=== PATIENT | male | born 1950 | race Caucasian/White ===

== ENCOUNTER 2018-07-31 11:53 | Emergency (ER) | payer MEDICARE ==
--- NOTE | 2018-07-31 13:56 | RADIOLOGY REPORT (SQ) ---
EXAM DESCRIPTION: CHEST SINGLE VIEW COMPLETED DATE/TIME: 07/31/2018 1:44 pm REASON FOR STUDY: Chest Pain COMPARISON: None. EXAM PARAMETERS: NUMBER OF VIEWS: One view. TECHNIQUE: Single frontal radiographic view of the chest acquired. RADIATION DOSE: NA LIMITATIONS: None. FINDINGS: LUNGS AND PLEURA: Few scattered interstitial markings. No consolidation, masses or pneumo thorax. No pleural effusion. MEDIASTINUM AND HILAR STRUCTURES: No masses. Contour normal. HEART AND VASCULAR STRUCTURES: Heart normal in size. Normal vasculature. BONES: No acute findings. HARDWARE: None in the chest. OTHER: No other significant finding. IMPRESSION: Few scattered interstitial markings. No consolidation, masses or pneumothorax. No pleur al effusion. TECHNICAL DOCUMENTATION: JOB ID: [id number] [place]-72 2010 [employer]- All Rights Reserved Reading location - IP/workstation name: [email or web address]
[2018-07-31] MEDS ORDERED: IPRATROPIUM/ALBUTEROL 0.5-2.5 MG/3 ML AMPUL NEB ONE (15:02)
[2018-07-31] MEDS ORDERED: PREDNISONE 20 MG TABLET PO ONE (15:02)
[2018-07-31] MEDS ORDERED: ASPIRIN 81 MG TABLET, CHEWABLE PO ONE (15:02)
--- NOTE | 2018-07-31 15:03 | ER Document Report ---
ED Medical Screen (RME) - General Chief Complaint: Chest Pain Stated Complaint: CHEST PAIN Time Seen by Provider: 07/31/18 15:01 Mode of Arrival: Wheelchair Information source: Patient Notes: Patient presents complaining of chest pain and shortness of breath for the past 2 days. Patient reports nausea and vomiting yesterday x4 episodes. Patient states that he has had episodes he blacks out causing him to fall today. hx: Hypertension, [place], diabetes, COPD I have greeted and performed a rapid initial assessment of this patient. A comprehensive ED assessment and evaluation of the patient, analysis of test results and completion of the medical decision making process will be conducted by additional ED providers. TRAVEL OUTSIDE OF THE [place] IN LAST 30 DAYS: No - Related Data Allergies/Adverse Reactions: Penicillins Allergy (Verified 07/31/18 12:20) Physical Exam - Vital signs Vitals: Temp Pulse Resp BP Pulse Ox 98.9 F 71 18 169/60 H 96 07/31/18 12:23 07/31/18 12:23 07/31/18 12:07/31/18 12:23 07/31/18 12:23 - Respiratory Respiratory status: No respiratory distress Breath sounds: Nonproductive cough, Wheezing - Cardiovascular Rhythm: Regular Heart sounds: S1 appreciated, S2 appreciated Course - Vital Signs Vital signs: Temp Pulse Resp BP Pulse Ox 98.9 F 71 18 169/60 H 96 07/31/18 12:23 07/31/18 12:23 07/31/18 12:23 07/31/18 12:23 07/31/18 12:23
[2018-07-31] MEDS: ALBUTEROL SULFATE 0.083% NEB 2.5 MG/3 ML AMPUL NEB SCH ×2 (15:21→16:02)
[2018-07-31 15:51] LABS: ABSOLUTE EOSINOPHILS # (AUTO) 0.2 10^3/uL (0.0-0.6); ABSOLUTE LYMPHOCYTES (AUTO) 1.7 10^3/uL (0.5-4.7); ABSOLUTE MONOCYTES (AUTO) 0.5 10^3/uL (0.1-1.4); ABSOLUTE NEUT (AUTO) 3.2 10^3/uL (1.7-8.2); BASOPHILS % (AUTO) 0.8 % (0-2); HEMATOCRIT 44.4 % (37.9-51.0); HEMOGLOBIN 15.4 g/dL (13.5-17.0); LYMPHOCYTES % (AUTO) 29.6 % (13-45); MEAN CORPUSCULAR HEMOGLOBIN 32.6 pg (27.0-33.4); MEAN CORPUSCULAR HGB CONC 34.6 g/dL (32.0-36.0); MEAN CORPUSCULAR VOLUME 94 fl (80-97); MONOCYTES % (AUTO) 9.6 % (3-13); PLATELET COUNT 111 10^3/uL (150-450); RED BLOOD COUNT 4.72 10^6/uL (4.35-5.55); RED CELL DISTRIBUTION WIDTH 12.8 % (11.5-14.0); TOTAL CELLS COUNTED % (AUTO) 100 %; WHITE BLOOD COUNT 5.6 10^3/uL (4.0-10.5)
[2018-07-31 15:57] LABS: INTERNATIONAL RATION (INR) 1.01; PROTHROMBIN TIME 13.8 SEC (11.4-15.4)
[2018-07-31 16:03] LABS: ALANINE AMINOTRANSFERASE 51 U/L (21-72); ALBUMIN 4.1 g/dL (3.5-5.0); ALKALINE PHOSPHATASE 59 U/L (38-126); ANION GAP 8 (5-19); ASPARTATE AMINO TRANSFERASE 48 U/L (17-59); BILIRUBIN,DIRECT 0.4 mg/dL (0.0-0.4); BILIRUBIN,TOTAL 0.9 mg/dL (0.2-1.3); BLOOD UREA NITROGEN 13 mg/dL (7-20); CALCIUM 9.6 mg/dL (8.4-10.2); CARBON DIOXIDE 32 mmol/L (22-30); CHLORIDE 102 mmol/L (98-107); CREATINE KINASE 216 U/L (55-170); GLUCOSE 101 mg/dL (75-110); POTASSIUM 3.7 mmol/L (3.6-5.0); TOTAL PROTEIN 7.6 g/dL (6.3-8.2)
[2018-07-31 16:15] LABS: CREATINE KINASE MB 3.3 ng/mL (<4.55); TROPONIN I 0.024 ng/mL
--- NOTE | 2018-07-31 19:39 | EKG REPORT ---
SEVERITY:- NORMAL ECG - SINUS RHYTHM : Confirmed by: Brenda Todd MD 31-Jul-2018 19:38:23
[2018-07-31] MEDS ORDERED: ONDANSETRON 4 MG TAB.RAPDIS PO ONE (19:51)
--- NOTE | 2018-07-31 19:54 | ER Document Report ---
ED General - General Chief Complaint: Chest Pain Stated Complaint: CHEST PAIN Time Seen by Provider: 07/31/18 15:01 Mode of Arrival: Wheelchair Notes: Patient is a 68-year-old male with past medical history of hypertension, hyperlipidemia, coronary artery disease who presents with multiple complaints. Patient states that for the past 24 hours he has had a throbbing, constant, diffuse chest pain. Symptoms started gradually, moderate in intensity. States this does not feel similar to when he has had ACS events in the past. States he is currently out of albuterol. Contrary to triage nursing note he denies any radiation of the pain to me. He also denies shortness of breath to me although he did acknowledge this complaint to other staff members. To me the patient's main complaint is that he is currently homeless and has nowhere to currently stay after leaving [facility] 6 today. He also states that he has been having difficulty eating or drinking secondary to nausea and vomiting but then requests a sandwich. Does not have a local primary care physician. TRAVEL OUTSIDE OF THE [place] IN LAST 30 DAYS: No - Related Data Allergies/Adverse Reactions: Penicillins Allergy (Verified 07/31/18 12:20) Past Medical History - General Information source: Patient - Social History Smoking Status: Current Every Day Smoker Frequency of alcohol use: None Drug Abuse: None Lives with: Homeless Family History: Reviewed & Not Pertinent Patient has suicidal ideation: No Patient has homicidal ideation: No - Past Medical History Cardiac Medical History: Reports: Hx Heart Attack, Hx Hypertension Pulmonary Medical History: Reports: Hx COPD Endocrine Medical History: Reports: Hx Diabetes Mellitus Type 2 Renal/ Medical History: Denies: Hx Peritoneal Dialysis Past Surgical History: Reports: Hx Cardiac Surgery - x2 stents in L leg Review of Systems - Review of Systems Notes: Constitutional: Negative for fever. HENT: Negative for sore throat. Eyes: Negative for visual changes. Cardiovascular: Positive for chest pain. Respiratory: Negative for shortness of breath. Gastrointestinal: Negative for abdominal pain, positive for nausea and vomiting Genitourinary: Negative for dysuria. Musculoskeletal: Negative for back pain. Skin: Negative for rash. Neurological: Negative for headaches, weakness or numbness. 10 point ROS negative except as marked above and in HPI. Physical Exam - Vital signs Vitals: Temp Pulse Resp BP Pulse Ox 98.9 F 71 18 169/60 H 96 07/31/18 12:23 07/31/18 12:23 07/31/18 12:23 07/31/18 12:23 07/31/18 12:23 Interpretation: Hypertensive Notes: PHYSICAL EXAMINATION: GENERAL: Well-appearing, well-nourished and in no acute distress. HEAD: Atraumatic, normocephalic. EYES: Pupils equal round and reactive to light, extraocular movements intact, sclera anicteric, conjunctiva are normal. ENT: nares patent, oropharynx clear without exudates. Moist mucous membranes. NECK: Normal range of motion, supple without lymphadenopathy LUNGS: Breath sounds clear to auscultation bilaterally and equal. No wheezes rales or rhonchi. HEART: Regular rate and rhythm without murmurs ABDOMEN: Soft, nontender, normoactive bowel sounds. No guarding, no rebound. No masses appreciated. EXTREMITIES: Normal range of motion, no pitting or edema. No cyanosis. NEUROLOGICAL: No focal neurological deficits. Moves all extremities spontaneously and on command. PSYCH: Normal mood, normal affect. SKIN: Warm, Dry, normal turgor, no rashes or lesions noted. Course - Re-evaluation Re-evalutation: 07/31/18 19:52 Patient presents with multiple complaints including chest pain, intermittent shortness of breath, nausea, vomiting and lightheadedness. The patient reports that the symptoms have been ongoing for the past 36 hours. Notably, when I enter the room the patient is asking for something to eat such as a sandwich, has all of his bags with him and notes that he currently has nowhere to live is looking to speak with social sciences research scientist. On exam patient has no concerning findings. Abdominal exam is benign and he does deny abdominal pain by history. Has a remote history of a cholecystectomy. EKG without ischemic changes. Initial troponin is negative and repeat is pending. Chest x-ray does not show overt infiltrates, no pulmonary edema or pneumothorax. Wells score 0, clinical history is not consistent with pulmonary embolus. Patient is tolerating oral intake without any difficulty. His clinical history is very atypical for ACS, dissection or any alternative life-threatening process. If repeat troponin is negative will contact social sciences research scientist to assist this patient and plan for discharge. Patient is in agreement with this plan 07/31/18 20:48 Repeat troponin remains normal. Patient remains chest pain-free. youth services specialist consult has been placed for the patient. At this time will discharge with return precautions and follow-up recommendations. Verbal discharge instructions given a the bedside and opportunity for questions given. Medication warnings reviewed. Patient is in agreement with this plan and has verbalized understanding of return precautions and the need for primary care follow-up in the next 24-72 hours. - Vital Signs Vital signs: Temp Pulse Resp BP Pulse Ox 98.7 F 71 20 132/75 H 96 07/31/18 21:02 07/31/18 12:23 07/31/18 21:02 07/31/18 21:02 07/31/18 21:02 - Laboratory Result Diagrams: 07/31/18 15:20 07/31/18 15:20 Laboratory results interpreted by me: 07/31/18 07/31/18 07/31/18 15:20 15:20 15:20 Plt Count 111 L Carbon Dioxide 32 H Creatine Kinase 216 H Lipase 327.1 H - Diagnostic Test Radiology reviewed: Image reviewed, Reports reviewed Radiology results interpreted by me: 07/31/18 19:53 Chest x-ray: No acute infiltrate or pneumothorax - EKG Interpretation by Me Additional EKG results interpreted by me: 07/31/18 19:53 Sinus rhythm, rate 65. No ST elevations or depressions. QTC is 433. Discharge - Discharge Clinical Impression: Chest discomfort COPD (chronic obstructive pulmonary disease) Qualifiers: COPD type: unspecified COPD Qualified Code(s): J44.9 - Chronic obstructive pulmonary disease, unspecified Condition: Good Disposition: HOME, SELF-CARE Additional Instructions: You were seen today for chest pain. The exact cause of your pain is unclear. However, based on your cardiac enzyme testing, chest x-ray, and EKG it does not appear that it is from an immediately life-threatening cause at this time. Although your testing here is normal is critical that you follow-up with your primary care physician for continued evaluation of this chest pain and possible stress testing. I recommended you see your physician within the next 24-48 hours to be evaluated for consideration of a stress test. Please return to emergency department immediately if you have worsening of your chest pain, s hortness of breath, vomiting, become unable to exert yourself due to pain or difficulty breathing, you pass out, or have any pain that radiates into your arms, jaw, or back. Please also return if you have any additional symptoms that are concerning to you. Prescriptions: Albuterol Sulfate [Albuterol Sulfate 5mg/1 mL] 5 mg NEB Q4 PRN #30 ml PRN Reason:
[2018-07-31] MEDS ORDERED: ONDANSETRON ODT 4 MG TAB (6 TAB/ER DISP) PO PRN (20:49)
[2018-07-31 21:09] VITALS: BP 132/75
== END 2018-07-31 21:14 | disposition home or self-care (01) ==
LOC: ER 11:53
DX: R07.9 Chest pain, unspecified (principal); J44.9 Chronic obstructive pulmonary disease, unspecified; T48.6X6A Underdosing of antiasthmatics, initial encounter; Z91.128 Patient's intentional underdosing of medication regimen for other reason; Z91.14 Patient's other noncompliance with medication regimen; R42 Dizziness and giddiness; F17.200 Nicotine dependence, unspecified, uncomplicated; I10 Essential (primary) hypertension; I25.10 Atherosclerotic heart disease of native coronary artery without angina pectoris; E11.9 Type 2 diabetes mellitus without complications; Z59.0 Homelessness; R11.2 Nausea with vomiting, unspecified; Z88.0 Allergy status to penicillin
CPT/HCPCS: 93005; 94640 ×2; 99285; 36415; 82553; 82550; 83690; 85025; 85610; 80053; 84484; 71045; 93010; A9270 ×5; J7512; J7620; S0119

== ENCOUNTER 2018-08-01 18:30 | Emergency (ER) | payer MEDICARE ==
[2018-08-01] MEDS ORDERED: IPRATROPIUM/ALBUTEROL 0.5-2.5 MG/3 ML AMPUL NEB ONE ×2 (19:19→23:46)
[2018-08-01] MEDS ORDERED: PREDNISONE 20 MG TABLET PO ONE (19:20)
--- NOTE | 2018-08-01 19:22 | ER Document Report ---
ED Medical Screen (RME) - General Chief Complaint: Shortness Of Breath Stated Complaint: DIFFICULTY BREATHING Time Seen by Provider: 08/01/18 19:18 Mode of Arrival: Ambulatory Information source: Patient Notes: Patient presents complaining of difficulty breathing since yesterday that he feels has worsened today. Patient is currently homeless and was seen here yesterday for this complaint. Patient states that he tried to get up with the homeless [facility] but he only got the voicemail. Patient states that he is not here because he is homeless because he feels his breathing is worse. Patient does have a history of COPD. I have greeted and performed a rapid initial assessment of this patient. A comprehensive ED assessment and evaluation of the patient, analysis of test results and completion of the medical decision making process will be conducted by additional ED providers. TRAVEL OUTSIDE OF THE [place] IN LAST 30 DAYS: No - Related Data Allergies/Adverse Reactions: Penicillins Allergy (Verified 08/01/18 18:37) Past Medical History - Social History Chew tobacco use (# tins/day): No Frequency of alcohol use: None Drug Abuse: None - Past Medical History Cardiac Medical History: Reports: Hx Heart Attack, Hx Hypertension Pulmonary Medical History: Reports: Hx COPD Endocrine Medical History: Reports: Hx Diabetes Mellitus Type 2 Renal/ Medical History: Denies: Hx Peritoneal Dialysis Past Surgical History: Reports: Hx Cardiac Surgery - x2 stents in L leg Physical Exam - Vital signs Vitals: Temp Pulse Resp BP Pulse Ox 98.7 F 67 18 160/58 H 96 08/01/18 18:41 08/01/18 18:41 08/01/18 18:41 08/01/18 18:41 08/01/18 18:41 - Respiratory Breath sounds: Nonproductive cough, Wheezing Course - Vital Signs Vital signs: Temp Pulse Resp BP Pulse Ox 98.7 F 67 18 160/58 H 96 08/01/18 18:41 08/01/18 18:41 08/01/18 18:41 08/01/18 18:41 08/01/18 18:41
[2018-08-01] MEDS ORDERED: ALBUTEROL SULFATE 0.083% NEB 2.5 MG/3 ML AMPUL NEB ONE ×2 (19:23→23:53)
--- NOTE | 2018-08-01 21:00 | RADIOLOGY REPORT (SQ) ---
EXAM DESCRIPTION: XR CHEST 2 VIEWS COMPLETED DATE/TME: 08/01/2018 19:19 CLINICAL HISTORY: 68 years, Male, sob COMPARISON: Prior study from NUMBER OF VIEWS: Two TECHNIQUE: Frontal and lateral radiograph of the chest were obtained LIMITATIONS: None. FINDINGS: Cardiac and mediastinal contours are stable. Lungs are clear. No pleural effusion or pneumothorax. IMPRESSION: No acute disease. copyright 2010 [employer]- All Rights Reserved
[2018-08-01] MEDS ORDERED: DEXAMETHASONE 4 MG TABLET PO ONE (23:36)
[2018-08-01] MEDS ORDERED: ALBUTEROL SULFATE HFA (90 MCG/PUFF) 200 PUFF/8.5 GM MDI IH ONE (23:50)
--- NOTE | 2018-08-01 23:50 | ER Document Report ---
ED General - General Chief Complaint: Shortness Of Breath Stated Complaint: DIFFICULTY BREATHING Time Seen by Provider: 08/01/18 19:18 Mode of Arrival: Ambulatory Notes: Patient is a 68-year-old male past medical history of COPD, coronary artery disease, presents with shortness of breath. Patient was seen yesterday, states that his shortness of breath worsened upon discharge as he was unable to fill his prescription for inhalers. Describes it as being a constant, mild to moderate shortness of breath. Exertion worsens the shortness of breath. Nothing improves or shortness of breath. States this feels very similar to COPD exacerbations that has had in the past. Denies any ongoing chest pain. Reports that he also has had pain and swelling to his left ankle that started within the last 24 hours. This is a throbbing, constant, aching discomfort worsened by walking. Nothing improves the pain. Denies a history of similar symptoms in the past. TRAVEL OUTSIDE OF THE [place] IN LAST 30 DAYS: No - Related Data Allergies/Adverse Reactions: Penicillins Allergy (Verified 08/01/18 18:37) Past Medical History - General Information source: Patient - Social History Smoking Status: Current Every Day Smoker Chew tobacco use (# tins/day): No Frequency of alcohol use: None Drug Abuse: None Lives with: Homeless Family History: Reviewed & Not Pertinent Patient has suicidal ideation: No Patient has homicidal ideation: No - Past Medical History Cardiac Medical History: Reports: Hx Heart Attack, Hx Hypertension Pulmonary Medical History: Reports: Hx COPD Endocrine Medical History: Reports: Hx Diabetes Mellitus Type 2 Renal/ Medical History: Denies: Hx Peritoneal Dialysis Past Surgical History: Reports: Hx Cardiac Surgery - x2 stents in L leg Review of Systems - Review of Systems Notes: Constitutional: Negative for fever. HENT: Negative for sore throat. Eyes: Negative for visual changes. Cardiovascular: Negative for chest pain. Respiratory: Positive for shortness of breath. Gastrointestinal: Negative for abdominal pain, vomiting or diarrhea. Genitourinary: Negative for dysuria. Musculoskeletal: Positive for left ankle pain Skin: Negative for rash. Neurological: Negative for headaches, weakness or numbness. 10 point ROS negative except as marked above and in HPI. Physical Exam - Vital signs Vitals: Temp Pulse Resp BP Pulse Ox 98.7 F 67 18 160/58 H 96 08/01/18 18:41 08/01/18 18:41 08/01/18 18:41 08/01/18 18:41 08/01/18 18:41 Interpretation: Hypertensive Notes: PHYSICAL EXAMINATION: GENERAL: Well-appearing, well-nourished and in no acute distress. HEAD: Atraumatic, normocephalic. EYES: Pupils equal round and reactive to light, extraocular movements intact, sclera anicteric, conjunctiva are normal. ENT: nares patent, oropharynx clear without exudates. Moist mucous membranes. NECK: Normal range of motion, supple without lymphadenopathy LUNGS: Breath sounds clear to auscultation bilaterally and equal. Faint expiratory wheezing in all lung [place] HEART: Regular rate and rhythm without murmurs, 2+ DP pulses bilaterally ABDOMEN: Soft, nontender, normoactive bowel sounds. No guarding, no rebound. No masses appreciated. EXTREMITIES: Normal range of motion, mild swelling to the left ankle. NEUROLOGICAL: No focal neurological deficits. Moves all extremities spontaneously and on command. PSYCH: Normal mood, normal affect. SKIN: Warm, Dry, normal turgor, no rashes or lesions noted. Course - Re-evaluation Re-evalutation: 08/01/18 23:49 Patient presents complaining of worsening of shortness of breath relative to yesterday. Admits that he did not fill his prescriptions for inhalers or steroids as he cannot afford these medications. Denies chest discomfort today. Is stating that he is having some left ankle pain and swelling although on exam there is minimal swelling and no deformity to the ankle, no limited range of motion, no edema nothing to suggest a DVT. X-ray demonstrates findings of o steoarthritis with likely reactive edema. Mild wheezing at time of presentation but vitals do not show significant hypoxemia or tachypnea. No retractions. Patient did clinically improve after receiving nebulizers here in the emergency department. Chest x-ray without evidence of an acute pneumonia. Laboratories do not show acute kidney injury or significant leukocytosis. Repeat troponin remains normal. Patient able to ambulate without any respiratory distress. Based on patient's overall reassuring assessment, I believe they are stable for outpatient management with steroids. I gave him a dose of dexamethasone here today due to his inability to fill outpatient prescriptions. I have also sent him home with an albuterol MDI. I do not suspect an acute alternative pathology at this time based on history and exam including acute pulmonary embolus, ACS, pneumothorax, or aortic dissection. At this time will discharge with return precautions and follow-up recommendations. Verbal discharge instructions given a the bedside and opportunity for questions given. Medication warnings reviewed. Patient is in agreement with this plan and has verbalized understanding of return precautions and the need for primary care follow-up in the next 24-72 hours. - Vital Signs Vital signs: Temp Pulse Resp BP Pulse Ox 98.1 F 54 L 18 159/59 H 96 08/02/18 02:04 08/02/18 02:04 08/02/18 02:04 08/02/18 02:04 08/02/18 02:04 - Laboratory Result Diagrams: 08/01/18 23:35 08/01/18 23:35 Laboratory results interpreted by me: 08/01/18 08/01/18 23:35 23:35 Plt Count 112 L Potassium 3.3 L - Diagnostic Test Radiology reviewed: Image reviewed, Reports reviewed Radiology results interpreted by me: 08/02/18 01:27 Chest x-ray: No acute infiltrate or pneumothorax Left ankle x-ray: Shaina arthritis with associated swelling - EKG Interpretation by Me Additional EKG results interpreted by me: 08/02/18 04:58 Sinus bradycardia, rate 44, intermittent PACs. No ST elevations or depressions. QTC 392. Discharge - Discharge Clinical Impression: Shortness of breath COPD (chronic obstructive pulmonary disease) Qualifiers: COPD type: unspecified COPD Qualified Code(s): J44.9 - Chronic obstructive pulmonary disease, unspecified Left ankle pain Qualifiers: Chronicity: acute Qualified Code(s): M25.572 - Pain in left ankle and joints of left foot Condition: Good Disposition: HOME, SELF-CARE Additional Instructions: You were seen for a COPD exacerbation. Your symptoms improved with treatment here in the emergency department. However, it is very important that you return to the emergency department immediately if you began to have worsening diff iculty breathing that does not respond to your normal home nebulizers. Your given a long-acting steroid here in the emergency department. Please use the albuterol inhaler with which you have been sent home as needed for shortness of breath. Please also follow closely with your primary care physician. You should eturn to emergency department if you develop fever greater than 101, persistent cough, persistent vomiting, pass out, or any other symptoms that are concerning to you. Your ankle x-ray shows arthritis and the swelling is likely due to the underlying arthritis. Take Tylenol ibuprofen per box instructions as needed for pain. You have been provided an Mateusz wrap and crutches to help reduce weightbearing on the ankle.
[2018-08-01 23:53] LABS: ABSOLUTE EOSINOPHILS # (AUTO) 0.1 10^3/uL (0.0-0.6); ABSOLUTE MONOCYTES (AUTO) 0.5 10^3/uL (0.1-1.4); ABSOLUTE NEUT (AUTO) 3.2 10^3/uL (1.7-8.2); BASOPHILS % (AUTO) 0.7 % (0-2); EOSINOPHILS % (AUTO) 1.3 % (0-6); HEMATOCRIT 43.9 % (37.9-51.0); HEMOGLOBIN 14.9 g/dL (13.5-17.0); LYMPHOCYTES % (AUTO) 34.4 % (13-45); MEAN CORPUSCULAR HEMOGLOBIN 32.2 pg (27.0-33.4); MEAN CORPUSCULAR HGB CONC 33.9 g/dL (32.0-36.0); MEAN CORPUSCULAR VOLUME 95 fl (80-97); MONOCYTES % (AUTO) 8.8 % (3-13); PLATELET COUNT 112 10^3/uL (150-450); RED BLOOD COUNT 4.63 10^6/uL (4.35-5.55); RED CELL DISTRIBUTION WIDTH 13.1 % (11.5-14.0); SEGMENTED NEUTROPHILS % (AUTO) 54.8 % (42-78); TOTAL CELLS COUNTED % (AUTO) 100 %; WHITE BLOOD COUNT 5.8 10^3/uL (4.0-10.5)
[2018-08-02 00:06] LABS: ANION GAP 7 (5-19); BLOOD UREA NITROGEN 19 mg/dL (7-20); CALCIUM 9.2 mg/dL (8.4-10.2); CARBON DIOXIDE 30 mmol/L (22-30); CHLORIDE 102 mmol/L (98-107); GLUCOSE 85 mg/dL (75-110); POTASSIUM 3.3 mmol/L (3.6-5.0); SODIUM 139.2 mmol/L (137-145)
--- NOTE | 2018-08-02 00:39 | RADIOLOGY REPORT (SQ) ---
EXAM DESCRIPTION: XR ANKLE 2 VIEWS COMPLETED DATE/TME: 08/01/2018 23:45 CLINICAL HISTORY: 68 years Male, ankle pain COMPARISON: None. Findings: Mild/moderate osteoarthritis. Mild diffuse swelling moderate fragmented calcaneal enthesophytes. Small chronic calcification at the distal Achilles tendon may indicate chronic Achilles tendinous injury. Atherosclerotic vascular disease. Bones, joints, and soft tissues of the LEFT XR ANKLE 2 VIEWS appear otherwise unremarkable. IMPRESSION: Swelling.
[2018-08-02 02:13] VITALS: BP 159/59
--- NOTE | 2018-08-02 07:55 | EKG REPORT ---
SEVERITY:- ABNORMAL ECG - SINUS RHYTHM MULTIPLE ATRIAL PREMATURE COMPLEXES : Confirmed by: Brenda Todd MD 02-Aug-2018 07:54:27
== END 2018-08-02 02:14 | disposition home or self-care (01) ==
LOC: ER 18:30
DX: R06.02 Shortness of breath (principal); M25.572 Pain in left ankle and joints of left foot; R06.00 Dyspnea, unspecified; J44.9 Chronic obstructive pulmonary disease, unspecified; F17.200 Nicotine dependence, unspecified, uncomplicated; E11.9 Type 2 diabetes mellitus without complications; I25.2 Old myocardial infarction; Z88.0 Allergy status to penicillin
CPT/HCPCS: 93005; 99285; 36415; 85025; 80048; 84484; 73600; 71046; 93010; A9270 ×3; J3490; J7620

== ENCOUNTER 2018-08-07 13:08 | Inpatient (IN) | payer MEDICARE ==
[2018-08-07] MEDS ORDERED: IPRATROPIUM/ALBUTEROL 0.5-2.5 MG/3 ML AMPUL NEB ONE (13:34)
[2018-08-07] MEDS ORDERED: METHYLPREDNISOLONE INJ 125 MG/2 ML SDV IV ONE (13:34)
--- NOTE | 2018-08-07 13:34 | ER Document Report ---
ED Respiratory Problem - General Stated Complaint: DIFFICULTY BREATHING Time Seen by Provider: 08/07/18 13:27 Notes: [age]-year-old male history congestive heart failure and smoking presents to the ER with shortness of breath and leg swelling and start since last . Patient is homeless. He is been doing a lot of walking but he states his legs have been swelling more. He has been coughing the cough is been nonproductive. Complains of a lot of exertional dyspnea. States he broke out into a sweat earlier today. Complain of a lot of chest tightness. Not chest pain in particular. Some nausea no vomiting. No fever no chills. TRAVEL OUTSIDE OF THE [place] IN LAST 30 DAYS: No - Related Data Allergies/Adverse Reactions: Penicillins Allergy (Verified 08/01/18 18:37) Past Medical History - Social History Smoking Status: Current Every Day Smoker Family History: Reviewed & Not Pertinent - Past Medical History Cardiac Medical History: Reports: Hx Heart Attack, Hx Hypertension Pulmonary Medical History: Reports: Hx COPD Endocrine Medical History: Reports: Hx Diabetes Mellitus Type 2 Renal/ Medical History: Denies: Hx Peritoneal Dialysis Past Surgical History: Reports: Hx Cardiac Surgery - x2 stents in L leg Review of Systems - Review of Systems Constitutional: denies: Chills, Fever Cardiovascular: Other - Chest tightness. denies: Chest pain Respiratory: Cough, Short of breath, Wheezing. denies: Hurts to breathe, Hemoptysis Gastrointestinal: Nausea. denies: Diarrhea, Vomiting Genitourinary: denies: Dysuria Neurological/Psychological: denies: Headaches -: Yes All other systems reviewed and negative Physical Exam - Vital signs Vitals: BP 159/45 H 08/07/18 13:22 - Notes Notes: GENERAL_APPEARANCE: well_nourished, alert, cooperative, no dyspnea VITALS: reviewed, see vital signs table. HEAD: no_swelling\tenderness on the head. EYES: PERRL, EOMI, conjunctiva_clear. NOSE: no_nasal_discharge. MOUTH: (-)decreased moisture. THROAT: no_tonsilar_inflammation, no_airway_obstruction. no_lymphadenopathy NECK: supple, no_neck_tenderness, (-)thyromegaly. BACK: no_back_tenderness. CHEST_WALL: no_chest_tenderness. LUNGS: Scattered_wheezing, no_rales, no_rhonchi, (-)accessory muscle use, fair air exchange bilateral. HEART: normal_rate, normal_rhythm, normal_S1, normal_S2, (-)S3, (-)S4, no_murmur, no_rub. ABDOMEN: soft, no_abd_tenderness, (-)guarding, (-)rebound, no_organomegaly, no_abd_masses. EXTREMITIES: strength 5/5 in all_extremities, good pulses in all_extremities, no_swelling\tenderness in the extremities, no_edema. SKIN: warm, dry, good_color, no_rash. MENTAL_STATUS: speech_clear, oriented_X_3, normal_affect, responds_appropriately to questions. Course - Re-evaluation Re-evalutation: 08/07/18 13:34 68-year-old now presents emerged department with difficulty breathing. He does have wheezing on exam he does have lower extremity swelling. His one foot does have some black and blue izaguirre but they look old. We will get an x-ray that to assess for any old fractures the patient is homeless and does walk a lot. A lot of this may just be dependent edema with a COPD exacerbation. 08/07/18 16:38 Patient has a COPD exacerbation and did better after aerosol treatments and steroids. Feet are swollen his BNP is low he does sound wheezy but not crackly. I do not think he is in failure think his lower extremity edema is due to cellulitis and dependent edema from walking the patient is walking and sometimes he walks and poor foot wear and he has a lot of bruising and small cuts to the feet. This is likely the cause of the cellulitis. He has pulses present. I gave the patient a dose of Unasyn here got cultures and a lactic he is not septic. However he has no follow-up mechanism him being homeless. Will hospitalize him for observation serial aerosol treatments for good pulmonary hygiene and a couple doses of IV antibiotics for the cellulitis. - Vital Signs Vital signs: Temp Pulse Resp BP Pulse Ox 17 142/53 H 100 08/07/18 14:02 08/07/18 14:02 08/07/18 14:02 - Laboratory Result Diagrams: 08/07/18 13:30 08/07/18 13:30 Laboratory results interpreted by me: 08/07/18 08/07/18 13:30 13:30 RBC 4.22 L Plt Count 107 L Potassium 3.4 L Glucose 197 H Creatine Kinase 310 H - Diagnostic Test Radiology reviewed: Reports reviewed Radiology results interpreted by me: 08/07/18 16:37 Chest X-Ray 08/07/18 13:30 IMPRESSION: NO ACUTE RADIOGRAPHIC FINDING IN THE CHEST. Foot X-Ray 08/07/18 13:30 IMPRESSION: NEGATIVE STUDY OF THE RIGHT FOOT. NO RADIOGRAPHIC EVIDENCE OF ACUTE INJURY. Discharge - Discharge Clinical Impression: Cellulitis of both feet COPD (chronic obstructive pulmonary disease) Qualifiers: COPD type: COPD with acute exacerbation Qualified Code(s): J44.1 - Chronic obstructive pulmonary disease with (acute) exacerbation Disposition: ADMITTED OBSERVATION Admitting Provider: Denny (Hospitalist) Unit Admitted: Telemetry
[2018-08-07 13:46] LABS: ABSOLUTE BASOPHILS # (AUTO) 0.1 10^3/uL (0.0-0.2); ABSOLUTE EOSINOPHILS # (AUTO) 0.2 10^3/uL (0.0-0.6); ABSOLUTE LYMPHOCYTES (AUTO) 1.2 10^3/uL (0.5-4.7); ABSOLUTE MONOCYTES (AUTO) 0.5 10^3/uL (0.1-1.4); ABSOLUTE NEUT (AUTO) 3.7 10^3/uL (1.7-8.2); BASOPHILS % (AUTO) 0.9 % (0-2); EOSINOPHILS % (AUTO) 4.2 % (0-6); HEMATOCRIT 39.3 % (37.9-51.0); HEMOGLOBIN 13.9 g/dL (13.5-17.0); LYMPHOCYTES % (AUTO) 20.7 % (13-45); MEAN CORPUSCULAR HEMOGLOBIN 32.8 pg (27.0-33.4); MEAN CORPUSCULAR HGB CONC 35.2 g/dL (32.0-36.0); MEAN CORPUSCULAR VOLUME 93 fl (80-97); MONOCYTES % (AUTO) 8.7 % (3-13); PLATELET COUNT 107 10^3/uL (150-450); RED BLOOD COUNT 4.22 10^6/uL (4.35-5.55); RED CELL DISTRIBUTION WIDTH 12.9 % (11.5-14.0); SEGMENTED NEUTROPHILS % (AUTO) 65.5 % (42-78); TOTAL CELLS COUNTED % (AUTO) 100 %; WHITE BLOOD COUNT 5.6 10^3/uL (4.0-10.5)
--- NOTE | 2018-08-07 13:54 | RADIOLOGY REPORT (SQ) ---
EXAM DESCRIPTION: CHEST SINGLE VIEW COMPLETED DATE/TIME: 08/07/2018 1:45 pm REASON FOR STUDY: SOB COMPARISON: 08/01/2018 EXAM PARAMETERS: NUMBER OF VIEWS: One view. TECHNIQUE: Single frontal radiographic view of the chest acquired. RADIATION DOSE: NA LIMITATIONS: None. FINDINGS: LUNGS AND PLEURA: No opacities, masses or pneumothorax. No pleural effusion. MEDIASTINUM AND HILAR STRUCTURES: No masses. Contour normal. HEART AND VASCULAR STRUCTURES: Heart normal in size. Normal vasculature. BONES: No acute findings. HARDWARE: None in the chest. OTHER: No other significant finding. IMPRESSION: NO ACUTE RADIOGRAPHIC FINDING IN THE CHEST. TECHNICAL DOCUMENTATION: JOB ID: [id number] [employer]- All Rights Reserved Reading location - IP/workstation name: [email or web address]
--- NOTE | 2018-08-07 13:56 | RADIOLOGY REPORT (SQ) ---
EXAM DESCRIPTION: FOOT RIGHT COMPLETE COMPLETED DATE/TIME: 08/07/2018 1:45 pm REASON FOR STUDY: FOOT PAIN COMPARISON: None. NUMBER OF VIEWS: Three views. TECHNIQUE: AP, lateral and oblique radiographic images acquired of the right foot. LIMITATIONS: None. FINDINGS: MINERALIZATION: Normal. BONES: No fracture or dislocation. There is deformity of the head of the 3rd metatarsal suggesting p rior injury. JOINTS: No effusions. SOFT TISSUES: No soft tissue swelling. No foreign body. OTHER: No other significant finding. IMPRESSION: NEGATIVE STUDY OF THE RIGHT FOOT. NO RADIOGRAPHIC EVIDENCE OF ACUTE INJURY. TECHNICAL DOCUMENTATION: JOB ID: [id number] [employer]- All Rights Reserved Reading location - IP/workstation name: [email or web address]
[2018-08-07 13:57] LABS: INTERNATIONAL RATION (INR) 1.07; PROTHROMBIN TIME 14.5 SEC (11.4-15.4)
--- NOTE | 2018-08-07 14:01 | EKG REPORT ---
SEVERITY:- BORDERLINE ECG - SINUS RHYTHM VENTRICULAR PREMATURE COMPLEX BORDERLINE PROLONGED QT INTERVAL : Confirmed by: John Kohler MD 07-Aug-2018 14:00:51
[2018-08-07 14:04] LABS: ALANINE AMINOTRANSFERASE 38 U/L (21-72); ALBUMIN 3.5 g/dL (3.5-5.0); ALKALINE PHOSPHATASE 59 U/L (38-126); ANION GAP 7 (5-19); ASPARTATE AMINO TRANSFERASE 28 U/L (17-59); BILIRUBIN,DIRECT 0.3 mg/dL (0.0-0.4); BLOOD UREA NITROGEN 13 mg/dL (7-20); CALCIUM 9.3 mg/dL (8.4-10.2); CARBON DIOXIDE 29 mmol/L (22-30); CHLORIDE 102 mmol/L (98-107); CREATINE KINASE 310 U/L (55-170); GLUCOSE 197 mg/dL (75-110); POTASSIUM 3.4 mmol/L (3.6-5.0); SODIUM 138.4 mmol/L (137-145); TOTAL PROTEIN 6.4 g/dL (6.3-8.2)
[2018-08-07 14:17] LABS: TROPONIN I 0.015 ng/mL
[2018-08-07] MEDS ORDERED: ONDANSETRON HCL INJ/PF 4 MG/2 ML SDV IV PRN (17:19)
--- NOTE | 2018-08-07 17:19 | PDOC H&P ---
History of Present Illness Admission Date/PCP: 08/07/18 16:44 Patient complains of: Came to the emergency room with complaints of pain redness in both feet. History of Present Illness: AREN SIMPSON is a 68 year old male with a history of hypertension, diabetes mellitus, congestive heart failure, myocardial ischemia left lower leg stent placement, left carotid endarterectomy, COPD, emphysema came to the emergency room with complaints of redness of the both feet associated with swelling and pain for the last few days. He is homeless and walking in the [place]. He is also told the ER physician he has a problem with breathing and increasing wheezing with minimal activity. Medical consult was called for admission. Patient denies any history of fever complaining of nonspecific shortness of breath associated wheezing and dry cough denies any headache dizzy spells denies any nausea vomiting diarrhea denies any abdominal pains denies any symptoms complaining of redness swelling of the both feet associated with severe pain. Past Medical History Cardiac Medical History: Reports: Myocardial Infarction, Hypertension Pulmonary Medical History: Reports: Chronic Obstructive Pulmonary Disease (COPD) Endocrine Medical History: Reports: Diabetes Mellitus Type 2 Psychiatric Medical History: Reports: Depression Past Surgical History Past Surgical History: Reports: Cholecystectomy, Other - Left carotid endarterectomy, stent placement in the left lower extremity. Social History Information Source: Patient Smoking Status: Current Every Day Smoker Hx Recreational Drug Use: No Hx Prescription Drug Abuse: No - Advance Directive Resuscitation Status: Full Code Family History Family History: Reviewed & Not Pertinent Parental Family History Reviewed: Yes - Family history of hypertension and diabetes mellitus Children Family History Reviewed: Yes Sibling(s) Family History Reviewed.: Yes Medication/Allergy Home Medications: Albuterol Sulfate [Albuterol Sulfate 5mg/1 mL] 5 mg NEB Q4 PRN #30 ml 07/31/18 Allergies/Adverse Reactions: Penicillins Allergy (Verified 08/07/18 16:57) Review of Systems Constitutional: ABSENT: fever(s) Eyes: ABSENT: visual disturbances Ears: ABSENT: hearing changes Cardiovascular: ABSENT: chest pain, dyspnea on exertion, edema, orthropnea, palpitations Respiratory: PRESENT: cough, dyspnea Gastrointestinal: ABSENT: abdominal pain, constipation, diarrhea, hematemesis, hematochezia, nausea, vomiting Genitourinary: ABSENT: dysuria, hematuria Integumentary: PRESENT: wounds, other - Planing of redness of the both feet associated to swelling and pain. Neurological: ABSENT: abnormal gait, abnormal speech, confusion, dizziness, focal weakness, syncope Endocrine: ABSENT: cold intolerance, heat intolerance, polydipsia, polyuria Hematologic/Lymphatic: ABSENT: easy bleeding, easy bruising Physical Exam Vital Signs: Temp Pulse Resp BP Pulse Ox 98.5 F 15 194/55 H 97 08/07/18 15:02 08/07/18 16:02 08/07/18 16:02 08/07/18 16:02 General appearance: PRESENT: no acute distress, obese Head exam: PRESENT: atraumatic Eye exam: PRESENT: PERRLA Mouth exam: PRESENT: moist, tongue midline Teeth exam: PRESENT: poor dentation Neck exam: ABSENT: carotid bruit, JVD, lymphadenopathy, thyromegaly Respiratory exam: PRESENT: decreased breath sounds, wheezes Cardiovascular exam: PRESENT: RRR. ABSENT: diastolic murmur, rubs, systolic murmur Pulses: PRESENT: normal dorsalis pedis pul GI/Abdominal exam: PRESENT: normal bowel sounds, soft. ABSENT: distended, guarding, mass, organolmegaly, rebound, tenderness Rectal exam: PRESENT: deferred Extremities exam: PRESENT: +1 edema, other - Both feet looks erythematous with scratch izaguirre, looks like cellulitis. Neurological exam: PRESENT: alert, awake, oriented to person, oriented to place, oriented to time, oriented to situation, CN II-XII grossly intact. ABSENT: motor sensory deficit Psychiatric exam: PRESENT: anxious Results Laboratory Results: 08/07/18 13:30 08/07/18 13:30 08/07/18 08/07/18 08/07/18 13:30 13:30 15:25 WBC 5.6 RBC 4.22 L Hgb 13.9 Hct 39.3 MCV 93 MCH 32.8 MCHC 35.2 RDW 12.9 Plt Count 107 L Seg Neutrophils % 65.5 Lymphocytes % 20.7 Monocytes % 8.7 Eosinophils % 4.2 Basophils % 0.9 Absolute Neutrophils 3.7 Absolute Lymphocytes 1.2 Absolute Monocytes 0.5 Absolute Eosinophils 0.2 Absolute Basophils 0.1 Sodium 138.4 Potassium 3.4 L Chloride 102 Carbon Dioxide 29 Anion Gap 7 BUN 13 Creatinine 0.70 Est GFR ( Amer) > 60 Est GFR (Non-Af Amer) > 60 Glucose 197 H Lactic Acid 1.2 Calcium 9.3 Total Bilirubin 1.0 AST 28 ALT 38 Alkaline Phosphatase 59 Total Protein 6.4 Albumin 3.5 08/07/18 08/07/18 13:30 13:30 Creatine Kinase 310 H Troponin I 0.015 NT-Pro-B Natriuret Pep 425 Impressions: Chest X-Ray 08/07/18 13:30 IMPRESSION: NO ACUTE RADIOGRAPHIC FINDING IN THE CHEST. Foot X-Ray 08/07/18 13:30 IMPRESSION: NEGATIVE STUDY OF THE RIGHT FOOT. NO RADIOGRAPHIC EVIDENCE OF ACUTE INJURY. Assessment and Plan - Diagnosis (1) COPD (chronic obstructive pulmonary disease) Qualifiers: COPD type: COPD with acute exacerbation Qualified Code(s): J44.1 - Chronic obstructive pulmonary disease with (acute) exacerbation Is this a current diagnosis for this admission?: Yes Plan: 08/07/2018 patient is going to be admitted for COPD exacerbation to place him on oxygen 2 L nasal cannula, restart his albuterol inhaler and albuterol nebulizations. GI prophylaxis DVT prophylaxis initiated. To place him on nicotine patch. COPD most likely secondary to chronic smoking. pt is not on home oxygen. (2) Cellulitis of both feet Is this a current diagnosis for this admission?: Yes Plan: 08/07/2018-plan to do the blood cultures and to start him on levo floxacillin 500 mg IV daily. Patient is allergic to penicillins. (3) CHF (congestive heart failure) Is this a current diagnosis for this admission?: No Plan: 08/07/2018-patient is given history of congestive heart failure. Have the echocardiogram report to restart his Coreg he is not in any diuretics at this point as per the patient. Based on the history most likely has chronic systolic heart failure. (4) HTN (hypertension) Is this a current diagnosis for this admission?: No Plan: 08/07/2018-patient blood pressure in the emergency room is 194/105. To start him on hydralazine 10 mg p.o. every 6 hours and restart Coreg 3.25 mg p.o. twice a day and to start him on Lasix 20 mg p.o. twice daily. To start him on low- sodium diet. (5) Diabetes Is this a current diagnosis for this admission?: No Plan: 08/07/2018-patient given history of type 2 diabetes mellitus. To check his hemoglobin A1c he takes metformin at home. To hold metformin during the hospital stay and to place him on insulin sliding scale before meals and at bedtime. (6) PVD (peripheral vascular disease) Is this a current diagnosis for this admission?: No Plan: 08/07/2018-patient given history of peripheral vascular disease he has left lower extremity stent was placed 8 years ago. He is on Plavix. Is also taking aspirin at home. Plan to resume those medications. (7) Tobacco use Is this a current diagnosis for this admission?: No Plan: 08/07/2018-patient is given history of chronic smoking for more than 40 years. Smokes close to 1 pack/day. Smoking counseling was provided for more than [address] him on nicotine patch 21 mg daily. - Time Time Spent with patient: 25-34 minutes Smoking Cessation Education: over 10 minutes Medications reviewed and adjusted accordingly: Yes Anticipated discharge: Home
[2018-08-07] MEDS ORDERED: GLUCAGON,HUMAN RECOMB 1 MG INJ IM PRN (17:30)
[2018-08-07] MEDS ORDERED: DEXTROSE 50%-WATER 25 GM/50 ML DISP.SYRIN IV PRN ×2 (17:30)
[2018-08-07] MEDS ORDERED: DEXTROSE 40% GEL 15 GM TUBE PO PRN ×2 (17:30)
[2018-08-07 19:21] LABS: URINE AMPHETAMINES SCREEN NEGATIVE; URINE BARBITURATES SCREEN NEGATIVE; URINE BENZODIAZEPINES SCREEN NEGATIVE; URINE COCAINE SCREEN NEGATIVE; URINE MARIJUANA (THC) SCREEN NEGATIVE; URINE METHADONE SCREEN NEGATIVE; URINE PHENCYCLIDINE SCREEN NEGATIVE
[2018-08-07 20:57] LABS: CREATINE KINASE MB 3.77 ng/mL (<4.55); TROPONIN I 0.014 ng/mL
[2018-08-07] MEDS: IPRATROPIUM/ALBUTEROL 0.5-2.5 MG/3 ML AMPUL NEB SCH (21:04)
[2018-08-07] MEDS: INSULIN REG, HUMAN 100 UNIT/ML 3 ML VIAL (PYX) SUBCUT SCH ×2 (21:18→21:30)
[2018-08-07] MEDS: FAMOTIDINE 20 MG TABLET PO SCH (21:29)
[2018-08-07] MEDS: GABAPENTIN 300 MG CAPSULE PO SCH (21:30)
[2018-08-07] MEDS ORDERED: CARVEDILOL 3.125 MG TABLET PO SCH (22:00)
--- NOTE | 2018-08-07 22:54 | EKG REPORT ---
SEVERITY:- NORMAL ECG - SINUS RHYTHM : Confirmed by: John Kohler MD 07-Aug-2018 22:54:03
[2018-08-08] MEDS: IPRATROPIUM/ALBUTEROL 0.5-2.5 MG/3 ML AMPUL NEB SCH ×7 (00:11→23:43)
[2018-08-08 02:24] LABS: CREATINE KINASE MB 4.91 ng/mL (<4.55); TROPONIN I 0.012 ng/mL
[2018-08-08] MEDS: GABAPENTIN 300 MG CAPSULE PO SCH ×3 (05:50→21:13)
[2018-08-08 07:56] LABS: ABSOLUTE LYMPHOCYTES (AUTO) 0.8 10^3/uL (0.5-4.7); ABSOLUTE MONOCYTES (AUTO) 0.4 10^3/uL (0.1-1.4); ABSOLUTE NEUT (AUTO) 3.4 10^3/uL (1.7-8.2); BASOPHILS % (AUTO) 0.2 % (0-2); EOSINOPHILS % (AUTO) 0.1 % (0-6); HEMATOCRIT 39.1 % (37.9-51.0); HEMOGLOBIN 13.4 g/dL (13.5-17.0); LYMPHOCYTES % (AUTO) 16.4 % (13-45); MEAN CORPUSCULAR HEMOGLOBIN 32.3 pg (27.0-33.4); MEAN CORPUSCULAR HGB CONC 34.4 g/dL (32.0-36.0); MEAN CORPUSCULAR VOLUME 94 fl (80-97); MONOCYTES % (AUTO) 9.1 % (3-13); RED BLOOD COUNT 4.16 10^6/uL (4.35-5.55); RED CELL DISTRIBUTION WIDTH 13.2 % (11.5-14.0); SEGMENTED NEUTROPHILS % (AUTO) 74.2 % (42-78); TOTAL CELLS COUNTED % (AUTO) 100 %; WHITE BLOOD COUNT 4.6 10^3/uL (4.0-10.5)
[2018-08-08] MEDS: INSULIN REG, HUMAN 100 UNIT/ML 3 ML VIAL (PYX) SUBCUT SCH ×4 (08:07→21:43)
[2018-08-08 08:25] LABS: ALANINE AMINOTRANSFERASE 35 U/L (21-72); ALBUMIN 3.3 g/dL (3.5-5.0); ALKALINE PHOSPHATASE 51 U/L (38-126); ANION GAP 7 (5-19); ASPARTATE AMINO TRANSFERASE 25 U/L (17-59); BILIRUBIN,DIRECT 0.3 mg/dL (0.0-0.4); BILIRUBIN,TOTAL 0.6 mg/dL (0.2-1.3); BLOOD UREA NITROGEN 13 mg/dL (7-20); CALCIUM 9.2 mg/dL (8.4-10.2); CARBON DIOXIDE 30 mmol/L (22-30); CHLORIDE 107 mmol/L (98-107); CHOLESTEROL 119.66 mg/dL (0-200); CREATINE KINASE 409 U/L (55-170); GLUCOSE 166 mg/dL (75-110); POTASSIUM 3.7 mmol/L (3.6-5.0); SODIUM 143.6 mmol/L (137-145); TOTAL PROTEIN 6.2 g/dL (6.3-8.2); TRIGLYCERIDES 54 mg/dL (<150)
[2018-08-08 08:27] LABS: PLATELET COUNT 96 10^3/uL (150-450)
[2018-08-08 08:36] LABS: DIRECT LDL 77 mg/dL (<100)
[2018-08-08 08:37] LABS: CREATINE KINASE MB 6.6 ng/mL (<4.55); TROPONIN I 0.018 ng/mL
[2018-08-08] MEDS: ENOXAPARIN SODIUM INJ 40 MG/0.4 ML DISP.SYRIN SUBCUT SCH (09:15)
[2018-08-08] MEDS: CLOPIDOGREL BISULFATE 75 MG TABLET PO SCH (09:16)
[2018-08-08] MEDS: FAMOTIDINE 20 MG TABLET PO SCH ×2 (09:16→21:13)
[2018-08-08] MEDS: NICOTINE 21 MG/24 HR PATCH.TD24 TD SCH (09:16)
--- NOTE | 2018-08-08 11:16 | PDOC PROGRESS REPORT ---
Subjective Progress Note for:: 08/08/18 Subjective:: 68 year old male with a history of hypertension, diabetes mellitus, congestive heart failure, myocardial ischemia left lower leg stent placement, left carotid endarterectomy, COPD, emphysema came to the emergency room with complaints of redness of the both feet associated with swelling and pain for the last few days. He is homeless and walking in the [place]. He is also told the ER physician he has a problem with breathing and increasing wheezing with minimal activity. Medical consult was called for admission. Patient denies any history of fever complaining of nonspecific shortness of breath associated wheezing and dry cough denies any headache dizzy spells denies any nausea vomiting diarrhea denies any abdominal pains denies any symptoms complaining of redness swelling of the both feet associated with severe pain. 08/08/2018 no acute events in the last 24 hours. Patient is afebrile. Comfortably sleeping in the bed. 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 Probably we can discharge home tomorrow. Reason For Visit: COPD EXACERBATION AND CELLULITIS BOTH FEET Physical Exam Vital Signs: Temp Pulse Resp BP Pulse Ox 97.9 F 70 14 158/45 H 98 08/08/18 08:03 08/08/18 08:42 08/08/18 08:42 08/08/18 08:03 08/08/18 08:42 Intake & Output 08/07/18 08/08/18 08/09/18 06:59 06:59 06:59 Weight 125 kg General appearance: PRESENT: no acute distress Head exam: PRESENT: atraumatic Eye exam: PRESENT: PERRLA Neck exam: ABSENT: carotid bruit, JVD, lymphadenopathy, thyromegaly Respiratory exam: PRESENT: decreased breath sounds Cardiovascular exam: PRESENT: RRR. ABSENT: diastolic murmur, rubs, systolic murmur GI/Abdominal exam: PRESENT: normal bowel sounds, soft. ABSENT: distended, guarding, mass, organolmegaly, rebound, tenderness Rectal exam: PRESENT: deferred Extremities exam: PRESENT: full ROM. ABSENT: calf tenderness, clubbing, pedal edema Neurological exam: PRESENT: alert, awake, oriented to person, oriented to place, oriented to time, oriented to situation, CN II-XII grossly intact. ABSENT: motor sensory deficit Psychiatric exam: PRESENT: appropriate affect, normal mood. ABSENT: homicidal ideation, suicidal ideation Results Laboratory Results: 08/08/18 07:30 08/08/18 07:30 08/07/18 08/07/18 08/07/18 13:30 13:30 15:25 WBC 5.6 RBC 4.22 L Hgb 13.9 Hct 39.3 MCV 93 MCH 32.8 MCHC 35.2 RDW 12.9 Plt Count 107 L Seg Neutrophils % 65.5 Lymphocytes % 20.7 Monocytes % 8.7 Eosinophils % 4.2 Basophils % 0.9 Absolute Neutrophils 3.7 Absolute Lymphocytes 1.2 Absolute Monocytes 0.5 Absolute Eosinophils 0.2 Absolute Basophils 0.1 Sodium 138.4 Potassium 3.4 L Chloride 102 Carbon Dioxide 29 Anion Gap 7 BUN 13 Creatinine 0.70 Est GFR ( Amer) > 60 Est GFR (Non-Af Amer) > 60 Glucose 197 H Lactic Acid 1.2 Calcium 9.3 Magnesium Total Bilirubin 1.0 AST 28 ALT 38 Alkaline Phosphatase 59 Total Protein 6.4 Albumin 3.5 Triglycerides Cholesterol LDL Cholesterol Direct VLDL Cholesterol HDL Cholesterol TSH 08/08/18 08/08/18 08/08/18 07:30 07:30 07:30 WBC 4.6 RBC 4.16 L Hgb 13.4 L Hct 39.1 MCV 94 MCH 32.3 MCHC 34.4 RDW 13.2 Plt Count 96 L Seg Neutrophils % 74.2 Lymphocytes % 16.4 Monocytes % 9.1 Eosinophils % 0.1 Basophils % 0.2 Absolute Neutrophils 3.4 Absolute Lymphocytes 0.8 Absolute Monocytes 0.4 Absolute Eosinophils 0.0 Absolute Basophils 0.0 Sodium 143.6 Potassium 3.7 Chloride 107 Carbon Dioxide 30 Anion Gap 7 BUN 13 Creatinine 0.64 Est GFR ( Amer) > 60 Est GFR (Non-Af Amer) > 60 Glucose 166 H Lactic Acid Calcium 9.2 Magnesium 2.0 Total Bilirubin 0.6 AST 25 ALT 35 Alkaline Phosphatase 51 Total Protein 6.2 L Albumin 3.3 L Triglycerides 54 Cholesterol 119.66 LDL Cholesterol Direct 77 VLDL Cholesterol 11.0 HDL Cholesterol 41 TSH 1.01 08/07/18 08/07/18 08/07/18 13:30 13:30 20:00 Creatine Kinase 310 H 250 H CK-MB (CK-2) Troponin I 0.015 NT-Pro-B Natriuret Pep 425 08/07/18 08/08/18 08/08/18 20:00 01:40 01:40 Creatine Kinase 295 H CK-MB (CK-2) 3.77 4.91 H Troponin I 0.014 0.012 NT-Pro-B Natriuret Pep 08/08/18 08/08/18 07:30 07:30 Creatine Kinase 409 H CK-MB (CK-2) 6.60 H Troponin I 0.018 NT-Pro-B Natriuret Pep 1040 H Impressions: Chest X-Ray 08/07/18 13:30 IMPRESSION: NO ACUTE RADIOGRAPHIC FINDING IN THE CHEST. Foot X-Ray 08/07/18 13:30 IMPRESSION: NEGATIVE STUDY OF THE RIGHT FOOT. NO RADIOGRAPHIC EVIDENCE OF ACUTE INJURY. Assessment and Plan - Diagnosis (1) COPD (chronic obstructive pulmonary disease) Qualifiers: COPD type: COPD with acute exacerbation Qualified Code(s): J44.1 - Chronic obstructive pulmonary disease with (acute) exacerbation Is this a current diagnosis for this admission?: Yes Plan: 08/07/2018 patient is going to be admitted for COPD exacerbation to place him on oxygen 2 L nasal cannula, restart his albuterol inhaler and albuterol nebulizations. GI prophylaxis DVT prophylaxis initiated. To place him on nicotine patch. COPD most likely secondary to chronic smoking. pt is not on home oxygen. 08/08/2018-patient admitted with COPD exacerbation at the time of exam examination in the ER bilateral slight wheezing present decreased bilateral air entry today chest was clear. Pulse ox is 98% on 2 L. COPD most likely secondary to chronic smoking. Smoking counseling was provided. (2) Cellulitis of both feet Is this a current diagnosis for this admission?: Yes Plan: 08/07/2018-plan to do the blood cultures and to start him on levo floxacillin 500 mg IV daily. Patient is allergic to penicillins. 08/08/2018-blood cultures are so far negative. Presently on levofloxacin 500 mg IV daily. Still erythema and redness present in the both feet. (3) CHF (congestive heart failure) Is this a current diagnosis for this admission?: No Plan: 08/07/2018-patient is given history of congestive heart failure. Have the echocardiogram report to restart his Coreg he is not in any diuretics at this point as per the patient. Based on the history most likely has chronic systolic heart failure. 08/08/2018-patient is given the history of congestive heart failure based on history he might have chronic systolic heart failure. Not in fluid overload at this time. (4) HTN (hypertension) Is this a current diagnosis for this admission?: No Plan: 08/07/2018-patient blood pressure in the emergency room is 194/105. To start him on hydralazine 10 mg p.o. every 6 hours and restart Coreg 3.25 mg p.o. twice a day and to start him on Lasix 20 mg p.o. twice daily. To start him on low- sodium diet. 08/08/2018 blood pressure today is 132/48. Stable. He is on hydralazine 10 mg IV every 6 as needed and Coreg 3.25 mg p.o. twice a day, Lasix 20 mg p.o. twice a day his heart rate is 48 this morning plan is to hold Coreg for now. (5) Diabetes Is this a current diagnosis for this admission?: No Plan: 08/07/2018-patient given history of type 2 diabetes mellitus. To check his hemoglobin A1c he takes metformin at home. To hold metformin during the hospital stay and to place him on insulin sliding scale before meals and at bedtime. 08/08/2018 patient's hemoglobin A1c is 5.5 has history of type 2 diabetes mellitus on metformin at home. Presently Metformin is on hold he is on insulin sliding scale. Latest blood sugar is 154. (6) PVD (peripheral vascular disease) Is this a current diagnosis for this admission?: No (7) Tobacco use Is this a current diagnosis for this admission?: No - Time Time Spent with patient: 15-24 minutes Smoking Cessation Education: over 10 minutes Medications reviewed and adjusted accordingly: Yes Anticipated discharge: Other - Senior Living
[2018-08-08] MEDS: ACETAMINOPHEN 325 MG TABLET PO PRN (13:28)
[2018-08-08] MEDS: NALBUPHINE HCL INJ 10 MG/1 ML AMPULE IV PRN (21:13)
[2018-08-09] MEDS: IPRATROPIUM/ALBUTEROL 0.5-2.5 MG/3 ML AMPUL NEB SCH ×6 (03:51→23:50)
[2018-08-09 05:01] LABS: ABSOLUTE EOSINOPHILS # (AUTO) 0.1 10^3/uL (0.0-0.6); ABSOLUTE LYMPHOCYTES (AUTO) 1.5 10^3/uL (0.5-4.7); ABSOLUTE MONOCYTES (AUTO) 0.4 10^3/uL (0.1-1.4); ABSOLUTE NEUT (AUTO) 2.8 10^3/uL (1.7-8.2); BASOPHILS % (AUTO) 0.9 % (0-2); EOSINOPHILS % (AUTO) 1.3 % (0-6); HEMATOCRIT 38.1 % (37.9-51.0); LYMPHOCYTES % (AUTO) 30.2 % (13-45); MEAN CORPUSCULAR HEMOGLOBIN 32.4 pg (27.0-33.4); MEAN CORPUSCULAR HGB CONC 34.2 g/dL (32.0-36.0); MEAN CORPUSCULAR VOLUME 95 fl (80-97); MONOCYTES % (AUTO) 8.9 % (3-13); RED BLOOD COUNT 4.01 10^6/uL (4.35-5.55); RED CELL DISTRIBUTION WIDTH 13.3 % (11.5-14.0); SEGMENTED NEUTROPHILS % (AUTO) 58.7 % (42-78); TOTAL CELLS COUNTED % (AUTO) 100 %; WHITE BLOOD COUNT 4.8 10^3/uL (4.0-10.5)
[2018-08-09 05:19] LABS: PLATELET COUNT 95 10^3/uL (150-450)
[2018-08-09 05:23] LABS: ALANINE AMINOTRANSFERASE 32 U/L (21-72); ALBUMIN 3.2 g/dL (3.5-5.0); ALKALINE PHOSPHATASE 48 U/L (38-126); ANION GAP 8 (5-19); ASPARTATE AMINO TRANSFERASE 26 U/L (17-59); BILIRUBIN,DIRECT 0.2 mg/dL (0.0-0.4); BILIRUBIN,TOTAL 0.4 mg/dL (0.2-1.3); BLOOD UREA NITROGEN 18 mg/dL (7-20); CALCIUM 8.7 mg/dL (8.4-10.2); CARBON DIOXIDE 32 mmol/L (22-30); CHLORIDE 103 mmol/L (98-107); GLUCOSE 151 mg/dL (75-110); POTASSIUM 3.4 mmol/L (3.6-5.0); SODIUM 142.9 mmol/L (137-145)
[2018-08-09] MEDS: NALBUPHINE HCL INJ 10 MG/1 ML AMPULE IV PRN ×3 (05:43→20:33)
[2018-08-09] MEDS: GABAPENTIN 300 MG CAPSULE PO SCH ×3 (05:43→21:29)
[2018-08-09] MEDS: INSULIN REG, HUMAN 100 UNIT/ML 3 ML VIAL (PYX) SUBCUT SCH (10:02)
[2018-08-09] MEDS: ENOXAPARIN SODIUM INJ 40 MG/0.4 ML DISP.SYRIN SUBCUT SCH (10:03)
[2018-08-09] MEDS: NICOTINE 21 MG/24 HR PATCH.TD24 TD SCH (10:14)
[2018-08-09] MEDS: CLOPIDOGREL BISULFATE 75 MG TABLET PO SCH (10:15)
[2018-08-09] MEDS: FAMOTIDINE 20 MG TABLET PO SCH ×2 (10:15→21:29)
--- NOTE | 2018-08-09 10:37 | PDOC PROGRESS REPORT ---
Subjective Progress Note for:: 05/12/18 Subjective:: 68 year old male with a history of hypertension, diabetes mellitus, congestive heart failure, myocardial ischemia left lower leg stent placement, left carotid endarterectomy, COPD, emphysema came to the emergency room with complaints of redness of the both feet associated with swelling and pain for the last few days. He is homeless and walking in the [place]. He is also told the ER physician he has a problem with breathing and increasing wheezing with minimal activity. Medical consult was called for admission. Patient denies any history of fever complaining of nonspecific shortness of breath associated wheezing and dry cough denies any headache dizzy spells denies any nausea vomiting diarrhea denies any abdominal pains denies any symptoms complaining of redness swelling of the both feet associated with severe pain. 08/08/2018 no acute events in the last 24 hours. Patient is afebrile. Comfortably sleeping in the bed. 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 Probably we can discharge home tomorrow. Pains in the last 24 hours. Patient is afebrile. Complaining of bilateral leg swelling and complaining of bilateral lower leg pains as per the patient gabapentin is not helping him. Waiting for pen[facility]entiary placement. Reason For Visit: COPD EXACERBATION AND CELLULITIS BOTH FEET Physical Exam Vital Signs: Temp Pulse Resp BP Pulse Ox 97.2 F 72 19 144/51 H 99 08/09/18 07:00 08/09/18 07:00 08/09/18 07:00 08/09/18 07:00 08/09/18 07:00 Intake & Output 08/08/18 08/09/18 08/10/18 06:59 06:59 06:59 Intake Total 2100 Output Total 200 Balance 1900 Weight 125 kg 124.6 kg General appearance: PRESENT: no acute distress, obese Head exam: PRESENT: atraumatic Eye exam: PRESENT: PERRLA Neck exam: ABSENT: carotid bruit, JVD, lymphadenopathy, thyromegaly Respiratory exam: PRESENT: decreased breath sounds Cardiovascular exam: PRESENT: RRR. ABSENT: diastolic murmur, rubs, systolic murmur GI/Abdominal exam: PRESENT: normal bowel sounds, soft. ABSENT: distended, guarding, mass, organolmegaly, rebound, tenderness Rectal exam: PRESENT: deferred Extremities exam: PRESENT: full ROM. ABSENT: calf tenderness, clubbing, pedal edema Neurological exam: PRESENT: alert, awake, oriented to person, oriented to place, oriented to time, oriented to situation, CN II-XII grossly intact. ABSENT: motor sensory deficit Psychiatric exam: PRESENT: appropriate affect, normal mood. ABSENT: homicidal ideation, suicidal ideation Results Laboratory Results: 08/09/18 04:03 08/09/18 04:03 08/09/18 08/09/18 04:03 04:03 WBC 4.8 RBC 4.01 L Hgb 13.0 L Hct 38.1 MCV 95 MCH 32.4 MCHC 34.2 RDW 13.3 Plt Count 95 L Seg Neutrophils % 58.7 Lymphocytes % 30.2 Monocytes % 8.9 Eosinophils % 1.3 Basophils % 0.9 Absolute Neutrophils 2.8 Absolute Lymphocytes 1.5 Absolute Monocytes 0.4 Absolute Eosinophils 0.1 Absolute Basophils 0.0 Sodium 142.9 Potassium 3.4 L Chloride 103 Carbon Dioxide 32 H Anion Gap 8 BUN 18 Creatinine 0.80 Est GFR ( Amer) > 60 Est GFR (Non-Af Amer) > 60 Glucose 151 H Calcium 8.7 Magnesium 2.1 Total Bilirubin 0.4 AST 26 ALT 32 Alkaline Phosphatase 48 Total Protein 6.0 L Albumin 3.2 L 08/07/18 08/07/18 08/07/18 13:30 13:30 20:00 Creatine Kinase 310 H 250 H CK-MB (CK-2) Troponin I 0.015 NT-Pro-B Natriuret Pep 425 08/07/18 08/08/18 08/08/18 20:00 01:40 01:40 Creatine Kinase 295 H CK-MB (CK-2) 3.77 4.91 H Troponin I 0.014 0.012 NT-Pro-B Natriuret Pep 08/08/18 08/08/18 07:30 07:30 Creatine Kinase 409 H CK-MB (CK-2) 6.60 H Troponin I 0.018 NT-Pro-B Natriuret Pep 1040 H Impressions: Chest X-Ray 08/07/18 13:30 IMPRESSION: NO ACUTE RADIOGRAPHIC FINDING IN THE CHEST. Foot X-Ray 08/07/18 13:30 IMPRESSION: NEGATIVE STUDY OF THE RIGHT FOOT. NO RADIOGRAPHIC EVIDENCE OF ACUTE INJURY. Assessment and Plan - Diagnosis (1) COPD (chronic obstructive pulmonary disease) Qualifiers: COPD type: COPD with acute exacerbation Qualified Code(s): J44.1 - Chronic obstructive pulmonary disease with (acute) exacerbation Is this a current diagnosis for this admission?: Yes Plan: 08/07/2018 patient is going to be admitted for COPD exacerbation to place him on oxygen 2 L nasal cannula, restart his albuterol inhaler and albuterol nebulizations. GI prophylaxis DVT prophylaxis initiated. To place him on nicotine patch. COPD most likely secondary to chronic smoking. pt is not on home oxygen. 08/08/2018-patient admitted with COPD exacerbation at the time of exam examination in the ER bilateral slight wheezing present decreased bilateral air entry today chest was clear. Pulse ox is 98% on 2 L. COPD most likely secondary to chronic smoking. Smoking counseling was provided. 08/[id number]-old male admitted for COPD exacerbation pulse ox today is 99% on room air. COPD exacerbation is resolving. On examination chest bilateral toes decreased no wheezing no crepitations present. Smoking counseling was provided. (2) Cellulitis of both feet Is this a current diagnosis for this admission?: Yes Plan: 08/07/2018-plan to do the blood cultures and to start him on levo floxacillin 500 mg IV daily. Patient is allergic to penicillins. 08/08/2018-blood cultures are so far negative. Presently on levofloxacin 500 mg IV daily. Still erythema and redness present in the both feet. 08/09/2018-patient came in with erythema redness of the lower extremities most likely secondary to chronic dermatitis. He was started on IV levo floxacillin, blood cultures are negative so far. Afebrile. WBC count is 4800. Plan is to continue the present management. (3) CHF (congestive heart failure) Is this a current diagnosis for this admission?: No Plan: 08/07/2018-patient is given history of congestive heart failure. Have the echocardiogram report to restart his Coreg he is not in any diuretics at this point as per the patient. Based on the history most likely has chronic systolic heart failure. 08/08/2018-patient is given the history of congestive heart failure based on history he might have chronic systolic heart failure. Not in fluid overload at this time. 08/09/2018-to place the patient on fluid restriction at 1500 cc/day and start on Lasix 40 mg p.o. daily for bilateral lower leg swelling. (4) HTN (hypertension) Is this a current diagnosis for this admission?: No Plan: 08/07/2018-patient blood pressure in the emergency room is 194/105. To start him on hydralazine 10 mg p.o. every 6 hours and restart Coreg 3.25 mg p.o. twice a day and to start him on Lasix 20 mg p.o. twice daily. To start him on low- sodium diet. 08/08/2018 blood pressure today is 132/48. Stable. He is on hydralazine 10 mg IV every 6 as needed and Coreg 3.25 mg p.o. twice a day, Lasix 20 mg p.o. twice a day his heart rate is 48 this morning plan is to hold Coreg for now. IV 2018-patient blood pressure today is 143/56 stable. Plan is to continue the present management. Coreg is on hold because of the bradycardia heart rate today 76. (5) Diabetes Is this a current diagnosis for this admission?: No Plan: 08/07/2018-patient given history of type 2 diabetes mellitus. To check his hemoglobin A1c he takes metformin at home. To hold metformin during the hospital stay and to place him on insulin sliding scale before meals and at bed time. 08/08/2018 patient's hemoglobin A1c is 5.5 has history of type 2 diabetes mellitus on metformin at home. Presently Metformin is on hold he is on insulin sliding scale. Latest blood sugar is 154. 08/09/2018-hemoglobin A1c is 5.5. He is on metformin at home which was on hold. Blood sugar today is 151. Stable. (6) PVD (peripheral vascular disease) Is this a current diagnosis for this admission?: No (7) Tobacco use Is this a current diagnosis for this admission?: No - Time Time Spent with patient: 15-24 minutes Smoking Cessation Education: over 10 minutes Anticipated discharge: Home
[2018-08-09] MEDS: FUROSEMIDE 40 MG TABLET PO SCH (14:00)
[2018-08-10] MEDS: NALBUPHINE HCL INJ 10 MG/1 ML AMPULE IV PRN ×2 (00:14→04:01)
[2018-08-10] MEDS: IPRATROPIUM/ALBUTEROL 0.5-2.5 MG/3 ML AMPUL NEB SCH ×5 (03:41→19:47)
[2018-08-10] MEDS: GABAPENTIN 300 MG CAPSULE PO SCH ×3 (06:18→23:05)
[2018-08-10 09:30] LABS: ABSOLUTE EOSINOPHILS # (AUTO) 0.2 10^3/uL (0.0-0.6); ABSOLUTE LYMPHOCYTES (AUTO) 1.1 10^3/uL (0.5-4.7); ABSOLUTE MONOCYTES (AUTO) 0.7 10^3/uL (0.1-1.4); ABSOLUTE NEUT (AUTO) 3.3 10^3/uL (1.7-8.2); BASOPHILS % (AUTO) 0.9 % (0-2); EOSINOPHILS % (AUTO) 3.3 % (0-6); HEMATOCRIT 38.7 % (37.9-51.0); HEMOGLOBIN 13.2 g/dL (13.5-17.0); LYMPHOCYTES % (AUTO) 20.4 % (13-45); MEAN CORPUSCULAR HEMOGLOBIN 32.2 pg (27.0-33.4); MEAN CORPUSCULAR VOLUME 95 fl (80-97); MONOCYTES % (AUTO) 13.3 % (3-13); RED BLOOD COUNT 4.09 10^6/uL (4.35-5.55); SEGMENTED NEUTROPHILS % (AUTO) 62.1 % (42-78); TOTAL CELLS COUNTED % (AUTO) 100 %; WHITE BLOOD COUNT 5.3 10^3/uL (4.0-10.5)
[2018-08-10 09:34] LABS: ALANINE AMINOTRANSFERASE 43 U/L (21-72); ALBUMIN 3.2 g/dL (3.5-5.0); ALKALINE PHOSPHATASE 47 U/L (38-126); ANION GAP 7 (5-19); ASPARTATE AMINO TRANSFERASE 37 U/L (17-59); BILIRUBIN,DIRECT 0.3 mg/dL (0.0-0.4); BILIRUBIN,TOTAL 0.8 mg/dL (0.2-1.3); BLOOD UREA NITROGEN 16 mg/dL (7-20); CALCIUM 8.1 mg/dL (8.4-10.2); CARBON DIOXIDE 38 mmol/L (22-30); CHLORIDE 93 mmol/L (98-107); GLUCOSE 166 mg/dL (75-110); POTASSIUM 4.1 mmol/L (3.6-5.0); TOTAL PROTEIN 5.8 g/dL (6.3-8.2)
[2018-08-10 09:57] LABS: PLATELET COUNT 91 10^3/uL (150-450)
[2018-08-10] MEDS: NICOTINE 21 MG/24 HR PATCH.TD24 TD SCH (10:43)
[2018-08-10] MEDS: OXYCODONE-ACETAMINOPHEN 5-325 MG TABLET PO PRN ×2 (10:44→18:08)
[2018-08-10] MEDS: FAMOTIDINE 20 MG TABLET PO SCH ×2 (10:45→23:04)
[2018-08-10] MEDS: FUROSEMIDE 40 MG TABLET PO SCH (10:45)
[2018-08-10] MEDS: CLOPIDOGREL BISULFATE 75 MG TABLET PO SCH (10:45)
[2018-08-10] MEDS: ENOXAPARIN SODIUM INJ 40 MG/0.4 ML DISP.SYRIN SUBCUT SCH (10:46)
--- NOTE | 2018-08-10 11:54 | PDOC PROGRESS REPORT ---
Subjective Progress Note for:: 08/10/18 Subjective:: 68 year old male with a history of hypertension, diabetes mellitus, congestive heart failure, myocardial ischemia left lower leg stent placement, left carotid endarterectomy, COPD, emphysema came to the emergency room with complaints of redness of the both feet associated with swelling and pain for the last few days. He is homeless and walking in the [place]. He is also told the ER physician he has a problem with breathing and increasing wheezing with minimal activity. Medical consult was called for admission. Patient denies any history of fever complaining of nonspecific shortness of breath associated wheezing and dry cough denies any headache dizzy spells denies any nausea vomiting diarrhea denies any abdominal pains denies any symptoms complaining of redness swelling of the both feet associated with severe pain. 08/08/2018 no acute events in the last 24 hours. Patient is afebrile. Comfortably sleeping in the bed. 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 Probably we can discharge home tomorrow. 08/09/2018-no acute events the last 24 hours. Patient is afebrile. Complaining of bilateral leg swelling and complaining of bilateral lower leg pains as per the patient gabapentin is not helping him. Waiting for fpc placement. 08/10/2018-continue to complaining of left lower leg swelling and pains. Presently on Lasix 40 mg daily getting Percocet every 6 as needed and is also on gabapentin. Peripheral vascular disease. Plan to do the CT of the lower extremities. Reason For Visit: COPD EXACERBATION AND CELLULITIS BOTH FEET Physical Exam Vital Signs: Temp Pulse Resp BP Pulse Ox 98.3 F 82 18 155/47 H 93 08/10/18 07:39 08/10/18 07:40 08/10/18 07:40 08/10/18 07:39 08/10/18 07:40 Intake & Output 08/09/18 08/10/18 08/11/18 06:59 06:59 06:59 Intake Total 2099 1917 Output Total 200 3800 Balance 1900 -1882 Weight 124.6 kg 123.9 kg General appearance: PRESENT: obese Head exam: PRESENT: atraumatic Eye exam: PRESENT: PERRLA Ear exam: PRESENT: normal external ear exam Mouth exam: PRESENT: moist, tongue midline Neck exam: ABSENT: carotid bruit, JVD, lymphadenopathy, thyromegaly Respiratory exam: PRESENT: decreased breath sounds Cardiovascular exam: PRESENT: RRR. ABSENT: diastolic murmur, rubs, systolic murmur GI/Abdominal exam: PRESENT: normal bowel sounds, soft. ABSENT: distended, guarding, mass, organolmegaly, rebound, tenderness Rectal exam: PRESENT: deferred Extremities exam: PRESENT: +1 edema Neurological exam: PRESENT: alert, awake, oriented to person, oriented to place, oriented to time, oriented to situation, CN II-XII grossly intact. ABSENT: motor sensory deficit Psychiatric exam: PRESENT: appropriate affect, normal mood. ABSENT: homicidal ideation, suicidal ideation Results Laboratory Results: 08/10/18 09:04 08/10/18 09:04 08/10/18 08/10/18 09:04 09:04 WBC 5.3 RBC 4.09 L Hgb 13.2 L Hct 38.7 MCV 95 MCH 32.2 MCHC 34.0 RDW 13.0 Plt Count 91 L Seg Neutrophils % 62.1 Lymphocytes % 20.4 Monocytes % 13.3 H Eosinophils % 3.3 Basophils % 0.9 Absolute Neutrophils 3.3 Absolute Lymphocytes 1.1 Absolute Monocytes 0.7 Absolute Eosinophils 0.2 Absolute Basophils 0.0 Sodium 138.0 Potassium 4.1 Chloride 93 L Carbon Dioxide 38 H Anion Gap 7 BUN 16 Creatinine 0.68 Est GFR ( Amer) > 60 Est GFR (Non-Af Amer) > 60 Glucose 166 H Calcium 8.1 L Magnesium 1.8 Total Bilirubin 0.8 AST 37 ALT 43 Alkaline Phosphatase 47 Total Protein 5.8 L Albumin 3.2 L 08/07/18 08/07/18 08/07/18 13:30 13:30 20:00 Creatine Kinase 310 H 250 H CK-MB (CK-2) Troponin I 0.015 NT-Pro-B Natriuret Pep 425 08/07/18 08/08/18 08/08/18 20:00 01:40 01:40 Creatine Kinase 295 H CK-MB (CK-2) 3.77 4.91 H Troponin I 0.014 0.012 NT-Pro-B Natriuret Pep 08/08/18 08/08/18 07:30 07:30 Creatine Kinase 409 H CK-MB (CK-2) 6.60 H Troponin I 0.018 NT-Pro-B Natriuret Pep 1040 H Impressions: Chest X-Ray 08/07/18 13:30 IMPRESSION: NO ACUTE RADIOGRAPHIC FINDING IN THE CHEST. Foot X-Ray 08/07/18 13:30 IMPRESSION: NEGATIVE STUDY OF THE RIGHT FOOT. NO RADIOGRAPHIC EVIDENCE OF ACUTE INJURY. Assessment and Plan - Diagnosis (1) COPD (chronic obstructive pulmonary disease) Qualifiers: COPD type: COPD with acute exacerbation Qualified Code(s): J44.1 - Chronic obstructive pulmonary disease with (acute) exacerbation Is this a current diagnosis for this admission?: Yes Plan: 08/07/2018 patient is going to be admitted for COPD exacerbation to place him on oxygen 2 L nasal cannula, restart his albuterol inhaler and albuterol nebulizations. GI prophylaxis DVT prophylaxis initiated. To place him on nicotine patch. COPD most likely secondary to chronic smoking. pt is not on home oxygen. 08/08/2018-patient admitted with COPD exacerbation at the time of exam examination in the ER bilateral slight wheezing present decreased bilateral air entry today chest was clear. Pulse ox is 98% on 2 L. COPD most likely secondary to chronic smoking. Smoking counseling was provided. 08/[id number]-old male admitted for COPD exacerbation pulse ox today is 99% on room air. COPD exacerbation is resolving. On examination chest bilateral toes decreased no wheezing no crepitations present. Smoking counseling was provided. 08/10/2018-patient admitted with COPD exacerbation and which was resolved pulse ox today is 84% on room air. (2) Cellulitis of both feet Is this a current diagnosis for this admission?: Yes Plan: 08/07/2018-plan to do the blood cultures and to start him on levo floxacillin 500 mg IV daily. Patient is allergic to penicillins. 08/08/2018-blood cultures are so far negative. Presently on levofloxacin 500 mg IV daily. Still erythema and redness present in the both feet. 08/09/2018-patient came in with erythema redness of the lower extremities most likely secondary to chronic dermatitis. He was started on IV levo floxacillin, blood cultures are negative so far. Afebrile. WBC count is 4800. Plan is to continue the present management. 08/10/2018-patient came with erythema redness of the lower extremities afebrile. May be secondary to chronic skin changes. Complaining of pains especially on walking. Is also complaining of resting pain. To do the CT of the lower extremities. (3) CHF (congestive heart failure) Is this a current diagnosis for this admission?: No Plan: 08/07/2018-patient is given history of congestive heart failure. Have the echocardiogram report to restart his Coreg he is not in any diuretics at this point as per the patient. Based on the history most likely has chronic systolic heart failure. 08/08/2018-patient is given the history of congestive heart failure based on history he might have chronic systolic heart failure. Not in fluid overload at this time. 08/09/2018-to place the patient on fluid restriction at 1500 cc/day and start on Lasix 40 mg p.o. daily for bilateral lower leg swelling. 08/10/2018-patient is on fluid restriction and also on Lasix 40 mg p.o. daily still have 1+ pedal edema. Urinary output is good. Based on the history patient might have a chronic systolic hypertension. Urinary output in the last 24 hours is 3.8 L. (4) HTN (hypertension) Is this a current diagnosis for this admission?: No Plan: 08/07/2018-patient blood pressure in the emergency room is 194/105. To start him on hydralazine 10 mg p.o. every 6 hours and restart Coreg 3.25 mg p.o. twice a day and to start him on Lasix 20 mg p.o. twice daily. To start him on low- sodium diet. 08/08/2018 blood pressure today is 132/48. Stable. He is on hydralazine 10 mg IV every 6 as needed and Coreg 3.25 mg p.o. twice a day, Lasix 20 mg p.o. twice a day his heart rate is 48 this morning plan is to hold Coreg for now. 08/09/2018-patient blood pressure today is 143/56 stable. Plan is to continue the present management. Coreg is on hold because of the bradycardia heart rate today 76. 08/10/2018 blood pressure is 155/87. Stable. Plan is to continue the present management heart rate is improved to 82 to restart on Coreg. (5) Diabetes Is this a current diagnosis for this admission?: No (6) PVD (peripheral vascular disease) Is this a current diagnosis for this admission?: No (7) Tobacco use Is this a current diagnosis for this admission?: No - Time Time Spent with patient: 15-24 minutes Medications reviewed and adjusted accordingly: Yes Anticipated discharge: Home
--- NOTE | 2018-08-10 14:22 | RADIOLOGY REPORT (SQ) ---
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 TECHNIQUE: CT scan of the pelvis and lower extremities performed with and without intravenous contra st using helical scanning technique with dynamic intravenous contrast injection. Images reviewed with lung, soft tissue, and bone windows. Reconstructed coronal and sagittal MPR images reviewed. All alanna ges stored on PACS. Advanced 3D imaging as volume-rendering, MIPs, SSD performed? yes All CT scanners at this facility use dose modulation, iterative reconstruction, and/or weight based d osing when appropriate to reduce radiation dose to as low as reasonably achievable (ALARA). [facility]: Dose Right [facility]: CareDose [facility]: Dose Right [facility]: Teradose 4D [facility]: Space Race CONTRAST TYPE AND DOSE: contrast/concentration: Isovue 350.00 mg/ml; Total Contrast Delivered: 74.0 ml; Total Saline Delivered: 80.0 ml RENAL FUNCTION: BUN 16 creatinine 0.68. LIMITATIONS: There is insufficient contrast in the vessels. FINDINGS: PELVIS: Scattered calcifications in the iliac vessels. Visualize loops of bowel in the lower abdomen and pel vis are normal caliber. Soft tissues unremarkable. Bony structures intact. LOWER EXTREMITIES: Scattered calcifications in the vessels of the lower extremities. Stent in the left common femoral a rtery. Musculature, soft tissues, and bony structures unremarkable. IMPRESSION: NONDIAGNOSTIC STUDY. THERE IS INSUFFICIENT CONTRAST IN THE VESSELS. RATHER THAN GIVE T HE PATIENT ADDITIONAL CONTRAST AT THIS TIME, MAY CONSIDER NONINVASIVE EVALUATION WITH ARTERIAL DOPPLE R AND ANKLE-BRACHIAL INDICES. IF THERE ARE SIGNIFICANT ABNORMAL FINDINGS ON NONINVASIVE IMAGING AND/ OR IF INTERVENTION IS PLANNED, THEN MAY REPEAT THE CTA AND RUNOFF STUDY. TECHNICAL DOCUMENTATION: JOB ID: [id number] Quality ID # [id number]: Final reports with documentation of one or more dose reduction techniques (e.g., Au tomated exposure control, adjustment of the mA and/or kV according to patient size, use of iterative reconstruction technique) 2010 [employer]- All Rights Reserved Reading location - IP/workstation name: [email or web address] [id number]
[2018-08-10] MEDS ORDERED: CARVEDILOL 3.125 MG TABLET PO SCH (22:00)
[2018-08-11] MEDS: IPRATROPIUM/ALBUTEROL 0.5-2.5 MG/3 ML AMPUL NEB SCH ×7 (00:02→23:45)
[2018-08-11] MEDS: OXYCODONE-ACETAMINOPHEN 5-325 MG TABLET PO PRN ×3 (01:15→19:21)
[2018-08-11] MEDS: GABAPENTIN 300 MG CAPSULE PO SCH ×3 (05:34→21:58)
--- NOTE | 2018-08-11 10:13 | PDOC PROGRESS REPORT ---
Subjective Progress Note for:: 08/11/18 Subjective:: 68 year old male with a history of hypertension, diabetes mellitus, congestive heart failure, myocardial ischemia left lower leg stent placement, left carotid endarterectomy, COPD, emphysema came to the emergency room with complaints of redness of the both feet associated with swelling and pain for the last few days. He is homeless and walking in the [place]. He is also told the ER physician he has a problem with breathing and increasing wheezing with minimal activity. Medical consult was called for admission. Patient denies any history of fever complaining of nonspecific shortness of breath associated wheezing and dry cough denies any headache dizzy spells denies any nausea vomiting diarrhea denies any abdominal pains denies any symptoms complaining of redness swelling of the both feet associated with severe pain. 08/08/2018 no acute events in the last 24 hours. Patient is afebrile. Comfortably sleeping in the bed. 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 Probably we can discharge home tomorrow. 08/09/2018-no acute events the last 24 hours. Patient is afebrile. Complaining of bilateral leg swelling and complaining of bilateral lower leg pains as per the patient gabapentin is not helping him. Waiting for [facility]iary placement. 08/10/2018-continue to complaining of left lower leg swelling and pains. Presently on Lasix 40 mg daily getting Percocet every 6 as needed and is also on gabapentin. Peripheral vascular disease. Plan to do the CT of the lower extremities. 08/11/[id number]-obuw-old male admitted with right lower leg redness and erythema, COPD exacerbation COPD exacerbation is resolved. Patient has a severe peripheral vascular disease try to do the CT of the lower extremities unable to dose yesterday today is getting arterial Doppler. Physical therapy was consulted because patient is complaining of pain on walking and is also complaining of difficulty in ambulation. No acute events in the last 24 hours. Patient is afebrile. Reason For Visit: COPD EXACERBATION AND CELLULITIS BOTH FEET Physical Exam Vital Signs: Temp Pulse Resp BP Pulse Ox 97.7 F 71 15 151/53 H 95 08/11/18 03:44 08/11/18 08:25 08/11/18 08:25 08/11/18 03:44 08/11/18 08:25 Intake & Output 08/10/18 08/11/18 08/12/18 06:59 06:59 06:59 Intake Total 1918 1430 Output Total 6980 2550 Balance -1882 -1120 Weight 123.9 kg 124.3 kg General appearance: PRESENT: no acute distress, obese Head exam: PRESENT: atraumatic Eye exam: PRESENT: PERRLA Mouth exam: PRESENT: moist, tongue midline Teeth exam: PRESENT: poor dentation Neck exam: ABSENT: carotid bruit, JVD, lymphadenopathy, thyromegaly Respiratory exam: PRESENT: decreased breath sounds Cardiovascular exam: PRESENT: RRR. ABSENT: diastolic murmur, rubs, systolic m urmur GI/Abdominal exam: PRESENT: normal bowel sounds, soft. ABSENT: distended, guarding, mass, organolmegaly, rebound, tenderness Rectal exam: PRESENT: deferred Extremities exam: PRESENT: +1 edema, other - Pedal edema is improving and patient has chronic skin changes most likely secondary to chronic dermatitis due to poor circulation. Neurological exam: PRESENT: alert, awake, oriented to person, oriented to place, oriented to time, oriented to situation, CN II-XII grossly intact. ABSENT: cam r sensory deficit Psychiatric exam: PRESENT: appropriate affect, normal mood. ABSENT: homicidal ideation, suicidal ideation Results Laboratory Results: 08/10/18 09:04 08/10/18 09:04 08/07/18 08/07/18 08/07/18 13:30 13:30 20:00 Creatine Kinase 310 H 250 H CK-MB (CK-2) Troponin I 0.015 NT-Pro-B Natriuret Pep 425 08/07/18 08/08/18 08/08/18 20:00 01:40 01:40 Creatine Kinase 295 H CK-MB (CK-2) 3.77 4.91 H Troponin I 0.014 0.012 NT-Pro-B Natriuret Pep 08/08/18 08/08/18 07:30 07:30 Creatine Kinase 409 H CK-MB (CK-2) 6.60 H Troponin I 0.018 NT-Pro-B Natriuret Pep 1040 H Impressions: Chest X-Ray 08/07/18 13:30 IMPRESSION: NO ACUTE RADIOGRAPHIC FINDING IN THE CHEST. Foot X-Ray 08/07/18 13:30 IMPRESSION: NEGATIVE STUDY OF THE RIGHT FOOT. NO RADIOGRAPHIC EVIDENCE OF ACUTE INJURY. Aorta w/Runoff CTA 08/10/18 00:00 IMPRESSION: NONDIAGNOSTIC STUDY. THERE IS INSUFFICIENT CONTRAST IN THE VESSELS. RATHER THAN GIVE THE PATIENT ADDITIONAL CONTRAST AT THIS TIME, MAY C ONSIDER NONINVASIVE EVALUATION WITH ARTERIAL DOPPLER AND ANKLE-BRACHIAL INDICES. IF THERE ARE SIGNIFICANT ABNORMAL FINDINGS ON NONINVASIVE IMAGING AND/OR IF INTERVENTION IS PLANNED, THEN MAY REPEAT THE CTA AND RUNOFF STUDY. Assessment and Plan - Diagnosis (1) COPD (chronic obstructive pulmonary disease) Qualifiers: COPD type: COPD with acute exacerbation Qualified Code(s): J44.1 - Chronic obstructive pulmonary disease with (acute) exacerbation Is this a current diagnosis for this admission?: Yes Plan: 08/07/2018 patient is going to be admitted for COPD exacerbation to place him on oxygen 2 L nasal cannula, restart his albuterol inhaler and albuterol nebulizations. GI prophylaxis DVT prophylaxis initiated. To place him on nicotine patch. COPD most likely secondary to chronic smoking. pt is not on home oxygen. 08/08/2018-patient admitted with COPD exacerbation at the time of exam examination in the ER bilateral slight wheezing present decreased bilateral air entry today chest was clear. Pulse ox is 98% on 2 L. COPD most likely secondary to chronic smoking. Smoking counseling was provided. 08/09/[id number]-pcsu-old male admitted for COPD exacerbation pulse ox today is 99% on room air. COPD exacerbation is resolving. On examination chest bilateral toes decreased no wheezing no crepitations present. Smoking counseling was provided. 08/10/2018-patient admitted with COPD exacerbation and which was resolved pulse ox today is 84% on room air. 08/11/2018-patient pulse ox today is 94% room air. COPD exacerbation most likely secondary to smoking resolved. (2) Cellulitis of both feet Is this a current diagnosis for this admission?: Yes Plan: 08/07/2018-plan to do the blood cultures and to start him on levo floxacillin 500 mg IV daily. Patient is allergic to penicillins. 08/08/2018-blood cultures are so far negative. Presently on levofloxacin 500 mg IV daily. Still erythema and redness present in the both feet. 08/09/2018-patient came in with erythema redness of the lower extremities most likely secondary to chronic dermatitis. He was started on IV levo floxacillin, blood cultures are negative so far. Afebrile. WBC count is 4800. Plan is to continue the present management. 08/10/2018-patient came with erythema redness of the lower extremities afebrile. May be secondary to chronic skin changes. Complaining of pains especially on walking. Is also complaining of resting pain. To do the CT of the lower extremities. -as mentioned above patient came in with erythema, redness of the lower extremities. Most likely chronic skin changes due to poor circulation. PT consult was requested. With getting arterial Doppler today to Check the vascular status. (3) CHF (congestive heart failure) Is this a current diagnosis for this admission?: No Plan: 08/07/2018-patient is given history of congestive heart failure. Have the echocardiogram report to restart his Coreg he is not in any diuretics at this point as per the patient. Based on the history most likely has chronic systolic heart failure. 08/08/2018-patient is given the history of congestive heart failure based on history he might have chronic systolic heart failure. Not in fluid overload at this time. 08/09/2018-to place the patient on fluid restriction at 1500 cc/day and start on Lasix 40 mg p.o. daily for bilateral lower leg swelling. 08/10/2018-patient is on fluid restriction and also on Lasix 40 mg p.o. daily still have 1+ pedal edema. Urinary output is good. Based on the history patient might have a chronic systolic hypertension. Urinary output in the last 24 hours is 3.8 L. 08/11/2018-patient has history of congestive heart failure most likely chronic systolic. Presently on Lasix 40 mg p.o. daily and his pedal edema is improving. (4) HTN (hypertension) Is this a current diagnosis for this admission?: No Plan: 08/07/2018-patient blood pressure in the emergency room is 194/105. To start him on hydralazine 10 mg p.o. every 6 hours and restart Coreg 3.25 mg p.o. twice a day and to start him on Lasix 20 mg p.o. twice daily. To start him on low- sodium diet. 08/08/2018 blood pressure today is 132/48. Stable. He is on hydralazine 10 mg IV every 6 as needed and Coreg 3.25 mg p.o. twice a day, Lasix 20 mg p.o. twice a day his heart rate is 48 this morning plan is to hold Coreg for now. 08/09/2018-patient blood pressure today is 143/56 stable. Plan is to continue the present management. Coreg is on hold because of the bradycardia heart rate today 76. 08/10/2018 blood pressure is 155/87. Stable. Plan is to continue the present management heart rate is improved to 82 to restart on Coreg. 08/11/2018-patient blood pressure today is 151/53 on hydralazine 10 mg IV every 6 as needed, Lasix 20 mg p.o. daily. His heart rate this morning is 65. Plan to do the EKG twelve-lead EKG because there is concern about pauses in the EKG. Plan to hold Coreg for now. (5) Diabetes Is this a current diagnosis for this admission?: No Plan: 08/07/2018-patient given history of type 2 diabetes mellitus. To check his hemog lobin A1c he takes metformin at home. To hold metformin during the hospital stay and to place him on insulin sliding scale before meals and at bedtime. 08/08/2018 patient's hemoglobin A1c is 5.5 has history of type 2 diabetes mellitus on metformin at home. Presently Metformin is on hold he is on insulin sliding scale. Latest blood sugar is 154. 08/09/2018-hemoglobin A1c is 5.5. He is on metformin at home which was on hold. Blood sugar today is 151. Stable. 08/11/2018-patient's latest blood sugar is 152. Stable. (6) PVD (peripheral vascular disease) Is this a current diagnosis for this admission?: No Plan: 08/07/2018-patient given history of peripheral vascular disease he has left lower extremity stent was placed 8 years ago. He is on Plavix. Is also taking aspirin at home. Plan to resume those medications. 08/11/2018-patient has a history of peripheral vascular disease according to him he has a stent placement before. CT of the lower extremity was requested but unable to dose yesterday. Plan to do the arterial Doppler this morning. Patient is complaining of excruciating pain on walking. Physical therapy consult was requested. (7) Tobacco use Is this a current diagnosis for this admission?: No - Time Time Spent with patient: 15-24 minutes Smoking Cessation Education: over 10 minutes Medications reviewed and adjusted accordingly: Yes Anticipated discharge: Home
[2018-08-11] MEDS: ENOXAPARIN SODIUM INJ 40 MG/0.4 ML DISP.SYRIN SUBCUT SCH (10:23)
[2018-08-11] MEDS: NICOTINE 21 MG/24 HR PATCH.TD24 TD SCH (10:42)
[2018-08-11] MEDS: CLOPIDOGREL BISULFATE 75 MG TABLET PO SCH (10:42)
[2018-08-11] MEDS: FAMOTIDINE 20 MG TABLET PO SCH ×2 (10:42→21:58)
[2018-08-11] MEDS: FUROSEMIDE 40 MG TABLET PO SCH (10:43)
--- NOTE | 2018-08-11 14:12 | RADIOLOGY REPORT (SQ) ---
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 TECHNIQUE: Dynamic and static elena scale and color images acquired of the lower extremity arteries. Additional selected spectral images recorded. ABIs recorded. LIMITATIONS: None. FINDINGS: RIGHT LEG: ABIS: Not obtained. INFLOW ARTERIES: Not imaged. FEMORAL ARTERIES:Multiphasic waveforms. Elevated flow velocity with spectral broadening in the proxim al femoral artery 5.9 m/sec. Similar stenosis in the profunda femoral artery. POPLITEAL ARTERY:Poststenotic waveforms. No focal stenosis. PATENT TIBIOPERONEAL TRUNK AND 3 VESSEL RUNOFF: Posterior tibial is occluded. TBI: Not performed. OTHER: No other significant finding. LEFT LEG: ABIS: Not obtained. INFLOW ARTERIES: Not imaged. FEMORAL ARTERIES:Multiphasic waveforms. Occluded femoral artery stent. Reconstituted flow distal fem oral artery. POPLITEAL ARTERY:Mostly monophasic with spectral broadening. Elevated velocity 2.9 m/sec. PATENT TIBIOPERONEAL TRUNK AND 3 VESSEL RUNOFF: Retrograde flow anterior tibial and dorsalis pedis. Antegrade monophasic flow posterior tibial and peroneal arteries. TBI: Not performed. OTHER: No other significant finding. IMPRESSION: Right: High-grade stenosis proximal femoral artery. Occluded posterior tibial artery. Left: Occluded femoral artery stent. Reconstituted flow with estimated 50% stenosis in the poplitea l artery. Retrograde flow below the knee. COMMENT: [facility] NORMAL: Greater than 1.0 MINIMAL DISEASE: 0.9 to 1.0 CLAUDICATION: 0.5 to 0.9 SEVERE ARTERIAL DISEASE: Less than 0.5 [facility] NORMAL: Greater than 1.0 (1.2 If Heavy Calcifications) NORMAL TO MILD ISCHEMIA: 0.8 to 1.0 MODERATE ISCHEMIA: 0.4 to 0.8 SEVERE ISCHEMIA: Less than 0.4 TECHNICAL DOCUMENTATION: JOB ID: [id number]- All Rights Reserved Reading location - IP/workstation name: [email or web address]
[2018-08-12] MEDS: IPRATROPIUM/ALBUTEROL 0.5-2.5 MG/3 ML AMPUL NEB SCH ×6 (03:54→23:25)
[2018-08-12] MEDS: OXYCODONE-ACETAMINOPHEN 5-325 MG TABLET PO PRN ×3 (06:22→18:51)
[2018-08-12] MEDS: GABAPENTIN 300 MG CAPSULE PO SCH ×3 (06:22→22:43)
[2018-08-12] MEDS: ENOXAPARIN SODIUM INJ 40 MG/0.4 ML DISP.SYRIN SUBCUT SCH (09:26)
[2018-08-12] MEDS: NICOTINE 21 MG/24 HR PATCH.TD24 TD SCH (09:29)
[2018-08-12] MEDS: CLOPIDOGREL BISULFATE 75 MG TABLET PO SCH (09:30)
[2018-08-12] MEDS: FUROSEMIDE 40 MG TABLET PO SCH (09:30)
[2018-08-12] MEDS: FAMOTIDINE 20 MG TABLET PO SCH ×2 (09:30→22:43)
[2018-08-12] MEDS: ACETAMINOPHEN 325 MG TABLET PO PRN (09:30)
--- NOTE | 2018-08-12 19:13 | PDOC PROGRESS REPORT ---
Subjective Progress Note for:: 08/12/18 Subjective:: This is a 68 year old male with a history of hypertension, diabetes mellitus, congestive heart failure, myocardial ischemia, PVD with prior left lower leg stent placement, left carotid endarterectomy, COPD, emphysema came to the emergency room with complaints of redness of the both feet associated with swelling and pain for the last few days. He had an arterial duplex and CT runoff done which showed occlusion on the left femoral stent. Preceding provider discussed with vascular surgery at [facility] yesterday who has recommended close outpatient assessment at their clinic in [place]. Patient is having difficulty ambulating due to his severe pain likely from both his neuropathy and severe PVD. PT has assessed him as well and he needs to go to a SNF/rehab. He says he continues to have bilateral leg pain. He does have very faint dorsalis pedis pulses. Reason For Visit: COPD EXACERBATION AND CELLULITIS BOTH FEET Physical Exam Vital Signs: Temp Pulse Resp BP Pulse Ox 98.4 F 78 18 136/52 H 92 08/12/18 03:21 08/12/18 16:30 08/12/18 16:30 08/12/18 03:21 08/12/18 16:30 Intake & Output 08/11/18 08/12/18 08/13/18 06:59 06:59 06:59 Intake Total 1430 1100 1000 Output Total 2550 2600 1200 Balance -1120 -1500 -200 Weight 274 lb 0.553 oz 274 lb 0.553 oz General appearance: PRESENT: no acute distress, well-developed, well-nourished Head exam: PRESENT: atraumatic, normocephalic Eye exam: PRESENT: conjunctiva pink, EOMI, PERRLA. ABSENT: scleral icterus Ear exam: PRESENT: normal external ear exam Mouth exam: PRESENT: moist, tongue midline Neck exam: ABSENT: carotid bruit, JVD, lymphadenopathy, thyromegaly Respiratory exam: PRESENT: clear to auscultation rom. ABSENT: rales, rhonchi, wheezes Cardiovascular exam: PRESENT: RRR. ABSENT: diastolic murmur, rubs, systolic murmur Pulses: PRESENT: normal dorsalis pedis pul GI/Abdominal exam: PRESENT: normal bowel sounds, soft. ABSENT: distended, guarding, mass, organolmegaly, rebound, tenderness Rectal exam: PRESENT: deferred Extremities exam: PRESENT: other - No discoloration or cyanosis on both feet. He does have very faint doralis pedis pulses. Neurological exam: PRESENT: alert, awake, oriented to person, oriented to place, oriented to time, oriented to situation, CN II-XII grossly intact. ABSENT: motor sensory deficit Results Laboratory Results: 08/10/18 09:04 08/10/18 09:04 08/07/18 16:37 Blood Blood Culture - Final NO GROWTH IN 5 DAYS 08/07/18 15:25 Blood Blood Culture - Final NO GROWTH IN 5 DAYS 08/07/18 08/07/18 08/07/18 13:30 13:30 20:00 Creatine Kinase 310 H 250 H CK-MB (CK-2) Troponin I 0.015 NT-Pro-B Natriuret Pep 425 08/07/18 08/08/18 08/08/18 20:00 01:40 01:40 Creatine Kinase 295 H CK-MB (CK-2) 3.77 4.91 H Troponin I 0.014 0.012 NT-Pro-B Natriuret Pep 08/08/18 08/08/18 07:30 07:30 Creatine Kinase 409 H CK-MB (CK-2) 6.60 H Troponin I 0.018 NT-Pro-B Natriuret Pep 1040 H Impressions: Chest X-Ray 08/07/18 13:30 IMPRESSION: NO ACUTE RADIOGRAPHIC FINDING IN THE CHEST. Foot X-Ray 08/07/18 13:30 IMPRESSION: NEGATIVE STUDY OF THE RIGHT FOOT. NO RADIOGRAPHIC EVIDENCE OF ACUTE INJURY. Aorta w/Runoff CTA 08/10/18 00:00 IMPRESSION: NONDIAGNOSTIC STUDY. THERE IS INSUFFICIENT CONTRAST IN THE VESSELS. RATHER THAN GIVE THE PATIENT ADDITIONAL CONTRAST AT THIS TIME, MAY CONSIDER NONINVASIVE EVALUATION WITH ARTERIAL DOPPLER AND ANKLE-BRACHIAL INDICES. IF THERE ARE SIGNIFICANT ABNORMAL FINDINGS ON NONINVASIVE IMAGING AND/OR IF INTERVENTION IS PLANNED, THEN MAY REPEAT THE CTA AND RUNOFF STUDY. Lower Extremity Ultrasound 08/11/18 00:00 IMPRESSION: Right: High-grade stenosis proximal femoral artery. Occluded posterior tibial artery. Left: Occluded femoral artery stent. Reconstituted flow with estimated 50% stenosis in the popliteal artery. Retrograde flow below the knee. Assessment and Plan - Diagnosis (1) PVD (peripheral vascular disease) Is this a current diagnosis for this admission?: Yes Plan: He had an arterial duplex which showed occlusion on the left femoral stent with reconstituted flow on the popliteal artery and high grade right femoral stenosis. Preceding provider discussed with vascular surgery at [facility] yesterday who has recommended close outpatient assessment at their clinic in [place]. Started on Plavix. Add statin. Continue to monitor for signs of acute limb ischemia. (2) COPD (chronic obstructive pulmonary disease) Qualifiers: COPD type: COPD with acute exacerbation Qualified Code(s): J44.1 - Chronic obstructive pulmonary disease with (acute) exacerbation Is this a current diagnosis for this admission?: Yes (3) Diabetes Is this a current diagnosis for this admission?: Yes (4) HTN (hypertension) Is this a current diagnosis for this admission?: Yes - Time Time Spent with patient: 25-34 minutes
[2018-08-12] MEDS: ATORVASTATIN CALCIUM 40 MG TABLET PO SCH (22:43)
[2018-08-13] MEDS: OXYCODONE-ACETAMINOPHEN 5-325 MG TABLET PO PRN ×2 (02:10→09:17)
[2018-08-13] MEDS: IPRATROPIUM/ALBUTEROL 0.5-2.5 MG/3 ML AMPUL NEB SCH ×6 (04:24→23:25)
[2018-08-13] MEDS: GABAPENTIN 300 MG CAPSULE PO SCH ×3 (06:16→21:16)
[2018-08-13] MEDS: ENOXAPARIN SODIUM INJ 40 MG/0.4 ML DISP.SYRIN SUBCUT SCH (09:15)
[2018-08-13] MEDS: FUROSEMIDE 40 MG TABLET PO SCH (09:17)
[2018-08-13] MEDS: FAMOTIDINE 20 MG TABLET PO SCH ×2 (09:18→21:16)
[2018-08-13] MEDS: NICOTINE 21 MG/24 HR PATCH.TD24 TD SCH (09:18)
[2018-08-13] MEDS: CLOPIDOGREL BISULFATE 75 MG TABLET PO SCH (09:18)
--- NOTE | 2018-08-13 10:22 | EKG REPORT ---
SEVERITY:- NORMAL ECG - SINUS RHYTHM : Confirmed by: Darshana Gee 13-Aug-2018 10:21:20
[2018-08-13 12:20] LABS: ABSOLUTE EOSINOPHILS # (AUTO) 0.3 10^3/uL (0.0-0.6); ABSOLUTE LYMPHOCYTES (AUTO) 0.9 10^3/uL (0.5-4.7); ABSOLUTE MONOCYTES (AUTO) 0.4 10^3/uL (0.1-1.4); ABSOLUTE NEUT (AUTO) 2.4 10^3/uL (1.7-8.2); BASOPHILS % (AUTO) 1.1 % (0-2); EOSINOPHILS % (AUTO) 6.3 % (0-6); HEMATOCRIT 40.6 % (37.9-51.0); HEMOGLOBIN 13.9 g/dL (13.5-17.0); MEAN CORPUSCULAR HEMOGLOBIN 32.5 pg (27.0-33.4); MEAN CORPUSCULAR HGB CONC 34.2 g/dL (32.0-36.0); MEAN CORPUSCULAR VOLUME 95 fl (80-97); MONOCYTES % (AUTO) 10.1 % (3-13); RED BLOOD COUNT 4.28 10^6/uL (4.35-5.55); RED CELL DISTRIBUTION WIDTH 13.1 % (11.5-14.0); SEGMENTED NEUTROPHILS % (AUTO) 60.5 % (42-78); TOTAL CELLS COUNTED % (AUTO) 100 %
[2018-08-13 12:43] LABS: PLATELET COUNT 95 10^3/uL (150-450)
[2018-08-13 12:54] LABS: ANION GAP 8 (5-19); BLOOD UREA NITROGEN 21 mg/dL (7-20); CALCIUM 9.6 mg/dL (8.4-10.2); CARBON DIOXIDE 35 mmol/L (22-30); CHLORIDE 94 mmol/L (98-107); GLUCOSE 145 mg/dL (75-110); POTASSIUM 5.3 mmol/L (3.6-5.0); SODIUM 136.9 mmol/L (137-145)
--- NOTE | 2018-08-13 14:32 | RADIOLOGY REPORT (SQ) ---
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 Images reviewed with l astrid, soft tissue, and bone windows. Reconstructed coronal and sagittal MPR images reviewed. All image s stored on PACS. Advanced 3D imaging as volume-rendering, MIPs, SSD performed? yes All CT scanners at this facility use dose modulation, iterative reconstruction, and/or weight based d osing when appropriate to reduce radiation dose to as low as reasonably achievable (ALARA). [facility]: Dose Right [facility]: CareDose [facility]: Dose Right [facility]: Teradose 4D [facility]: [employer] CONTRAST TYPE AND DOSE: contrast/concentration: Isovue 350.00 mg/ml; Total Contrast Delivered: 100.0 ml; Total Saline Delivered: 100.0 ml RENAL FUNCTION: BUN 21, creatinine 0.7 LIMITATIONS: None. FINDINGS: NON-CONTRASTED IMAGING: The non contrasted study is from the prior exam dated 08/10/2018. There is scattered diffuse calcified atherosclerotic plaque in the aorta common pelvic vessels and in the right and left SFA is, popliteal arteries and infrapopliteal vessels. POST-CONTRAST IMAGING: AORTA AND VESSELS: Aorta demonstrates diffuse atherosclerotic plaque. No high-grade stenosis. The common iliacs external iliacs and hypogastrics are patent bilaterally. There is rather diffuse c alcified plaque in these vessels. No greater than 50% stenosis is identified. The right common femoral, deep femoral and SFA are patent. The right common femoral artery demonstra antony significant calcified plaque and at least 50% stenosis at its origin. There is calcified plaque at the origin of the right SFA again with a least 50% narrowing. There is severe disease in the dist al right SFA short segment occlusion cannot be excluded. The popliteal artery is patent with signifi cant narrowing distally. There is severe infrapopliteal disease. The left common femoral and deep femoral artery are patent. The left SFA is occluded. There is a st ent in the distal left SFA which is occluded as well. Collateral vessels reconstitute the popliteal artery just above the knee joint. There is calcified plaque throughout. There is severe left-sided infrapopliteal disease. None of the vessels appear to be in continuity. Further evaluation with con ventional angiography is recommended. RETROPERITONEUM: No retroperitoneal adenopathy, hemorrhage or masses. BOWEL AND PERITONEAL CAVITY: Visualized GI tract unremarkable. APPENDIX: Not visualized. ABDOMINAL WALL: No masses. No hernias. BONY STRUCTURES: No significant or acute findings. 3-D IMAGING: Confirms the above findings. OTHER: No other significant finding. IMPRESSION: 1. Mild diffuse inflow disease. No obvious high-grade stenosis. 2. Occluded left SFA. Collateral vessels reconstitute the left popliteal artery just above the knee joint. There is severe left infrapopliteal disease. 3. Moderate to severe distal left SFA and popliteal disease. There is severe left infrapopliteal di sease. Correlation with conventional arteriography is recommended. TECHNICAL DOCUMENTATION: JOB ID: [id number] Quality ID # [id number]: Final reports with documentation of one or more dose reduction techniques (e.g., Au tomated exposure control, adjustment of the mA and/or kV according to patient size, use of iterative reconstruction technique) 2010 [employer]- All Rights Reserved Reading location - IP/workstation name: [email or web address]
[2018-08-13] MEDS: HYDROCODONE/ACETAMINOPHEN 7.5-325 MG TABLET PO PRN ×2 (15:57→23:47)
--- NOTE | 2018-08-13 17:22 | PDOC PROGRESS REPORT ---
Subjective Progress Note for:: 08/13/18 Subjective:: This is a 68 year old male with a history of hypertension, homelessness, diabetes mellitus, congestive heart failure, myocardial ischemia, PVD with prior left lower leg stent placement, left carotid endarterectomy, COPD, emphysema came to the emergency room with complaints of redness of the both feet associated with swelling and pain for the last few days. He had an arterial duplex which showed occlusion on the left femoral stent. Preceding provider discussed with vascular surgery at [facility] yesterday who has recommended close outpatient assessment at their clinic in [place]. Patient is having difficulty ambulating due to his severe pain likely from both his neuropathy and severe PVD. PT has assessed him as well and he needs to go to a SNF/rehab. He says he continues to have bilateral leg pain. He does have very faint dorsalis pedis pulses. 08/13: No acute event overnight. He does report he continues to have pain on both legs. He has bluish discoloration on the toes on the right foot which has been there for several days. Will pursue a repeat CTA run off as first one was suboptimal and nondiagnostic. Discharge planning working on placement. Reason For Visit: COPD EXACERBATION AND CELLULITIS BOTH FEET Physical Exam Vital Signs: Temp Pulse Resp BP Pulse Ox 98.3 F 72 18 132/51 H 98 08/13/18 11:19 08/13/18 15:27 08/13/18 15:27 08/13/18 11:19 08/13/18 15:27 Intake & Output 08/12/18 08/13/18 08/14/18 06:59 06:59 06:59 Intake Total 1100 1720 Output Total 2600 2700 Balance -1500 -980 Weight 274 lb 0.553 oz 274 lb 0.553 oz General appearance: PRESENT: no acute distress, well-developed, well-nourished Head exam: PRESENT: atraumatic, normocephalic Eye exam: PRESENT: conjunctiva pink, EOMI, PERRLA. ABSENT: scleral icterus Ear exam: PRESENT: normal external ear exam Mouth exam: PRESENT: moist, tongue midline Neck exam: ABSENT: carotid bruit, JVD, lymphadenopathy, thyromegaly Respiratory exam: PRESENT: clear to auscultation rom. ABSENT: rales, rhonchi, wheezes Cardiovascular exam: PRESENT: RRR. ABSENT: diastolic murmur, rubs, systolic murmur Pulses: PRESENT: other - bluish discoloration on the toes on the right foot faint dorsalis pedis pulses bilaterally GI/Abdominal exam: PRESENT: normal bowel sounds, soft. ABSENT: distended, guarding, mass, organolmegaly, rebound, tenderness Rectal exam: PRESENT: deferred Extremities exam: PRESENT: other - bluish discoloration on the toes on the right foot faint dorsalis pedis pulses bilaterally Neurological exam: PRESENT: alert, awake, oriented to person, oriented to place, oriented to time, oriented to situation, CN II-XII grossly intact. ABSENT: motor sensory deficit Results Laboratory Results: 08/13/18 12:07 08/13/18 12:07 08/13/18 08/13/18 08/13/18 12:07 12:07 12:07 WBC 4.0 RBC 4.28 L Hgb 13.9 Hct 40.6 MCV 95 MCH 32.5 MCHC 34.2 RDW 13.1 Plt Count 95 L Seg Neutrophils % 60.5 Lymphocytes % 22.0 Monocytes % 10.1 Eosinophils % 6.3 H Basophils % 1.1 Absolute Neutrophils 2.4 Absolute Lymphocytes 0.9 Absolute Monocytes 0.4 Absolute Eosinophils 0.3 Absolute Basophils 0.0 Sodium 136.9 L Potassium 5.3 H Chloride 94 L Carbon Dioxide 35 H Anion Gap 8 BUN 21 H Creatinine 0.70 Est GFR ( Amer) > 60 Est GFR (Non-Af Amer) > 60 Glucose 145 H Lactic Acid 2.0 Calcium 9.6 08/07/18 16:37 Blood Blood Culture - Final NO GROWTH IN 5 DAYS 08/07/18 15:25 Blood Blood Culture - Final NO GROWTH IN 5 DAYS 08/07/18 08/07/18 08/07/18 13:30 13:30 20:00 Creatine Kinase 310 H 250 H CK-MB (CK-2) Troponin I 0.015 NT-Pro-B Natriuret Pep 425 08/07/18 08/08/18 08/08/18 20:00 01:40 01:40 Creatine Kinase 295 H CK-MB (CK-2) 3.77 4.91 H Troponin I 0.014 0.012 NT-Pro-B Natriuret Pep 08/08/18 08/08/18 07:30 07:30 Creatine Kinase 409 H CK-MB (CK-2) 6.60 H Troponin I 0.018 NT-Pro-B Natriuret Pep 1040 H Impressions: Chest X-Ray 08/07/18 13:30 IMPRESSION: NO ACUTE RADIOGRAPHIC FINDING IN THE CHEST. Foot X-Ray 08/07/18 13:30 IMPRESSION: NEGATIVE STUDY OF THE RIGHT FOOT. NO RADIOGRAPHIC EVIDENCE OF ACUTE INJURY. Lower Extremity Ultrasound 08/11/18 00:00 IMPRESSION: Right: High-grade stenosis proximal femoral artery. Occluded posterior tibial artery. Left: Occluded femoral artery stent. Reconstituted flow with estimated 50% stenosis in the popliteal artery. Retrograde flow below the knee. Aorta w/Runoff CTA 08/13/18 11:50 IMPRESSION: 1. Mild diffuse inflow disease. No obvious high-grade stenosis. 2. Occluded left SFA. Collateral vessels reconstitute the left popliteal artery just above the knee joint. There is severe left infrapopliteal disease. 3. Moderate to severe distal left SFA and popliteal disease. There is severe left infrapopliteal disease. Correlation with conventional arteriography is recommended. Assessment and Plan - Diagnosis (1) PVD (peripheral vascular disease) Is this a current diagnosis for this admission?: Yes Plan: He had an arterial duplex which showed occlusion on the left femoral stent with reconstituted flow on the popliteal artery and high grade right femoral stenosi s. Preceding provider discussed with vascular surgery at [facility] yesterday who has recommended close outpatient assessment at their clinic in [place]. Started on Plavix. Add statin. Continue to monitor for signs of acute limb ischemia. 08/13: Will pursue a repeat CTA run off as first one was suboptimal and nondiagnostic. (2) COPD (chronic obstructive pulmonary disease) Qualifiers: COPD type: COPD with acute exacerbation Qualified Code(s): J44.1 - Chronic obstructive pulmonary disease with (acute) exacerbation Is this a current diagnosis for this admission?: Yes Plan: Resolved. (3) Diabetes Is this a current diagnosis for this admission?: Yes Plan: Controlled. Sugars at goal. (4) HTN (hypertension) Is this a current diagnosis for this admission?: Yes Plan: Blood pressures at goal.
[2018-08-13] MEDS: ATORVASTATIN CALCIUM 40 MG TABLET PO SCH (21:16)
[2018-08-14] MEDS: IPRATROPIUM/ALBUTEROL 0.5-2.5 MG/3 ML AMPUL NEB SCH ×5 (04:43→21:02)
[2018-08-14] MEDS: HYDROCODONE/ACETAMINOPHEN 7.5-325 MG TABLET PO PRN ×3 (04:49→21:32)
[2018-08-14] MEDS: GABAPENTIN 300 MG CAPSULE PO SCH ×3 (05:26→21:32)
[2018-08-14] MEDS: ENOXAPARIN SODIUM INJ 40 MG/0.4 ML DISP.SYRIN SUBCUT SCH (09:09)
[2018-08-14] MEDS: FAMOTIDINE 20 MG TABLET PO SCH ×2 (09:11→21:32)
[2018-08-14] MEDS: NICOTINE 21 MG/24 HR PATCH.TD24 TD SCH (09:11)
[2018-08-14] MEDS: FUROSEMIDE 40 MG TABLET PO SCH (09:11)
[2018-08-14] MEDS: CLOPIDOGREL BISULFATE 75 MG TABLET PO SCH (09:11)
--- NOTE | 2018-08-14 16:08 | PDOC PROGRESS REPORT ---
Subjective Progress Note for:: 08/14/18 Subjective:: This is a 68 year old male with a history of hypertension, homelessness, diabetes mellitus, congestive heart failure, myocardial ischemia, PVD with prior left lower leg stent placement, left carotid endarterectomy, COPD, emphysema came to the emergency room with complaints of redness of the both feet associated with swelling and pain for the last few days. He had an arterial duplex which showed occlusion on the left femoral stent. Preceding provider discussed with vascular surgery at [facility] yesterday who has recommended close outpatient assessment at their clinic in [place]. Patient is having difficulty ambulating due to his severe pain likely from both his neuropathy and severe PVD. PT has assessed him as well and he needs to go to a SNF/rehab. He says he continues to have bilateral leg pain. He does have very faint dorsalis pedis pulses. 08/13: He does report he continues to have pain on both legs. He has bluish discoloration on the toes on the right foot which has been there for several days. Will pursue a repeat CTA run off as first one was suboptimal and nondiagnostic. Discharge planning working on placement. 08/14: No acute event overnight. He still complains of pain on both legs. No progression in discolored toes. Noted CTA run off results. Awaiting for placement. He will closely follow up with vascular surgery in [place] once he is placed. Reason For Visit: COPD EXACERBATION AND CELLULITIS BOTH FEET Physical Exam Vital Signs: Temp Pulse Resp BP Pulse Ox 98 F 73 20 130/47 H 98 08/14/18 11:00 08/14/18 14:00 08/14/18 12:09 08/14/18 11:00 08/14/18 12:09 Intake & Output 08/13/18 08/14/18 08/15/18 06:59 06:59 06:59 Intake Total 1720 957 Output Total 2700 600 Balance -980 357 Weight 274 lb 0.553 oz 274 lb 0.553 oz General appearance: PRESENT: no acute distress, well-developed, well-nourished Head exam: PRESENT: atraumatic, normocephalic Eye exam: PRESENT: conjunctiva pink, EOMI, PERRLA. ABSENT: scleral icterus Ear exam: PRESENT: normal external ear exam Mouth exam: PRESENT: moist, tongue midline Neck exam: ABSENT: carotid bruit, JVD, lymphadenopathy, thyromegaly Respiratory exam: PRESENT: clear to auscultation rom. ABSENT: rales, rhonchi, wheezes Cardiovascular exam: PRESENT: RRR. ABSENT: diastolic murmur, rubs, systolic murmur GI/Abdominal exam: PRESENT: normal bowel sounds, soft. ABSENT: distended, guarding, mass, organolmegaly, rebound, tenderness Rectal exam: PRESENT: deferred Extremities exam: PRESENT: other - bluish discoloration on the toes on the right foot faint dorsalis pedis pulses bilaterally Neurological exam: PRESENT: alert, awake, oriented to person, oriented to place, oriented to time, oriented to situation, CN II-XII grossly intact. ABSENT: motor sensory deficit Results Laboratory Results: 08/13/18 12:07 08/13/18 12:07 08/07/18 08/07/18 08/07/18 13:30 13:30 20:00 Creatine Kinase 310 H 250 H CK-MB (CK-2) Troponin I 0.015 NT-Pro-B Natriuret Pep 425 08/07/18 08/08/18 08/08/18 20:00 01:40 01:40 Creatine Kinase 295 H CK-MB (CK-2) 3.77 4.91 H Troponin I 0.014 0.012 NT-Pro-B Natriuret Pep 08/08/18 08/08/18 07:30 07:30 Creatine Kinase 409 H CK-MB (CK-2) 6.60 H Troponin I 0.018 NT-Pro-B Natriuret Pep 1040 H Impressions: Chest X-Ray 08/07/18 13:30 IMPRESSION: NO ACUTE RADIOGRAPHIC FINDING IN THE CHEST. Foot X-Ray 08/07/18 13:30 IMPRESSION: NEGATIVE STUDY OF THE RIGHT FOOT. NO RADIOGRAPHIC EVIDENCE OF ACUTE INJURY. Lower Extremity Ultrasound 08/11/18 00:00 IMPRESSION: Right: High-grade stenosis proximal femoral artery. Occluded p osterior tibial artery. Left: Occluded femoral artery stent. Reconstituted flow with estimated 50% stenosis in the popliteal artery. Retrograde flow below the knee. Aorta w/Runoff CTA 08/13/18 11:50 IMPRESSION: 1. Mild diffuse inflow disease. No obvious high-grade stenosis. 2. Occluded left SFA. Collateral vessels reconstitute the left popliteal artery just above the knee joint. There is severe left infrapopliteal disease. 3. Moderate to severe distal left SFA and popliteal disease. There is severe left infrapopliteal disease. Correlation with conventional arteriography is recommended. Assessment and Plan - Diagnosis (1) PVD (peripheral vascular disease) Is this a current diagnosis for this admission?: Yes Plan: He had an arterial duplex which showed occlusion on the left femoral stent with reconstituted flow on the popliteal artery and high grade right femoral stenosis. Preceding provider discussed with vascular surgery at [facility] who has recommended close outpatient assessment at their clinic in [place]. Started on Plavix. Add statin. Continue to monitor for signs of acute limb ischemia. 08/14: No progression in discolored toes. Noted CTA run off results. Awaiting for placement. He will closely follow up with vascular surgery in [place] once he is placed. (2) COPD (chronic obstructive pulmonary disease) Qualifiers: COPD type: COPD with acute exacerbation Qualified Code(s): J44.1 - Chronic obstructive pulmonary disease with (acute) exacerbation Is this a current diagnosis for this admission?: Yes Plan: Resolved. (3) Diabetes Is this a current diagnosis for this admission?: Yes Plan: Controlled. Sugars at goal. (4) HTN (hypertension) Is this a current diagnosis for this admission?: Yes Plan: Blood pressures at goal. - Time Time Spent with patient: 15-24 minutes
[2018-08-14] MEDS ORDERED: PREGABALIN 75 MG CAPSULE PO ONE (16:30)
[2018-08-14] MEDS: ATORVASTATIN CALCIUM 40 MG TABLET PO SCH (21:32)
[2018-08-15] MEDS: IPRATROPIUM/ALBUTEROL 0.5-2.5 MG/3 ML AMPUL NEB SCH ×6 (02:38→19:40)
[2018-08-15] MEDS: HYDROCODONE/ACETAMINOPHEN 7.5-325 MG TABLET PO PRN ×2 (04:15→21:17)
[2018-08-15] MEDS: GABAPENTIN 300 MG CAPSULE PO SCH ×3 (05:33→21:16)
[2018-08-15] MEDS: ENOXAPARIN SODIUM INJ 40 MG/0.4 ML DISP.SYRIN SUBCUT SCH ×2 (09:51→10:04)
[2018-08-15] MEDS: FUROSEMIDE 40 MG TABLET PO SCH (10:03)
[2018-08-15] MEDS: FAMOTIDINE 20 MG TABLET PO SCH ×2 (10:04→21:17)
[2018-08-15] MEDS: CLOPIDOGREL BISULFATE 75 MG TABLET PO SCH (10:04)
[2018-08-15] MEDS: NICOTINE 21 MG/24 HR PATCH.TD24 TD SCH (10:04)
[2018-08-15] MEDS: MORPHINE SULFATE 10 MG/ML INJ IV PRN ×2 (10:05→18:43)
--- NOTE | 2018-08-15 17:09 | PDOC PROGRESS REPORT ---
Subjective Progress Note for:: 08/15/18 Subjective:: This is a 68 year old male with a history of hypertension, homelessness, diabetes mellitus, congestive heart failure, myocardial ischemia, PVD with prior left lower leg stent placement, left carotid endarterectomy, COPD, emphysema came to the emergency room with complaints of redness of the both feet associated with swelling and pain for the last few days. He had an arterial duplex which showed occlusion on the left femoral stent. Preceding provider discussed with vascular surgery at [facility] yesterday who has recommended close outpatient assessment at their clinic in [place]. Patient is having difficulty ambulating due to his severe pain likely from both his neuropathy and severe PVD. PT has assessed him as well and he needs to go to a SNF/rehab. He says he continues to have bilateral leg pain. He does have very faint dorsalis pedis pulses. 08/13: He does report he continues to have pain on both legs. He has bluish discoloration on the toes on the right foot which has been there for several days. Will pursue a repeat CTA run off as first one was suboptimal and nondiagnostic. Discharge planning working on placement. 08/14: He still complains of pain on both legs. No progression in discolored toes. Noted CTA run off results. Awaiting for placement. He will closely follow up with vascular surgery in [place] once he is placed. 08/15: No acute event overnight. Denies acute complains. Patient is just awaiting rehab/SNF placement. Reason For Visit: COPD EXACERBATION AND CELLULITIS BOTH FEET Physical Exam Vital Signs: Temp Pulse Resp BP Pulse Ox 97.8 F 69 18 125/37 L 98 08/15/18 16:00 08/15/18 16:00 08/15/18 16:00 08/15/18 16:00 08/15/18 16:00 Intake & Output 08/14/18 08/15/18 08/16/18 06:59 06:59 06:59 Intake Total 957 1954 360 Output Total 600 0 1525 Balance 357 96 -1168 Weight 274 lb 0.553 oz 272 lb 11.389 oz General appearance: PRESENT: no acute distress, well-developed, well-nourished Head exam: PRESENT: atraumatic, normocephalic Eye exam: PRESENT: conjunctiva pink, EOMI, PERRLA. ABSENT: scleral icterus Ear exam: PRESENT: normal external ear exam Mouth exam: PRESENT: moist, tongue midline Neck exam: ABSENT: carotid bruit, JVD, lymphadenopathy, thyromegaly Respiratory exam: PRESENT: clear to auscultation rom. ABSENT: rales, rhonchi, wheezes Cardiovascular exam: PRESENT: RRR. ABSENT: diastolic murmur, rubs, systolic murmur Pulses: PRESENT: normal dorsalis pedis pul GI/Abdominal exam: PRESENT: normal bowel sounds, soft. ABSENT: distended, guarding, mass, organolmegaly, rebound, tenderness Rectal exam: PRESENT: deferred Extremities exam: PRESENT: other - unchanged bluish discoloration on the toes on the right foot faint dorsalis pedis pulses bilaterally Neurological exam: PRESENT: alert, awake, oriented to person, oriented to place, oriented to time, oriented to situation, CN II-XII grossly intact. ABSENT: motor sensory deficit Results Laboratory Results: 08/13/18 12:07 08/13/18 12:07 08/07/18 08/07/18 08/07/18 13:30 13:30 20:00 Creatine Kinase 310 H 250 H CK-MB (CK-2) Troponin I 0.015 NT-Pro-B Natriuret Pep 425 08/07/18 08/08/18 08/08/18 20:00 01:40 01:40 Creatine Kinase 295 H CK-MB (CK-2) 3.77 4.91 H Troponin I 0.014 0.012 NT-Pro-B Natriuret Pep 08/08/18 08/08/18 07:30 07:30 Creatine Kinase 409 H CK-MB (CK-2) 6.60 H Troponin I 0.018 NT-Pro-B Natriuret Pep 1040 H Impressions: Chest X-Ray 08/07/18 13:30 IMPRESSION: NO ACUTE RADIOGRAPHIC FINDING IN THE CHEST. Foot X-Ray 08/07/18 13:30 IMPRESSION: NEGATIVE STUDY OF THE RIGHT FOOT. NO RADIOGRAPHIC EVIDENCE OF ACUTE INJURY. Lower Extremity Ultrasound 08/11/18 00:00 IMPRESSION: Right: High-grade stenosis proximal femoral artery. Occluded posterior tibial artery. Left: Occluded femoral artery stent. Reconstituted flow with estimated 50% stenosis in the popliteal artery. Retrograde flow below the knee. Aorta w/Runoff CTA 08/13/18 11:50 IMPRESSION: 1. Mild diffuse inflow disease. No obvious high-grade stenosis. 2. Occluded left SFA. Collateral vessels reconstitute the left popliteal artery just above the knee joint. There is severe left infrapopliteal disease. 3. Moderate to severe distal left SFA and popliteal disease. There is severe left infrapopliteal disease. Correlation with conventional arteriography is recommended. Assessment and Plan - Diagnosis (1) PVD (peripheral vascular disease) Is this a current diagnosis for this admission?: Yes Plan: He had an arterial duplex which showed occlusion on the left femoral stent with reconstituted flow on the popliteal artery and high grade right femoral samantha nosis. Preceding provider discussed with vascular surgery at [facility] who has recommended close outpatient assessment at their clinic in [place]. Started on Plavix. Add statin. Continue to monitor for signs of acute limb ischemia. 08/14: No progression in discolored toes. Noted CTA run off results. Awaiting for placement. He will closely follow up with vascular surgery in [place] once he is placed. (2) COPD (chronic obstructive pulmonary disease) Qualifiers: COPD type: COPD with acute exacerbation Qualified Code(s): J44.1 - Chronic obstructive pulmonary disease with (acute) exacerbation Is this a current diagnosis for this admission?: Yes Plan: Resolved. (3) Diabetes Is this a current diagnosis for this admission?: Yes Plan: Controlled. Sugars at goal. (4) HTN (hypertension) Is this a current diagnosis for this admission?: Yes Plan: Blood pressures at goal. - Time Time Spent with patient: 15-24 minutes
[2018-08-15 18:17] LABS: ABSOLUTE EOSINOPHILS # (AUTO) 0.3 10^3/uL (0.0-0.6); ABSOLUTE LYMPHOCYTES (AUTO) 1.5 10^3/uL (0.5-4.7); ABSOLUTE MONOCYTES (AUTO) 0.6 10^3/uL (0.1-1.4); ABSOLUTE NEUT (AUTO) 2.8 10^3/uL (1.7-8.2); BASOPHILS % (AUTO) 0.9 % (0-2); EOSINOPHILS % (AUTO) 6.1 % (0-6); HEMATOCRIT 45.4 % (37.9-51.0); HEMOGLOBIN 15.6 g/dL (13.5-17.0); LYMPHOCYTES % (AUTO) 28.7 % (13-45); MEAN CORPUSCULAR HEMOGLOBIN 32.5 pg (27.0-33.4); MEAN CORPUSCULAR HGB CONC 34.3 g/dL (32.0-36.0); MEAN CORPUSCULAR VOLUME 95 fl (80-97); MONOCYTES % (AUTO) 11.1 % (3-13); PLATELET COUNT 102 10^3/uL (150-450); RED BLOOD COUNT 4.79 10^6/uL (4.35-5.55); SEGMENTED NEUTROPHILS % (AUTO) 53.2 % (42-78); TOTAL CELLS COUNTED % (AUTO) 100 %; WHITE BLOOD COUNT 5.2 10^3/uL (4.0-10.5)
[2018-08-15 18:22] LABS: ANION GAP 14 (5-19); BLOOD UREA NITROGEN 22 mg/dL (7-20); CALCIUM 9.8 mg/dL (8.4-10.2); CARBON DIOXIDE 32 mmol/L (22-30); CHLORIDE 93 mmol/L (98-107); GLUCOSE 156 mg/dL (75-110); POTASSIUM 4.4 mmol/L (3.6-5.0)
--- NOTE | 2018-08-15 19:51 | RADIOLOGY REPORT (SQ) ---
EXAM DESCRIPTION: CHEST SINGLE VIEW COMPLETED DATE/TIME: 08/15/2018 7:31 pm REASON FOR STUDY: sob COMPARISON: 08/07/2018. EXAM PARAMETERS: NUMBER OF VIEWS: One view. TECHNIQUE: Single frontal radiographic view of the chest acquired. RADIATION DOSE: NA LIMITATIONS: None. FINDINGS: LUNGS AND PLEURA: No opacities, masses or pneumothorax. No pleural effusion. MEDIASTINUM AND HILAR STRUCTURES: No masses. Contour normal. HEART AND VASCULAR STRUCTURES: Heart normal in size. Normal vasculature. BONES: No acute findings. HARDWARE: None in the chest. OTHER: No other significant finding. IMPRESSION: NO ACUTE RADIOGRAPHIC FINDING IN THE CHEST. TECHNICAL DOCUMENTATION: JOB ID: [id number] [employer]- All Rights Reserved Reading location - IP/workstation name: [email or web address]
[2018-08-15] MEDS: ATORVASTATIN CALCIUM 40 MG TABLET PO SCH (21:17)
[2018-08-16] MEDS: MORPHINE SULFATE 10 MG/ML INJ IV PRN ×3 (02:20→23:11)
[2018-08-16] MEDS: IPRATROPIUM/ALBUTEROL 0.5-2.5 MG/3 ML AMPUL NEB SCH ×6 (02:26→19:17)
[2018-08-16] MEDS: GABAPENTIN 300 MG CAPSULE PO SCH ×3 (06:04→22:53)
[2018-08-16] MEDS: HYDROCODONE/ACETAMINOPHEN 7.5-325 MG TABLET PO PRN ×2 (06:04→17:51)
[2018-08-16] MEDS: FUROSEMIDE 40 MG TABLET PO SCH (11:21)
[2018-08-16] MEDS: FAMOTIDINE 20 MG TABLET PO SCH ×2 (11:21→22:53)
[2018-08-16] MEDS: CLOPIDOGREL BISULFATE 75 MG TABLET PO SCH (11:21)
[2018-08-16] MEDS: NICOTINE 21 MG/24 HR PATCH.TD24 TD SCH (11:22)
[2018-08-16] MEDS: ENOXAPARIN SODIUM INJ 40 MG/0.4 ML DISP.SYRIN SUBCUT SCH (11:26)
--- NOTE | 2018-08-16 12:11 | PDOC PROGRESS REPORT ---
Subjective Progress Note for:: 08/16/18 Subjective:: This is a 68 year old male with a history of hypertension, homelessness, diabetes mellitus, congestive heart failure, myocardial ischemia, PVD with prior left lower leg stent placement, left carotid endarterectomy, COPD, emphysema came to the emergency room with complaints of redness of the both feet associated with swelling and pain for the last few days. He had an arterial duplex which showed occlusion on the left femoral stent. Preceding provider discussed with vascular surgery at [facility] yesterday who has recommended close outpatient assessment at their clinic in [place]. Patient is having difficulty ambulating due to his severe pain likely from both his neuropathy and severe PVD. PT has assessed him as well and he needs to go to a SNF/rehab. He says he continues to have bilateral leg pain. He does have very faint dorsalis pedis pulses. 08/13: He does report he continues to have pain on both legs. He has bluish discoloration on the toes on the right foot which has been there for several days. Will pursue a repeat CTA run off as first one was suboptimal and nondiagnostic. Discharge planning working on placement. 08/14: He still complains of pain on both legs. No progression in discolored toes. Noted CTA run off results. Awaiting for placement. He will closely follow up with vascular surgery in [place] once he is placed. 08/16: No acute event overnight. Denies acute complains. Patient is just awaiting rehab/SNF placement. There is significant improvement in the bluish discoloration of the toes on the right foot and they appear pinkish today. Reason For Visit: COPD EXACERBATION AND CELLULITIS BOTH FEET Physical Exam Vital Signs: Temp Pulse Resp BP Pulse Ox 97.5 F 71 18 134/46 H 97 08/16/18 08:00 08/16/18 11:20 08/16/18 11:20 08/16/18 08:00 08/16/18 11:20 Intake & Output 08/15/18 08/16/18 08/17/18 06:59 06:59 06:59 Intake Total 1953 970 Output Total 2049 3415 Balance -96 -2805 Weight 272 lb 11.389 oz 271 lb 2.697 oz General appearance: PRESENT: no acute distress, well-developed, well-nourished Head exam: PRESENT: atraumatic, normocephalic Eye exam: PRESENT: conjunctiva pink, EOMI, PERRLA. ABSENT: scleral icterus Ear exam: PRESENT: normal external ear exam Mouth exam: PRESENT: moist, tongue midline Neck exam: ABSENT: carotid bruit, JVD, lymphadenopathy, thyromegaly Respiratory exam: PRESENT: clear to auscultation rom. ABSENT: rales, rhonchi, wheezes Cardiovascular exam: PRESENT: RRR. ABSENT: diastolic murmur, rubs, systolic murmur Pulses: PRESENT: normal dorsalis pedis pul GI/Abdominal exam: PRESENT: normal bowel sounds, soft. ABSENT: distended, guarding, mass, organolmegaly, rebound, tenderness Rectal exam: PRESENT: deferred Extremities exam: PRESENT: full ROM, other - There is significant improvement in the bluish discoloration of the toes on the right foot and they appear pinkish today.. ABSENT: calf tenderness, clubbing Neurological exam: PRESENT: alert, awake, oriented to person, oriented to place, oriented to time, oriented to situation, CN II-XII grossly intact. ABSENT: motor sensory deficit Results Laboratory Results: 08/15/18 17:39 08/15/18 17:39 08/15/18 08/15/18 17:39 17:39 WBC 5.2 RBC 4.79 Hgb 15.6 Hct 45.4 MCV 95 MCH 32.5 MCHC 34.3 RDW 13.0 Plt Count 102 L Seg Neutrophils % 53.2 Lymphocytes % 28.7 Monocytes % 11.1 Eosinophils % 6.1 H Basophils % 0.9 Absolute Neutrophils 2.8 Absolute Lymphocytes 1.5 Absolute Monocytes 0.6 Absolute Eosinophils 0.3 Absolute Basophils 0.0 Sodium 139.0 Potassium 4.4 Chloride 93 L Carbon Dioxide 32 H Anion Gap 14 BUN 22 H Creatinine 0.76 Est GFR ( Amer) > 60 Est GFR (Non-Af Amer) > 60 Glucose 156 H Calcium 9.8 08/07/18 08/07/18 08/07/18 13:30 13:30 20:00 Creatine Kinase 310 H 250 H CK-MB (CK-2) Troponin I 0.015 NT-Pro-B Natriuret Pep 425 08/07/18 08/08/18 08/08/18 20:00 01:40 01:40 Creatine Kinase 295 H CK-MB (CK-2) 3.77 4.91 H Troponin I 0.014 0.012 NT-Pro-B Natriuret Pep 08/08/18 08/08/18 07:30 07:30 Creatine Kinase 409 H CK-MB (CK-2) 6.60 H Troponin I 0.018 NT-Pro-B Natriuret Pep 1040 H Impressions: Foot X-Ray 08/07/18 13:30 IMPRESSION: NEGATIVE STUDY OF THE RIGHT FOOT. NO RADIOGRAPHIC EVIDENCE OF ACUTE INJURY. Lower Extremity Ultrasound 08/11/18 00:00 IMPRESSION: Right: High-grade stenosis proximal femoral artery. Occluded posterior tibial artery. Left: Occluded femoral artery stent. Reconstituted flow with estimated 50% stenosis in the popliteal artery. Retrograde flow below the knee. Aorta w/Runoff CTA 08/13/18 11:50 IMPRESSION: 1. Mild diffuse inflow disease. No obvious high-grade stenosis. 2. Occluded left SFA. Collateral vessels reconstitute the left popliteal artery just above the knee joint. There is severe left infrapopliteal disease. 3. Moderate to severe distal left SFA and popliteal disease. There is severe left infrapopliteal disease. Correlation with conventional arteriography is recommended. Chest X-Ray 08/15/18 00:00 IMPRESSION: NO ACUTE RADIOGRAPHIC FINDING IN THE CHEST. Assessment and Plan - Diagnosis (1) PVD (peripheral vascular disease) Is this a current diagnosis for this admission?: Yes Plan: He had an arterial duplex which showed occlusion on the left femoral stent with reconstituted flow on the popliteal artery and high grade right femoral stenosis. Preceding provider discussed with vascular surgery at [facility] who has recommended close outpatient assessment at their clinic in [place]. Started on Plavix. Add statin. Continue to monitor for signs of acute limb ischemia. 08/14: No progression in discolored toes. Noted CTA run off results. Awaiting for placement. He will closely follow up with vascular surgery in [place] once he is placed. 08/16: Patient is just awaiting rehab/SNF placement. There is significant improvement in the bluish discoloration of the toes on the right foot and they appear pinkish today. (2) COPD (chronic obstructive pulmonary disease) Qualifiers: COPD type: COPD with acute exacerbation Qualified Code(s): J44.1 - Chronic obstructive pulmonary disease with (acute) exacerbation Is this a current diagnosis for this admission?: Yes Plan: Resolved. (3) Diabetes Is this a current diagnosis for this admission?: Yes Plan: Controlled. Sugars at goal. (4) HTN (hypertension) Is this a current diagnosis for this admission?: Yes Plan: Blood pressures at goal. - Time Time Spent with patient: 15-24 minutes
[2018-08-16] MEDS: INSULIN LISPRO 100 UNIT/ML 3 ML VIAL SUBCUT SCH ×2 (17:49→22:54)
[2018-08-16] MEDS: ATORVASTATIN CALCIUM 40 MG TABLET PO SCH (22:53)
[2018-08-17] MEDS: IPRATROPIUM/ALBUTEROL 0.5-2.5 MG/3 ML AMPUL NEB SCH ×7 (00:14→23:46)
[2018-08-17] MEDS: GABAPENTIN 300 MG CAPSULE PO SCH ×3 (07:11→21:14)
[2018-08-17] MEDS: INSULIN LISPRO 100 UNIT/ML 3 ML VIAL SUBCUT SCH ×4 (08:37→22:19)
[2018-08-17] MEDS: FAMOTIDINE 20 MG TABLET PO SCH ×2 (09:44→21:14)
[2018-08-17] MEDS: FUROSEMIDE 40 MG TABLET PO SCH (09:44)
[2018-08-17] MEDS: NICOTINE 21 MG/24 HR PATCH.TD24 TD SCH (09:44)
[2018-08-17] MEDS: ENOXAPARIN SODIUM INJ 40 MG/0.4 ML DISP.SYRIN SUBCUT SCH (09:45)
[2018-08-17] MEDS: MORPHINE SULFATE 10 MG/ML INJ IV PRN (09:45)
[2018-08-17] MEDS: CLOPIDOGREL BISULFATE 75 MG TABLET PO SCH (09:46)
--- NOTE | 2018-08-17 14:50 | PDOC PROGRESS REPORT ---
Subjective Progress Note for:: 08/17/18 Subjective:: This is a 68 year old male with a history of hypertension, homelessness, diabetes mellitus, congestive heart failure, myocardial ischemia, PVD with prior left lower leg stent placement, left carotid endarterectomy, COPD, emphysema came to the emergency room with complaints of redness of the both feet associated with swelling and pain for the last few days. He had an arterial duplex which showed occlusion on the left femoral stent. Preceding provider discussed with vascular surgery at [facility] yesterday who has recommended close outpatient assessment at their clinic in [place]. Patient is having difficulty ambulating due to his severe pain likely from both his neuropathy and severe PVD. PT has assessed him as well and he needs to go to a SNF/rehab. He says he continues to have bilateral leg pain. He does have very faint dorsalis pedis pulses. 08/13: He does report he continues to have pain on both legs. He has bluish discoloration on the toes on the right foot which has been there for several days. Will pursue a repeat CTA run off as first one was suboptimal and nondiagnostic. Discharge planning working on placement. 08/14: He still complains of pain on both legs. No progression in discolored toes. Noted CTA run off results. Awaiting for placement. He will closely follow up with vascular surgery in [place] once he is placed. 08/16: Denies acute complains. Patient is just awaiting rehab/SNF placement. There is significant improvement in the bluish discoloration of the toes on the right foot and they appear pinkish today. 08/17: No acute event overnight. No recurrence of cyanotic discoloration of the toes on the right foot. Awaiting placement. Insurance has requested OT evaluation. Will put in for OT consult. Reason For Visit: COPD EXACERBATION AND CELLULITIS BOTH FEET Physical Exam Vital Signs: Temp Pulse Resp BP Pulse Ox 98.2 F 74 18 142/74 H 93 08/17/18 08:00 08/17/18 12:14 08/17/18 12:14 08/17/18 08:00 08/17/18 12:14 Intake & Output 08/16/18 08/17/18 08/18/18 06:59 06:59 06:59 Intake Total 970 677 900 Output Total 3775 1000 1000 Balance -2805 -323 -100 Weight 271 lb 2.697 oz 272 lb 11.389 oz General appearance: PRESENT: no acute distress, well-developed, well-nourished Head exam: PRESENT: atraumatic, normocephalic Eye exam: PRESENT: conjunctiva pink, EOMI, PERRLA. ABSENT: scleral icterus Ear exam: PRESENT: normal external ear exam Mouth exam: PRESENT: moist, tongue midline Neck exam: ABSENT: carotid bruit, JVD, lymphadenopathy, thyromegaly Respiratory exam: PRESENT: clear to auscultation rom. ABSENT: rales, rhonchi, wheezes Cardiovascular exam: PRESENT: RRR. ABSENT: diastolic murmur, rubs, systolic murmur Pulses: PRESENT: normal dorsalis pedis pul GI/Abdominal exam: PRESENT: normal bowel sounds, soft. ABSENT: distended, guarding, mass, organolmegaly, rebound, tenderness Rectal exam: PRESENT: deferred Neurological exam: PRESENT: alert, awake, oriented to person, oriented to place, oriented to time, oriented to situation, CN II-XII grossly intact. ABSENT: motor sensory deficit Results Laboratory Results: 08/15/18 17:39 08/15/18 17:39 08/07/18 08/07/18 08/07/18 13:30 13:30 20:00 Creatine Kinase 310 H 250 H CK-MB (CK-2) Troponin I 0.015 NT-Pro-B Natriuret Pep 425 08/07/18 08/08/18 08/08/18 20:00 01:40 01:40 Creatine Kinase 295 H CK-MB (CK-2) 3.77 4.91 H Troponin I 0.014 0.012 NT-Pro-B Natriuret Pep 08/08/18 08/08/18 07:30 07:30 Creatine Kinase 409 H CK-MB (CK-2) 6.60 H Troponin I 0.018 NT-Pro-B Natriuret Pep 1040 H Impressions: Foot X-Ray 08/07/18 13:30 IMPRESSION: NEGATIVE STUDY OF THE RIGHT FOOT. NO RADIOGRAPHIC EVIDENCE OF ACUTE INJURY. Lower Extremity Ultrasound 08/11/18 00:00 IMPRESSION: Right: High-grade stenosis proximal femoral artery. Occluded posterior tibial artery. Left: Occluded femoral artery stent. Reconstituted flow with estimated 50% stenosis in the popliteal artery. Retrograde flow below the knee. Aorta w/Runoff CTA 08/13/18 11:50 IMPRESSION: 1. Mild diffuse inflow disease. No obvious high-grade stenosis. 2. Occluded left SFA. Collateral vessels reconstitute the left popliteal artery just above the knee joint. There is severe left infrapopliteal disease. 3. Moderate to severe distal left SFA and popliteal disease. There is severe left infrapopliteal disease. Correlation with conventional arteriography is recommended. Chest X-Ray 08/15/18 00:00 IMPRESSION: NO ACUTE RADIOGRAPHIC FINDING IN THE CHEST. Assessment and Plan - Diagnosis (1) PVD (peripheral vascular disease) Is this a current diagnosis for this admission?: Yes Plan: He had an arterial duplex which showed occlusion on the left femoral stent with reconstituted flow on the popliteal artery and high grade right femoral stenosis. Preceding provider discussed with vascular surgery at [facility] who has recommended close outpatient assessment at their clinic in [place]. Started on Plavix. Add statin. Continue to monitor for signs of acute limb ischemia. 08/14: No progression in discolored toes. Noted CTA run off results. Awaiting for placement. He will closely follow up with vascular surgery in [place] once he is placed. 08/16: Patient is just awaiting rehab/SNF placement. There is significant improvement in the bluish discoloration of the toes on the right foot and they appear pinkish today. 08/17: No recurrence of cyanotic discoloration of the toes on the right foot. Awaiting placement. Insurance has requested OT evaluation. Will put in for OT consult. (2) COPD (chronic obstructive pulmonary disease) Qualifiers: COPD type: COPD with acute exacerbation Qualified Code(s): J44.1 - Chronic obstructive pulmonary disease with (acute) exacerbation Is this a current diagnosis for this admission?: Yes Plan: Resolved. (3) Diabetes Is this a current diagnosis for this admission?: Yes Plan: Controlled. Sugars at goal. (4) HTN (hypertension) Is this a current diagnosis for this admission?: Yes Plan: Blood pressures at goal. - Time Time Spent with patient: 15-24 minutes
[2018-08-17] MEDS: ATORVASTATIN CALCIUM 40 MG TABLET PO SCH (21:14)
[2018-08-17] MEDS: HYDROCODONE/ACETAMINOPHEN 7.5-325 MG TABLET PO PRN (21:14)
[2018-08-18] MEDS: HYDROCODONE/ACETAMINOPHEN 7.5-325 MG TABLET PO PRN (02:13)
[2018-08-18] MEDS: IPRATROPIUM/ALBUTEROL 0.5-2.5 MG/3 ML AMPUL NEB SCH ×6 (04:21→23:51)
[2018-08-18] MEDS: GABAPENTIN 300 MG CAPSULE PO SCH ×3 (05:50→21:19)
[2018-08-18] MEDS: INSULIN LISPRO 100 UNIT/ML 3 ML VIAL SUBCUT SCH ×4 (08:23→22:04)
[2018-08-18] MEDS: NICOTINE 21 MG/24 HR PATCH.TD24 TD SCH (11:22)
[2018-08-18] MEDS: CLOPIDOGREL BISULFATE 75 MG TABLET PO SCH (11:23)
[2018-08-18] MEDS: ENOXAPARIN SODIUM INJ 40 MG/0.4 ML DISP.SYRIN SUBCUT SCH (11:23)
[2018-08-18] MEDS: FUROSEMIDE 40 MG TABLET PO SCH (11:23)
[2018-08-18] MEDS: FAMOTIDINE 20 MG TABLET PO SCH ×2 (11:23→21:19)
--- NOTE | 2018-08-18 15:41 | PDOC PROGRESS REPORT ---
Subjective Progress Note for:: 08/18/18 Subjective:: This is a 68 year old male with a history of hypertension, homelessness, diabetes mellitus, congestive heart failure, myocardial ischemia, PVD with prior left lower leg stent placement, left carotid endarterectomy, COPD, emphysema came to the emergency room with complaints of redness of the both feet associated with swelling and pain for the last few days. He had an arterial duplex which showed occlusion on the left femoral stent. Preceding provider discussed with vascular surgery at [facility] yesterday who has recommended close outpatient assessment at their clinic in [place]. Patient is having difficulty ambulating due to his severe pain likely from both his neuropathy and severe PVD. PT has assessed him as well and he needs to go to a SNF/rehab. He says he continues to have bilateral leg pain. He does have very faint dorsalis pedis pulses. 08/13: He does report he continues to have pain on both legs. He has bluish discoloration on the toes on the right foot which has been there for several days. Will pursue a repeat CTA run off as first one was suboptimal and nondiagnostic. Discharge planning working on placement. 08/14: He still complains of pain on both legs. No progression in discolored toes. Noted CTA run off results. Awaiting for placement. He will closely follow up with vascular surgery in [place] once he is placed. 08/16: Denies acute complaints. Patient is just awaiting rehab/SNF placement. There is significant improvement in the bluish discoloration of the toes on the right foot and they appear pinkish today. 08/17: No recurrence of cyanotic discoloration of the toes on the right foot. Awaiting placement. Insurance has requested OT evaluation. Will put in for OT consult. 08/18: No acute event overnight. This morning, he complains of mild SOB and has recurrence of bilateral wheezes on exam. He initially was also treated for COPD exacerbation which has since resolved. Will add solumedrol for recurrence of COPD exacerbation. He continues to have difficulty ambulating and needs assistance going to the bathroom. He is awaiting placement. Asked staff to try to reschedule his appointment with Vascular surgery in [facility] (outpatient) on August 25. Reason For Visit: COPD EXACERBATION AND CELLULITIS BOTH FEET Physical Exam Vital Signs: Temp Pulse Resp BP Pulse Ox 97.6 F 67 16 154/49 H 97 08/18/18 04:00 08/18/18 12:13 08/18/18 12:13 08/18/18 04:00 08/18/18 12:13 Intake & Output 08/17/18 08/18/18 08/19/18 06:59 06:59 06:59 Intake Total 677 1600 918 Output Total 1000 2275 850 Balance -323 -675 68 Weight 272 lb 11.389 oz 271 lb 2.697 oz General appearance: PRESENT: no acute distress, well-developed, well-nourished Head exam: PRESENT: atraumatic, normocephalic Eye exam: PRESENT: conjunctiva pink, EOMI, PERRLA. ABSENT: scleral icterus Ear exam: PRESENT: normal external ear exam Mouth exam: PRESENT: moist, tongue midline Neck exam: ABSENT: carotid bruit, JVD, lymphadenopathy, thyromegaly Respiratory exam: PRESENT: wheezes. ABSENT: rales, rhonchi Cardiovascular exam: PRESENT: RRR. ABSENT: diastolic murmur, rubs, systolic murmur Pulses: PRESENT: normal dorsalis pedis pul GI/Abdominal exam: PRESENT: normal bowel sounds, soft. ABSENT: distended, guarding, mass, organolmegaly, rebound, tenderness Rectal exam: PRESENT: deferred Extremities exam: PRESENT: pedal edema, other - toes appear pinkish, no recurrence of cyanotic discolocation so far Neurological exam: PRESENT: alert, awake, oriented to person, oriented to place, oriented to time, oriented to situation, CN II-XII grossly intact. ABSENT: motor sensory deficit Results Laboratory Results: 08/15/18 17:39 08/15/18 17:39 08/07/18 08/07/18 08/07/18 13:30 13:30 20:00 Creatine Kinase 310 H 250 H CK-MB (CK-2) Troponin I 0.015 NT-Pro-B Natriuret Pep 425 08/07/18 08/08/18 08/08/18 20:00 01:40 01:40 Creatine Kinase 295 H CK-MB (CK-2) 3.77 4.91 H Troponin I 0.014 0.012 NT-Pro-B Natriuret Pep 05/17/19 05/17/19 07:30 07:30 Creatine Kinase 409 H CK-MB (CK-2) 6.60 H Troponin I 0.018 NT-Pro-B Natriuret Pep 1040 H Impressions: Foot X-Ray 08/07/18 13:30 IMPRESSION: NEGATIVE STUDY OF THE RIGHT FOOT. NO RADIOGRAPHIC EVIDENCE OF ACUTE INJURY. Lower Extremity Ultrasound 08/11/18 00:00 IMPRESSION: Right: High-grade stenosis proximal femoral artery. Occluded posterior tibial artery. Left: Occluded femoral artery stent. Reconstituted flow with estimated 50% stenosis in the popliteal artery. Retrograde flow below the knee. Aorta w/Runoff CTA 08/13/18 11:50 IMPRESSION: 1. Mild diffuse inflow disease. No obvious high-grade stenosis. 2. Occluded left SFA. Collateral vessels reconstitute the left popliteal artery just above the knee joint. There is severe left infrapopliteal disease. 3. Moderate to severe distal left SFA and popliteal disease. There is severe left infrapopliteal disease. Correlation with conventional arteriography is recommended. Chest X-Ray 08/15/18 00:00 IMPRESSION: NO ACUTE RADIOGRAPHIC FINDING IN THE CHEST. Assessment and Plan - Diagnosis (1) PVD (peripheral vascular disease) Is this a current diagnosis for this admission?: Yes Plan: He had an arterial duplex which showed occlusion on the left femoral stent with reconstituted flow on the popliteal artery and high grade right femoral stenosis. Preceding provider discussed with vascular surgery at [facility] who has recommended close outpatient assessment at their clinic in [place]. Started on Plavix. Add statin. Continue to monitor for signs of acute limb ischemia. 08/14: No progression in discolored toes. Noted CTA run off results. Awaiting for placement. He will closely follow up with vascular surgery in [place] once he is placed. 08/16: Patient is just awaiting rehab/SNF placement. There is significant improvement in the bluish discoloration of the toes on the right foot and they appear pinkish today. 08/18: No recurrence of cyanotic discoloration of the toes on the right foot. Awaiting placement. Insurance has requested OT evaluation. Will put in for OT consult. (2) COPD exacerbation Is this a current diagnosis for this admission?: Yes Plan: Initially resolved. 08/18: Appears he has recurrence of COPD exacerbation. Will add solumedrol. Continue scheduled breathing treatments. (3) Diabetes Is this a current diagnosis for this admission?: Yes Plan: Controlled. Sugars at goal. Hba1c is normal at 5.5. He was on metformin at home. He may not need metformin anymore but will definitely still need to continue monitoring glycemic control. (4) HTN (hypertension) Is this a current diagnosis for this admission?: Yes Plan: Blood pressures at goal. (5) COPD exacerbation Is this a current diagnosis for this admission?: Yes Plan: Initially resolved. 08/18: Appears he has recurrence of COPD exacerbation. Will add solumedrol. Continue scheduled breathing treatments. - Time Time Spent with patient: 15-24 minutes
[2018-08-18] MEDS: METHYLPREDNISOLONE INJ 40 MG/1 ML SDV IV SCH (18:57)
[2018-08-18] MEDS: ATORVASTATIN CALCIUM 40 MG TABLET PO SCH (21:19)
[2018-08-19] MEDS: HYDROCODONE/ACETAMINOPHEN 7.5-325 MG TABLET PO PRN ×2 (02:32→08:26)
[2018-08-19] MEDS: IPRATROPIUM/ALBUTEROL 0.5-2.5 MG/3 ML AMPUL NEB SCH ×5 (04:20→21:30)
[2018-08-19] MEDS: GABAPENTIN 300 MG CAPSULE PO SCH ×3 (06:11→22:23)
[2018-08-19] MEDS: METHYLPREDNISOLONE INJ 40 MG/1 ML SDV IV SCH ×2 (06:11→18:23)
[2018-08-19] MEDS: MORPHINE SULFATE 10 MG/ML INJ IV PRN ×3 (06:11→22:24)
[2018-08-19 06:53] LABS: ANION GAP 14 (5-19); BLOOD UREA NITROGEN 22 mg/dL (7-20); CALCIUM 9.6 mg/dL (8.4-10.2); CARBON DIOXIDE 27 mmol/L (22-30); CHLORIDE 96 mmol/L (98-107); GLUCOSE 268 mg/dL (75-110); POTASSIUM 4.7 mmol/L (3.6-5.0); SODIUM 137.1 mmol/L (137-145)
[2018-08-19] MEDS: INSULIN LISPRO 100 UNIT/ML 3 ML VIAL SUBCUT SCH ×4 (08:18→22:24)
[2018-08-19] MEDS: NICOTINE 21 MG/24 HR PATCH.TD24 TD SCH (12:00)
[2018-08-19] MEDS: CLOPIDOGREL BISULFATE 75 MG TABLET PO SCH (12:00)
[2018-08-19] MEDS: FUROSEMIDE 40 MG TABLET PO SCH (12:00)
[2018-08-19] MEDS: ENOXAPARIN SODIUM INJ 40 MG/0.4 ML DISP.SYRIN SUBCUT SCH (12:00)
[2018-08-19] MEDS: FAMOTIDINE 20 MG TABLET PO SCH ×2 (12:00→22:23)
--- NOTE | 2018-08-19 14:45 | PDOC PROGRESS REPORT ---
Subjective Progress Note for:: 08/19/18 Subjective:: Patient is new to me.AREN SIMPSON is a 68 year old male with a history of homeless, hypertension, diabetes mellitus, congestive heart failure, myocardial ischemia left lower leg stent placement, left carotid endarterectomy, COPD, emphysema came to the emergency room with complaints of redness of the both feet associated with swelling and pain for the last few days. Patient has underlying peripheral arterial disease and his arterial duplex showed occlusion on the left femoral stent. Patient has been treated for cellulitis and COPD exacerbation. Patient currently clinically stable and is awaiting placement to intermediate facility. Reason For Visit: COPD EXACERBATION AND CELLULITIS BOTH FEET Physical Exam Vital Signs: Temp Pulse Resp BP Pulse Ox 98.8 F 81 18 177/52 H 97 08/19/18 13:06 08/19/18 13:06 08/19/18 13:06 08/19/18 13:06 08/19/18 13:06 Intake & Output 08/18/18 08/19/18 08/20/18 06:59 06:59 06:59 Intake Total 1600 1835 Output Total 2275 3425 Balance -675 -1590 Weight 117.4 kg 117.2 kg General appearance: PRESENT: no acute distress Head exam: PRESENT: atraumatic Neck exam: ABSENT: carotid bruit, JVD, lymphadenopathy, thyromegaly Respiratory exam: PRESENT: wheezes. ABSENT: rales, rhonchi Cardiovascular exam: PRESENT: RRR. ABSENT: diastolic murmur, rubs, systolic murmur GI/Abdominal exam: PRESENT: normal bowel sounds, soft. ABSENT: distended, guarding, mass, organolmegaly, rebound, tenderness Neurological exam: PRESENT: alert, awake, oriented to person, oriented to place, oriented to time, oriented to situation Results Laboratory Results: 08/15/18 17:39 08/19/18 05:30 08/19/18 05:30 Sodium 137.1 Potassium 4.7 Chloride 96 L Carbon Dioxide 27 Anion Gap 14 BUN 22 H Creatinine 0.83 Est GFR ( Amer) > 60 Est GFR (Non-Af Amer) > 60 Glucose 268 H Calcium 9.6 08/07/18 08/07/18 08/07/18 13:30 13:30 20:00 Creatine Kinase 310 H 250 H CK-MB (CK-2) Troponin I 0.015 NT-Pro-B Natriuret Pep 425 08/07/18 08/08/18 08/08/18 20:00 01:40 01:40 Creatine Kinase 295 H CK-MB (CK-2) 3.77 4.91 H Troponin I 0.014 0.012 NT-Pro-B Natriuret Pep 08/08/18 08/08/18 07:30 07:30 Creatine Kinase 409 H CK-MB (CK-2) 6.60 H Troponin I 0.018 NT-Pro-B Natriuret Pep 1040 H Impressions: Foot X-Ray 08/07/18 13:30 IMPRESSION: NEGATIVE STUDY OF THE RIGHT FOOT. NO RADIOGRAPHIC EVIDENCE OF ACUTE INJURY. Lower Extremity Ultrasound 08/11/18 00:00 IMPRESSION: Right: High-grade stenosis proximal femoral artery. Occluded posterior tibial artery. Left: Occluded femoral artery stent. Reconstituted flow with estimated 50% stenosis in the popliteal artery. Retrograde flow below the knee. Aorta w/Runoff CTA 08/13/18 11:50 IMPRESSION: 1. Mild diffuse inflow disease. No obvious high-grade stenosis. 2. Occluded left SFA. Collateral vessels reconstitute the left popliteal artery just above the knee joint. There is severe left infrapopliteal disease. 3. Moderate to severe distal left SFA and popliteal disease. There is severe left infrapopliteal disease. Correlation with conventional arteriography is recommended. Chest X-Ray 08/15/18 00:00 IMPRESSION: NO ACUTE RADIOGRAPHIC FINDING IN THE CHEST. Assessment and Plan - Diagnosis (1) COPD exacerbation Is this a current diagnosis for this admission?: Yes Plan: Continue bronchodilators. And supplemental oxygen. (2) Cellulitis of both feet Is this a current diagnosis for this admission?: Yes Plan: Treated (3) Peripheral arterial disease S/P stent Is this a current diagnosis for this admission?: Yes Plan: Patient needs follow-up with his vascular surgeon at [place]. (4) Debility and deconditioning Is this a current diagnosis for this admission?: Yes Plan: Patient qualifies for inpatient rehab for less than 30 days. (5) Chronic systolic CHF (congestive heart failure) Is this a current diagnosis for this admission?: Yes Plan: Compensated continue current regimen. (6) Type 2 diabetes mellitus Is this a current diagnosis for this admission?: Yes Plan: Continue current regimen.
[2018-08-19] MEDS: ATORVASTATIN CALCIUM 40 MG TABLET PO SCH (22:23)
[2018-08-20] MEDS: IPRATROPIUM/ALBUTEROL 0.5-2.5 MG/3 ML AMPUL NEB SCH ×6 (00:13→19:56)
[2018-08-20] MEDS: GABAPENTIN 300 MG CAPSULE PO SCH ×3 (06:19→21:35)
[2018-08-20] MEDS: METHYLPREDNISOLONE INJ 40 MG/1 ML SDV IV SCH ×2 (06:19→17:38)
[2018-08-20] MEDS: INSULIN LISPRO 100 UNIT/ML 3 ML VIAL SUBCUT SCH ×3 (08:05→17:38)
[2018-08-20] MEDS: MORPHINE SULFATE 10 MG/ML INJ IV PRN (08:10)
[2018-08-20] MEDS: CLOPIDOGREL BISULFATE 75 MG TABLET PO SCH (10:05)
[2018-08-20] MEDS: FUROSEMIDE 40 MG TABLET PO SCH (10:05)
[2018-08-20] MEDS: FAMOTIDINE 20 MG TABLET PO SCH ×2 (10:06→21:34)
[2018-08-20] MEDS: NICOTINE 21 MG/24 HR PATCH.TD24 TD SCH (10:06)
[2018-08-20] MEDS: ENOXAPARIN SODIUM INJ 40 MG/0.4 ML DISP.SYRIN SUBCUT SCH (10:07)
[2018-08-20] MEDS: ONDANSETRON HCL INJ/PF 4 MG/2 ML SDV IV PRN (15:36)
[2018-08-20] MEDS ORDERED: ALBUTEROL SULFATE 0.083% NEB 2.5 MG/3 ML AMPUL NEB PRN (20:07)
--- NOTE | 2018-08-20 20:19 | PDOC PROGRESS REPORT ---
Subjective Progress Note for:: 08/20/18 Subjective:: Reporting new diarrhea with abdominal pain. Also leg pain especially when ambulating. Reason For Visit: COPD EXACERBATION AND CELLULITIS BOTH FEET Physical Exam Vital Signs: Temp Pulse Resp BP Pulse Ox 97.8 F 66 16 147/51 H 100 08/20/18 00:03 08/20/18 15:29 08/20/18 15:29 08/20/18 00:03 08/20/18 15:29 Intake & Output 08/19/18 08/20/18 08/21/18 06:59 06:59 06:59 Intake Total 1835 1010 Output Total 3425 1750 Balance -1590 -740 Weight 117.2 kg 117.4 kg General appearance: PRESENT: cooperative, mild distress, well-developed Head exam: PRESENT: atraumatic, normocephalic Ear exam: PRESENT: normal external ear exam Mouth exam: PRESENT: dry mucosa, tongue midline Respiratory exam: PRESENT: symmetrical, unlabored, wheezes - Occ faint wheeze. ABSENT: accessory muscle use, rales, rhonchi, tachypnea Cardiovascular exam: PRESENT: RRR, +S1, +S2 GI/Abdominal exam: PRESENT: distended, normal bowel sounds, soft, tenderness - diffuse. Worse across lower abdomen Rectal exam: PRESENT: deferred Gentrourinary exam: ABSENT: indwelling catheter Extremities exam: ABSENT: calf tenderness, pedal edema Musculoskeletal exam: PRESENT: normal inspection Neurological exam: PRESENT: alert, awake, oriented to person, oriented to place, oriented to time, oriented to situation Psychiatric exam: PRESENT: flat affect. ABSENT: agitated, anxious Focused psych exam: ABSENT: delusional, restlessness Skin exam: PRESENT: dry, normal color, warm Results Laboratory Results: 08/15/18 17:39 08/19/18 05:30 08/07/18 08/07/18 08/07/18 13:30 13:30 20:00 Creatine Kinase 310 H 250 H CK-MB (CK-2) Troponin I 0.015 NT-Pro-B Natriuret Pep 425 08/07/18 08/08/18 08/08/18 20:00 01:40 01:40 Creatine Kinase 295 H CK-MB (CK-2) 3.77 4.91 H Troponin I 0.014 0.012 NT-Pro-B Natriuret Pep 08/08/18 08/08/18 07:30 07:30 Creatine Kinase 409 H CK-MB (CK-2) 6.60 H Troponin I 0.018 NT-Pro-B Natriuret Pep 1040 H Impressions: Foot X-Ray 08/07/18 13:30 IMPRESSION: NEGATIVE STUDY OF THE RIGHT FOOT. NO RADIOGRAPHIC EVIDENCE OF ACUTE INJURY. Lower Extremity Ultrasound 08/11/18 00:00 IMPRESSION: Right: High-grade stenosis proximal femoral artery. Occluded posterior tibial artery. Left: Occluded femoral artery stent. Reconstituted flow with estimated 50% stenosis in the popliteal artery. Retrograde flow below the knee. Aorta w/Runoff CTA 08/13/18 11:50 IMPRESSION: 1. Mild diffuse inflow disease. No obvious high-grade stenosis. 2. Occluded left SFA. Collateral vessels reconstitute the left popliteal artery just above the knee joint. There is severe left infrapopliteal disease. 3. Moderate to severe distal left SFA and popliteal disease. There is severe left infrapopliteal disease. Correlation with conventional arteriography is recommended. Chest X-Ray 08/15/18 00:00 IMPRESSION: NO ACUTE RADIOGRAPHIC FINDING IN THE CHEST. Assessment and Plan - Diagnosis (1) COPD exacerbation Is this a current diagnosis for this admission?: Yes Plan: Initially resolved. 08/18: Appears he has recurrence of COPD exacerbation. Will add solumedrol. Continue scheduled breathing treatments. 08/20/2018-patient appears to be breathing comfortably. He remains on Solu- Medrol and I will decrease his scheduled DuoNeb's to every 8 hours with a PRN albuterol every 4 hours if needed. At this point I do not think that budesonide nebulizer is required. Of note the patient is not on any inhaler therapy at home. (2) Cellulitis of both feet Is this a current diagnosis for this admission?: Yes Plan: 08/07/2018-plan to do the blood cultures and to start him on levo floxacillin 500 mg IV daily. Patient is allergic to penicillins. 08/08/2018-blood cultures are so far negative. Presently on levofloxacin 500 mg IV daily. Still erythema and redness present in the both feet. 08/09/2018-patient came in with erythema redness of the lower extremities most likely secondary to chronic dermatitis. He was started on IV levo floxacillin, blood cultures are negative so far. Afebrile. WBC count is 4800. Plan is to continue the present management. 08/10/2018-patient came with erythema redness of the lower extremities afebrile. May be secondary to chronic skin changes. Complaining of pains especially on walking. Is also complaining of resting pain. To do the CT of the lower extremities. -as mentioned above patient came in with erythema, redness of the lower extremities. Most likely chronic skin changes due to poor circulation. PT consult was requested. With getting arterial Doppler today to Check the vascular status. 08/20/2018-cellulitis has resolved. (3) Peripheral arterial disease S/P stent Is this a current diagnosis for this admission?: Yes Plan: Patient needs follow-up with his vascular surgeon at [place]. 08/20/2018-the patient has a history of significant peripheral arterial disease. A stent has been placed but he has extensive disease in both legs. We will continue his Plavix therapy. It is difficult to know if his symptoms are claudication (which is a reasonable possibility) or not. I will ask physical therapy to work with the patient. (4) Debility and deconditioning Is this a current diagnosis for this admission?: Yes Plan: Patient qualifies for inpatient rehab for less than 30 days. 08/20/2018-the patient is making progress. Please see physical therapy notes. He walked 90 feet with only contact-guard assist. Consider discharged home with home health versus shelter facility. (5) Chronic systolic CHF (congestive heart failure) Is this a current diagnosis for this admission?: Yes Plan: Compensated continue current regimen. 08/20/2018-currently asymptomatic for heart failure. Continue current regimen. (6) Type 2 diabetes mellitus Qualifiers: Diabetes mellitus intermodal dispatcher insulin use: without intermodal dispatcher use Diabetes mellitus complication status: with circulatory complication Diabetes mellitus complication detail: with peripheral angiopathy without gangrene Qualified Code(s): E11.51 - Type 2 diabetes mellitus with diabetic peripheral angiopathy without gangrene Is this a current diagnosis for this admission?: Yes Plan: Continue current regimen. 08/20/2018-fingersticks are well above 200 consistently. I will add back the patient's metformin. He may also need long-acting insulin therapy. (7) Diarrhea Qualifiers: Diarrhea type: unspecified type Qualified Code(s): R19.7 - Diarrhea, unspecified Is this a current diagnosis for this admission?: Yes Plan: 08/20/2018-the patient developed diarrhea today with 4-5 bowel movements and some abdominal discomfort. A stool was sent for C. difficile and this was negative. We will monitor. Imodium added for symptom relief. - Time Time Spent with patient: 25-34 minutes Medications reviewed and adjusted accordingly: Yes Anticipated discharge: Home with Homehealth - Versus shelter, SNF
[2018-08-20] MEDS: ATORVASTATIN CALCIUM 40 MG TABLET PO SCH (21:34)
[2018-08-20] MEDS: CARVEDILOL 3.125 MG TABLET PO SCH (21:34)
[2018-08-20] MEDS: METFORMIN HCL 500 MG TABLET PO SCH (21:34)
[2018-08-21] MEDS: INSULIN LISPRO 100 UNIT/ML 3 ML VIAL SUBCUT SCH ×5 (00:12→23:32)
[2018-08-21] MEDS: IPRATROPIUM/ALBUTEROL 0.5-2.5 MG/3 ML AMPUL NEB SCH ×3 (00:31→16:28)
[2018-08-21 05:54] LABS: ABSOLUTE LYMPHOCYTES (AUTO) 1.1 10^3/uL (0.5-4.7); ABSOLUTE MONOCYTES (AUTO) 0.5 10^3/uL (0.1-1.4); ABSOLUTE NEUT (AUTO) 5.6 10^3/uL (1.7-8.2); BASOPHILS % (AUTO) 0.2 % (0-2); HEMATOCRIT 37.4 % (37.9-51.0); LYMPHOCYTES % (AUTO) 15.1 % (13-45); MEAN CORPUSCULAR HEMOGLOBIN 32.6 pg (27.0-33.4); MEAN CORPUSCULAR HGB CONC 34.8 g/dL (32.0-36.0); MEAN CORPUSCULAR VOLUME 94 fl (80-97); MONOCYTES % (AUTO) 6.5 % (3-13); PLATELET COUNT 104 10^3/uL (150-450); RED CELL DISTRIBUTION WIDTH 12.7 % (11.5-14.0); SEGMENTED NEUTROPHILS % (AUTO) 78.2 % (42-78); TOTAL CELLS COUNTED % (AUTO) 100 %; WHITE BLOOD COUNT 7.2 10^3/uL (4.0-10.5)
[2018-08-21 06:20] LABS: ANION GAP 9 (5-19); BLOOD UREA NITROGEN 23 mg/dL (7-20); CALCIUM 9.3 mg/dL (8.4-10.2); CARBON DIOXIDE 29 mmol/L (22-30); CHLORIDE 102 mmol/L (98-107); GLUCOSE 176 mg/dL (75-110); POTASSIUM 4.6 mmol/L (3.6-5.0); SODIUM 140.2 mmol/L (137-145)
[2018-08-21] MEDS: GABAPENTIN 300 MG CAPSULE PO SCH ×3 (06:28→21:12)
[2018-08-21] MEDS: METHYLPREDNISOLONE INJ 40 MG/1 ML SDV IV SCH (06:28)
[2018-08-21] MEDS: METFORMIN HCL 500 MG TABLET PO SCH ×3 (06:28→21:12)
[2018-08-21] MEDS ORDERED: (PENDING PHARMACY ID) (Metformin Hcl [Metformin Hcl Er] 750 MG) PO SCH (10:00)
[2018-08-21] MEDS: CARVEDILOL 3.125 MG TABLET PO SCH ×2 (13:23→21:12)
[2018-08-21] MEDS: FUROSEMIDE 40 MG TABLET PO SCH (13:24)
[2018-08-21] MEDS: ENOXAPARIN SODIUM INJ 40 MG/0.4 ML DISP.SYRIN SUBCUT SCH (13:29)
[2018-08-21] MEDS: NICOTINE 21 MG/24 HR PATCH.TD24 TD SCH (13:30)
[2018-08-21] MEDS: FAMOTIDINE 20 MG TABLET PO SCH ×2 (13:33→21:12)
[2018-08-21] MEDS: CLOPIDOGREL BISULFATE 75 MG TABLET PO SCH (13:34)
--- NOTE | 2018-08-21 16:51 | PDOC PROGRESS REPORT ---
Subjective Progress Note for:: 08/21/18 Subjective:: The patient has been able to tolerate room air at rest but with exertion he requires oxygen. He is also likely having claudication. Reason For Visit: COPD EXACERBATION AND CELLULITIS BOTH FEET Physical Exam Vital Signs: Temp Pulse Resp BP Pulse Ox 97.5 F 65 12 136/50 H 98 08/21/18 04:00 08/21/18 07:51 08/21/18 07:51 08/21/18 04:00 08/21/18 07:51 Intake & Output 08/20/18 08/21/18 08/22/18 06:59 06:59 06:59 Intake Total 1010 860 Output Total 1750 1100 Balance -740 -240 Weight 117.4 kg 116 kg General appearance: PRESENT: cooperative, mild distress - Currently on nasal cannula as he just showered., well-developed Head exam: PRESENT: atraumatic, normocephalic Eye exam: PRESENT: conjunctiva pink. ABSENT: scleral icterus Ear exam: PRESENT: normal external ear exam Respiratory exam: PRESENT: clear to auscultation rom, symmetrical, unlabored. ABSENT: chest wall tenderness, rales, rhonchi, tachypnea, wheezes Cardiovascular exam: PRESENT: RRR, +S1, +S2 GI/Abdominal exam: PRESENT: normal bowel sounds, soft. ABSENT: distended, tenderness Rectal exam: PRESENT: deferred Gentrourinary exam: ABSENT: indwelling catheter Extremities exam: PRESENT: other - Feet are warm despite diminished dorsalis pedis pulses. ABSENT: pedal edema Neurological exam: PRESENT: alert, awake, oriented to person, oriented to place, oriented to time, oriented to situation, CN II-XII grossly intact Psychiatric exam: PRESENT: appropriate affect, normal mood. ABSENT: agitated, anxious Focused psych exam: ABSENT: delusional, restlessness Skin exam: PRESENT: dry, warm. ABSENT: mottled, rash Results Laboratory Results: 08/21/18 04:22 08/21/18 04:22 08/21/18 08/21/18 04:22 04:22 WBC 7.2 RBC 4.00 L Hgb 13.0 L Hct 37.4 L MCV 94 MCH 32.6 MCHC 34.8 RDW 12.7 Plt Count 104 L Seg Neutrophils % 78.2 H Lymphocytes % 15.1 Monocytes % 6.5 Eosinophils % 0.0 Basophils % 0.2 Absolute Neutrophils 5.6 Absolute Lymphocytes 1.1 Absolute Monocytes 0.5 Absolute Eosinophils 0.0 Absolute Basophils 0.0 Sodium 140.2 Potassium 4.6 Chloride 102 Carbon Dioxide 29 Anion Gap 9 BUN 23 H Creatinine 0.72 Est GFR ( Amer) > 60 Est GFR (Non-Af Amer) > 60 Glucose 176 H Calcium 9.3 Magnesium 2.2 08/07/18 08/07/18 08/07/18 13:30 13:30 20:00 Creatine Kinase 310 H 250 H CK-MB (CK-2) Troponin I 0.015 NT-Pro-B Natriuret Pep 425 08/07/18 08/08/18 08/08/18 20:00 01:40 01:40 Creatine Kinase 295 H CK-MB (CK-2) 3.77 4.91 H Troponin I 0.014 0.012 NT-Pro-B Natriuret Pep 08/08/18 08/08/18 07:30 07:30 Creatine Kinase 409 H CK-MB (CK-2) 6.60 H Troponin I 0.018 NT-Pro-B Natriuret Pep 1040 H Impressions: Foot X-Ray 08/07/18 13:30 IMPRESSION: NEGATIVE STUDY OF THE RIGHT FOOT. NO RADIOGRAPHIC EVIDENCE OF ACUTE INJURY. Lower Extremity Ultrasound 08/11/18 00:00 IMPRESSION: Right: High-grade stenosis proximal femoral artery. Occluded posterior tibial artery. Left: Occluded femoral artery stent. Reconstituted flow with estimated 50% stenosis in the popliteal artery. Retrograde flow below the knee. Aorta w/Runoff CTA 08/13/18 11:50 IMPRESSION: 1. Mild diffuse inflow disease. No obvious high-grade stenosis. 2. Occluded left SFA. Collateral vessels reconstitute the left popliteal artery just above the knee joint. There is severe left infrapopliteal disease. 3. Moderate to severe distal left SFA and popliteal disease. There is severe left infrapopliteal disease. Correlation with conventional arteriography is recommended. Chest X-Ray 08/15/18 00:00 IMPRESSION: NO ACUTE RADIOGRAPHIC FINDING IN THE CHEST. Assessment and Plan - Diagnosis (1) COPD exacerbation Is this a current diagnosis for this admission?: Yes Plan: Initially resolved. 08/18: Appears he has recurrence of COPD exacerbation. Will add solumedrol. Continue scheduled breathing treatments. 08/20/2018-patient appears to be breathing comfortably. He remains on Solu- Medrol and I will decrease his scheduled DuoNeb's to every 8 hours with a PRN albuterol every 4 hours if needed. At this point I do not think that budesonide nebulizer is required. Of note the patient is not on any inhaler therapy at home. 08/21/2018-the patient continues to improve. He in fact spends time at rest on room air. With exertion he needs oxygen. I have learned that he has been accepted at a skilled facility and will likely discharge tomorrow. I will change the Solu-Medrol to prednisone in preparation for discharge. In addition I have started Brio Ellipta and this will replace his nebulizer treatments. (2) Cellulitis of both feet Is this a current diagnosis for this admission?: Yes Plan: 08/07/2018-plan to do the blood cultures and to start him on levo floxacillin 500 mg IV daily. Patient is allergic to penicillins. 08/08/2018-blood cultures are so far negative. Presently on levofloxacin 500 mg IV daily. Still erythema and redness present in the both feet. 08/09/2018-patient came in with erythema redness of the lower extremities most likely secondary to chronic dermatitis. He was started on IV levo floxacillin, blood cultures are negative so far. Afebrile. WBC count is 4800. Plan is to continue the present management. 08/10/2018-patient came with erythema redness of the lower extremities afebrile. May be secondary to chronic skin changes. Complaining of pains especially on walking. Is also complaining of resting pain. To do the CT of the lower extremities. -as mentioned above patient came in with erythema, redness of the lower extremities. Most likely chronic skin changes due to poor circulation. PT consult was requested. With getting arterial Doppler today to Check the vascular status. 08/20/2018-cellulitis has resolved. 08/21/2018-patient completed antibiotic therapy. His legs are better. (3) Peripheral arterial disease S/P stent Is this a current diagnosis for this admission?: Yes Plan: Patient needs follow-up with his vascular surgeon at [place]. 08/20/2018-the patient has a history of significant peripheral arterial disease. A stent has been placed but he has extensive disease in both legs. We will continue his Plavix therapy. It is difficult to know if his symptoms are claudication (which is a reasonable possibility) or not. I will ask physical therapy to work with the patient. 08/21/2018-patient will benefit from evaluation by a vascular surgeon since his leg pain is most likely claudication. He is on the Plavix therapy at this time. We will continue same. We will also continue his atorvastatin. (4) Debility and deconditioning Is this a current diagnosis for this admission?: Yes Plan: Patient qualifies for inpatient rehab for less than 30 days. 08/20/2018-the patient is making progress. Please see physical therapy notes. He walked 90 feet with only contact-guard assist. Consider discharged home with home health versus longterm facility. 08/21/2018-as noted above he is doing better. At rest he is on room air but still requires oxygen with any exertion. He is on oxygen at home and varies the flow from 1 to 3 L. He will benefit from ongoing therapy and his activity level may improve with further vascular intervention. (5) Chronic systolic CHF (congestive heart failure) Is this a current diagnosis for this admission?: Yes Plan: Compensated continue current regimen. 08/20/2018-currently asymptomatic for heart failure. Continue current regimen. 08/21/2018-continue current regimen. (6) Type 2 diabetes mellitus Qualifiers: Diabetes mellitus intermediate accountant insulin use: without skilled nursing use Diabetes m ellitus complication status: with circulatory complication Diabetes mellitus complication detail: with peripheral angiopathy without gangrene Qualified Code(s): E11.51 - Type 2 diabetes mellitus with diabetic peripheral angiopathy without gangrene Is this a current diagnosis for this admission?: Yes Plan: Continue current regimen. 08/20/2018-fingersticks are well above 200 consistently. I will add back the patient's metformin. He may also need long-acting insulin therapy. 08/21/2018-he is still exhibiting high glucose readings. Since there is most likely a discharge tomorrow, and the fact that we are tapering his steroids, his glucoses should improve. At the longterm facility he may require long- acting insulin therapy. (7) Diarrhea Qualifiers: Diarrhea type: unspecified type Qualified Code(s): R19.7 - Diarrhea, unspecified Is this a current diagnosis for this admission?: Yes Plan: 08/20/2018-the patient developed diarrhea today with 4-5 bowel movements and some abdominal discomfort. A stool was sent for C. difficile and this was negative. We will monitor. Imodium added for symptom relief. 08/21/2018-unsure of the etiology but his C. difficile was negative and the diarrhea is improving. - Time Time Spent with patient: 15-24 minutes Medications reviewed and adjusted accordingly: Yes Anticipated discharge: SNF Within: within 24 hours
[2018-08-21] MEDS: LOPERAMIDE HCL 2 MG CAPSULE PO PRN (19:38)
[2018-08-21] MEDS: ACETAMINOPHEN 325 MG TABLET PO PRN (19:38)
[2018-08-21] MEDS: ATORVASTATIN CALCIUM 40 MG TABLET PO SCH (21:12)
[2018-08-21] MEDS: PREDNISONE 20 MG TABLET PO SCH (21:14)
[2018-08-22] MEDS: IPRATROPIUM/ALBUTEROL 0.5-2.5 MG/3 ML AMPUL NEB SCH ×3 (00:01→17:03)
[2018-08-22] MEDS: GABAPENTIN 300 MG CAPSULE PO SCH ×3 (05:19→21:17)
[2018-08-22] MEDS: METFORMIN HCL 500 MG TABLET PO SCH ×3 (05:19→21:17)
[2018-08-22] MEDS: INSULIN LISPRO 100 UNIT/ML 3 ML VIAL SUBCUT SCH ×3 (06:14→17:31)
[2018-08-22] MEDS: FUROSEMIDE 40 MG TABLET PO SCH (09:02)
[2018-08-22] MEDS: PREDNISONE 20 MG TABLET PO SCH ×2 (09:02→17:31)
[2018-08-22] MEDS: FAMOTIDINE 20 MG TABLET PO SCH ×2 (09:02→21:17)
[2018-08-22] MEDS: CLOPIDOGREL BISULFATE 75 MG TABLET PO SCH (09:03)
[2018-08-22] MEDS: FLUTICASONE/VILANTEROL 100-25 MCG/DOSE IH SCH (09:03)
[2018-08-22] MEDS: ENOXAPARIN SODIUM INJ 40 MG/0.4 ML DISP.SYRIN SUBCUT SCH (09:03)
[2018-08-22] MEDS: NICOTINE 21 MG/24 HR PATCH.TD24 TD SCH (09:03)
[2018-08-22] MEDS: TIOTROPIUM BROMIDE DPI 5 CAP/KIT (18 MCG/CAP) IH SCH (09:04)
[2018-08-22] MEDS: LOPERAMIDE HCL 2 MG CAPSULE PO PRN ×2 (09:05→14:35)
[2018-08-22] MEDS: CARVEDILOL 3.125 MG TABLET PO SCH ×2 (09:12→21:16)
[2018-08-22] MEDS: ACETAMINOPHEN 325 MG TABLET PO PRN (11:50)
--- NOTE | 2018-08-22 13:04 | PDOC TRANSFER SUMMARY ---
General - Admit/Disc Date/PCP Admission Date/Primary Care Provider: 08/07/18 16:44 Discharge Date: 08/22/18 - Discharge Diagnosis (1) COPD exacerbation Is this a current diagnosis for this admission?: Yes Summary: The patient is stable on his current regimen. At rest he is able to tolerate room air but with the least amount of exertion his pulse oximeter reports saturations less than 90%. He was using oxygen at home. He is currently on a combination inhaler (Brio Ellipta) and Spiriva. PRN nebulizers are available as well. His steroid therapy is down to prednisone 20 mg twice daily and continue to taper to off. (2) Cellulitis of both feet Is this a current diagnosis for this admission?: Yes Summary: The patient received a course of antibiotics. He does have severe peripheral arterial disease that could add to the symptomatology. He did improve with antibiotics and there is no ulceration on the extremities. Cellulitis resolved. (3) Peripheral arterial disease S/P stent Is this a current diagnosis for this admission?: Yes Summary: Currently on Plavix and atorvastatin. Consider adding aspirin but it does not seem necessary at this time. With exercise hopefully circulation will slowly improve however he does appear to have some claudication. I did tell him that [facility] he needs to see a vascular surgeon. (4) Debility and deconditioning Is this a current diagnosis for this admission?: Yes Summary: The patient is very deconditioned. His exercise was limited by his respiratory and vascular illnesses. He would benefit from ongoing therapy. Is expected stay [facility] the [facility] facility is 30 days or less. (5) Chronic systolic CHF (congestive heart failure) Is this a current diagnosis for this admission?: Yes Summary: His heart failure in fact has been stable on his current regimen. He should have a low-salt low-fat diet. (6) Type 2 diabetes mellitus Is this a current diagnosis for this admission?: Yes Summary: He is Accu-Cheks have improved with the decrease in steroids and resumption of his metformin. Continue to monitor Accu-Cheks and current insulin regimen. (7) Diarrhea Is this a current diagnosis for this admission?: Yes Summary: The patient did have an episode of diarrhea but this is resolved. C. difficile testing was negative. - Additional Information Resuscitation Status: Full Code Home Medications: Carvedilol [Coreg 3.125 mg Tablet] 3.125 mg PO Q12 08/07/18 Clopidogrel Bisulfate [Plavix 75 mg Tablet] 75 mg PO DAILY 08/07/18 Gabapentin [Neurontin 300 mg Capsule] 600 mg PO Q8 08/07/18 Metformin HCl [Metformin HCl ER] 750 mg PO BID 08/07/18 History of Present Illness Admission Date/PCP: 08/07/18 16:44 Patient complains of: Painful right feet and shortness of breath History of Present Illness: AREN SIMPSON is a 68 year old male This pleasant 68-year-old patient is in transit from [place] and moving to [place] to live with his ex-girlfriend. While in [place] he was homeless. He presented to the emergency department with red swollen and painful feet. He does have history of peripheral arterial disease. In addition he has a history of COPD and congestive heart failure and was found to be hypoxic with increased work of breathing requiring supplemental oxygen. The patient was started on antibiotics as well as oxygen and nebulizer treatments. He was referred to the hospital service for admission. Hospital Course Hospital Course: The patient had a fairly benign hospital course. He completed treatment for his cellulitis and his breathing is much better. Please see details above. Physical Exam Vital Signs: Temp Pulse Resp BP Pulse Ox 97.9 F 62 17 144/56 H 94 08/22/18 11:10 08/22/18 11:10 08/22/18 11:10 08/22/18 11:10 08/22/18 11:10 Intake & Output 08/21/18 08/22/18 08/23/18 06:59 06:59 06:59 Intake Total 860 1425 Output Total 1100 2200 Balance -240 -775 Weight 116 kg 117 kg General appearance: PRESENT: no acute distress, cooperative, well-developed Head exam: PRESENT: atraumatic, normocephalic Eye exam: PRESENT: conjunctiva pink. ABSENT: scleral icterus Ear exam: PRESENT: normal external ear exam Respiratory exam: PRESENT: clear to auscultation rom, symmetrical, unlabored. ABSENT: accessory muscle use, rales, rhonchi, tachypnea, wheezes Cardiovascular exam: PRESENT: RRR - With distant heart sounds, +S1, +S2 Results Laboratory Results: 08/21/18 04:22 08/21/18 04:22 08/07/18 08/07/18 08/07/18 13:30 13:30 20:00 Creatine Kinase 310 H 250 H CK-MB (CK-2) Troponin I 0.015 NT-Pro-B Natriuret Pep 425 08/07/18 08/08/18 08/08/18 20:00 01:40 01:40 Creatine Kinase 295 H CK-MB (CK-2) 3.77 4.91 H Troponin I 0.014 0.012 NT-Pro-B Natriuret Pep 08/08/18 08/08/18 07:30 07:30 Creatine Kinase 409 H CK-MB (CK-2) 6.60 H Troponin I 0.018 NT-Pro-B Natriuret Pep 1040 H Impressions: Foot X-Ray 08/07/18 13:30 IMPRESSION: NEGATIVE STUDY OF THE RIGHT FOOT. NO RADIOGRAPHIC EVIDENCE OF ACUTE INJURY. Lower Extremity Ultrasound 08/11/18 00:00 IMPRESSION: Right: High-grade stenosis proximal femoral artery. Occluded posterior tibial artery. Left: Occluded femoral artery stent. Reconstituted flow with estimated 50% stenosis in the popliteal artery. Retrograde flow below the knee. Aorta w/Runoff CTA 08/13/18 11:50 IMPRESSION: 1. Mild diffuse inflow disease. No obvious high-grade stenosis. 2. Occluded left SFA. Collateral vessels reconstitute the left popliteal artery just above the knee joint. There is severe left infrapopliteal disease. 3. Moderate to severe distal left SFA and popliteal disease. There is severe left infrapopliteal disease. Correlation with conventional arteriography is recommended. Chest X-Ray 08/15/18 00:00 IMPRESSION: NO ACUTE RADIOGRAPHIC FINDING IN THE CHEST. Qualifiers - * PATIENT BEING DISCHARGED WITH ANY OF THE FOLLOWING DIAGNOSIS: No Acute Heart Failure Is this a Heart Failure Patient?: No Plan Discharge Plan: Transfer to [facility] and rehab. Expected length of stay 30 days or less Time Spent: Greater than 30 Minutes
[2018-08-22] MEDS: ATORVASTATIN CALCIUM 40 MG TABLET PO SCH (21:17)
[2018-08-23] MEDS: IPRATROPIUM/ALBUTEROL 0.5-2.5 MG/3 ML AMPUL NEB SCH ×3 (00:03→15:25)
[2018-08-23] MEDS: ACETAMINOPHEN 325 MG TABLET PO PRN (06:11)
[2018-08-23] MEDS: METFORMIN HCL 500 MG TABLET PO SCH ×3 (06:12→21:14)
[2018-08-23] MEDS: GABAPENTIN 300 MG CAPSULE PO SCH ×3 (06:12→21:14)
[2018-08-23] MEDS: INSULIN LISPRO 100 UNIT/ML 3 ML VIAL SUBCUT SCH ×4 (06:14→17:49)
[2018-08-23] MEDS: NICOTINE 21 MG/24 HR PATCH.TD24 TD SCH (10:47)
[2018-08-23] MEDS: CARVEDILOL 3.125 MG TABLET PO SCH ×2 (10:47→21:13)
[2018-08-23] MEDS: CLOPIDOGREL BISULFATE 75 MG TABLET PO SCH (10:47)
[2018-08-23] MEDS: FUROSEMIDE 40 MG TABLET PO SCH (10:48)
[2018-08-23] MEDS: ENOXAPARIN SODIUM INJ 40 MG/0.4 ML DISP.SYRIN SUBCUT SCH (10:48)
[2018-08-23] MEDS: FAMOTIDINE 20 MG TABLET PO SCH ×2 (10:48→21:14)
[2018-08-23] MEDS: PREDNISONE 20 MG TABLET PO SCH ×2 (10:48→17:50)
[2018-08-23] MEDS: FLUTICASONE/VILANTEROL 100-25 MCG/DOSE IH SCH (10:58)
[2018-08-23] MEDS: TIOTROPIUM BROMIDE DPI 5 CAP/KIT (18 MCG/CAP) IH SCH (10:58)
--- NOTE | 2018-08-23 19:50 | PDOC PROGRESS REPORT ---
Subjective Progress Note for:: 08/23/18 Subjective:: The patient was in fact discharged and was supposed to transfer to a [facility] facility yesterday. Evidently a state regulation interfered with this. They were unable to correct whatever issue was present and the patient's transfer was held. Reason For Visit: COPD EXACERBATION AND CELLULITIS BOTH FEET Physical Exam Vital Signs: Temp Pulse Resp BP Pulse Ox 97.7 F 61 14 132/57 H 96 08/23/18 10:44 08/23/18 15:25 08/23/18 15:25 08/23/18 10:44 08/23/18 15:25 Intake & Output 08/22/18 08/23/18 08/24/18 06:59 06:59 06:59 Intake Total 1425 2238 Output Total 2200 2424 Balance -775 -186 Weight 117 kg 116.5 kg General appearance: PRESENT: no acute distress, cooperative, well-developed Head exam: PRESENT: atraumatic, normocephalic Ear exam: PRESENT: normal external ear exam Mouth exam: PRESENT: moist, tongue midline Respiratory exam: PRESENT: symmetrical, unlabored, wheezes - Faint intermittent expiratory wheeze. ABSENT: accessory muscle use, prolonged expiratory phas, rales, rhonchi, tachypnea Cardiovascular exam: PRESENT: RRR, +S1, +S2 GI/Abdominal exam: PRESENT: normal bowel sounds, soft. ABSENT: distended, tenderness Rectal exam: PRESENT: deferred Gentrourinary exam: ABSENT: indwelling catheter Extremities exam: ABSENT: pedal edema Musculoskeletal exam: PRESENT: ambulatory Neurological exam: PRESENT: alert, awake, oriented to person, oriented to place, oriented to time, oriented to situation, CN II-XII grossly intact. ABSENT: motor sensory deficit Psychiatric exam: PRESENT: appropriate affect, normal mood. ABSENT: agitated, anxious Focused psych exam: ABSENT: delusional, restlessness Results Laboratory Results: 08/21/18 04:22 08/21/18 04:22 08/07/18 08/07/18 08/07/18 13:30 13:30 20:00 Creatine Kinase 310 H 250 H CK-MB (CK-2) Troponin I 0.015 NT-Pro-B Natriuret Pep 425 08/07/18 08/08/18 08/08/18 20:00 01:40 01:40 Creatine Kinase 295 H CK-MB (CK-2) 3.77 4.91 H Troponin I 0.014 0.012 NT-Pro-B Natriuret Pep 08/08/18 08/08/18 07:30 07:30 Creatine Kinase 409 H CK-MB (CK-2) 6.60 H Troponin I 0.018 NT-Pro-B Natriuret Pep 1040 H Impressions: Foot X-Ray 08/07/18 13:30 IMPRESSION: NEGATIVE STUDY OF THE RIGHT FOOT. NO RADIOGRAPHIC EVIDENCE OF ACUTE INJURY. Lower Extremity Ultrasound 08/11/18 00:00 IMPRESSION: Right: High-grade stenosis proximal femoral artery. Occluded posterior tibial artery. Left: Occluded femoral artery stent. Reconstituted flow with estimated 50% stenosis in the popliteal artery. Retrograde flow below the knee. Aorta w/Runoff CTA 08/13/18 11:50 IMPRESSION: 1. Mild diffuse inflow disease. No obvious high-grade stenosis. 2. Occluded left SFA. Collateral vessels reconstitute the left popliteal artery just above the knee joint. There is severe left infrapopliteal disease. 3. Moderate to severe distal left SFA and popliteal disease. There is severe left infrapopliteal disease. Correlation with conventional arteriography is recommended. Chest X-Ray 08/15/18 00:00 IMPRESSION: NO ACUTE RADIOGRAPHIC FINDING IN THE CHEST. Assessment and Plan - Diagnosis (1) COPD exacerbation Is this a current diagnosis for this admission?: Yes Plan: Initially resolved. 08/18: Appears he has recurrence of COPD exacerbation. Will add solumedrol. Continue scheduled breathing treatments. 08/20/2018-patient appears to be breathing comfortably. He remains on Solu- Medrol and I will decrease his scheduled DuoNeb's to every 8 hours with a PRN albuterol every 4 hours if needed. At this point I do not think that budesonide nebulizer is required. Of note the patient is not on any inhaler therapy at home. 08/21/2018-the patient continues to improve. He in fact spends time at rest on room air. With exertion he needs oxygen. I have learned that he has been accepted at a skilled facility and will likely discharge tomorrow. I will change the Solu-Medrol to prednisone in preparation for discharge. In addition I have started Brio Ellipta and this will replace his nebulizer treatments. 08/22/2018-please see dictated discharge summary as the patient was supposed to transfer 08/23/2018-the patient still gets short of breath with exertion and is able to tolerate room air at rest. Continue current regimen. (2) Cellulitis of both feet Is this a current diagnosis for this admission?: Yes Plan: 08/07/2018-plan to do the blood cultures and to start him on levo floxacillin 500 mg IV daily. Patient is allergic to penicillins. 08/08/2018-blood cultures are so far negative. Presently on levofloxacin 500 mg IV daily. Still erythema and redness present in the both feet. 08/09/2018-patient came in with erythema redness of the lower extremities most likely secondary to chronic dermatitis. He was started on IV levo floxacillin, blood cultures are negative so far. Afebrile. WBC count is 4800. Plan is to continue the present management. 08/10/2018-patient came with erythema redness of the lower extremities afebrile. May be secondary to chronic skin changes. Complaining of pains especially on walking. Is also complaining of resting pain. To do the CT of the lower extremities. -as mentioned above patient came in with erythema, redness of the lower extremities. Most likely chronic skin changes due to poor circulation. PT consult was requested. With getting arterial Doppler today to Check the vascular status. 08/20/2018-cellulitis has resolved. 08/21/2018-patient completed antibiotic therapy. His legs are better. 08/22/2018-see discharge summary 08/23/2018-resolved (3) Peripheral arterial disease S/P stent Is this a current diagnosis for this admission?: Yes Plan: Patient needs follow-up with his vascular surgeon at [place]. 08/20/2018-the patient has a history of significant peripheral arterial disease. A stent has been placed but he has extensive disease in both legs. We will continue his Plavix therapy. It is difficult to know if his symptoms are claudication (which is a reasonable possibility) or not. I will ask physical therapy to work with the patient. 08/21/2018-patient will benefit from evaluation by a vascular surgeon since his leg pain is most likely claudication. He is on the Plavix therapy at this time. We will continue same. We will also continue his atorvastatin. 08/22/2018-see discharge summary 08/23/2018-currently stable. Continue antiplatelet and statin therapy. (4) Debility and deconditioning Is this a current diagnosis for this admission?: Yes Plan: Patient qualifies for inpatient rehab for less than 30 days. 08/20/2018-the patient is making progress. Please see physical therapy notes. He walked 90 feet with only contact-guard assist. Consider discharged home with home health versus [facility] facility. 08/21/2018-as noted above he is doing better. At rest he is on room air but still requires oxygen with any exertion. He is on oxygen at home and varies the flow from 1 to 3 L. He will benefit from ongoing therapy and his activity level may improve with further vascular intervention. 08/22/2018-see discharge summary 08/23/2018-continue physical therapy until the patient is able to transfer to the [facility] facility. (5) Chronic systolic CHF (congestive heart failure) Is this a current diagnosis for this admission?: Yes Plan: Compensated continue current regimen. 08/20/2018-currently asymptomatic for heart failure. Continue current regimen. 08/21/2018-continue current regimen. 08/22/2018-see discharge summary 08/23/2018-currently stable. No changes in the treatment regimen. (6) Type 2 diabetes mellitus Qualifiers: Diabetes mellitus alf insulin use: without alf use Diabetes mellitus complication status: with circulatory complication Diabetes mellitus complication detail: with peripheral angiopathy without gangrene Qualified Code(s): E11.51 - Type 2 diabetes mellitus with diabetic peripheral angiopathy without gangrene Is this a current diagnosis for this admission?: Yes Plan: Continue current regimen. 08/20/2018-fingersticks are well above 200 consistently. I will add back the patient's metformin. He may also need long-acting insulin therapy. 08/21/2018-he is still exhibiting high glucose readings. Since there is most likely a discharge tomorrow, and the fact that we are tapering his steroids, his glucoses should improve. At the [facility] facility he may require long- acting insulin therapy. 08/22/2018-see discharge summary 08/23/2018-resume medication regimen prior to discharge (7) Diarrhea Qualifiers: Diarrhea type: unspecified type Qualified Code(s): R19.7 - Diarrhea, unspecified Is this a current diagnosis for this admission?: Yes Plan: 08/20/2018-the patient developed diarrhea today with 4-5 bowel movements and some abdominal discomfort. A stool was sent for C. difficile and this was negative. We will monitor. Imodium added for symptom relief. 08/21/2018-unsure of the etiology but his C. difficile was negative and the diarrhea is improving. 08/22/2018-see discharge summary 08/23/2018-resolved - Time Time Spent with patient: Less than 15 minutes Medications reviewed and adjusted accordingly: Yes Anticipated discharge: SNF
[2018-08-23] MEDS: ATORVASTATIN CALCIUM 40 MG TABLET PO SCH (21:14)
[2018-08-23] MEDS: LOPERAMIDE HCL 2 MG CAPSULE PO PRN (23:11)
[2018-08-23] MEDS: ONDANSETRON HCL INJ/PF 4 MG/2 ML SDV IV PRN (23:11)
[2018-08-24] MEDS: IPRATROPIUM/ALBUTEROL 0.5-2.5 MG/3 ML AMPUL NEB SCH ×3 (00:15→15:27)
[2018-08-24] MEDS: INSULIN LISPRO 100 UNIT/ML 3 ML VIAL SUBCUT SCH ×4 (00:45→18:12)
[2018-08-24] MEDS: METFORMIN HCL 500 MG TABLET PO SCH ×3 (05:46→21:28)
[2018-08-24] MEDS: GABAPENTIN 300 MG CAPSULE PO SCH ×3 (05:46→21:27)
[2018-08-24] MEDS: LOPERAMIDE HCL 2 MG CAPSULE PO PRN (05:53)
[2018-08-24] MEDS: ENOXAPARIN SODIUM INJ 40 MG/0.4 ML DISP.SYRIN SUBCUT SCH (09:28)
[2018-08-24] MEDS: CARVEDILOL 3.125 MG TABLET PO SCH ×2 (09:29→21:28)
[2018-08-24] MEDS: PREDNISONE 20 MG TABLET PO SCH ×2 (09:34→18:13)
[2018-08-24] MEDS: FAMOTIDINE 20 MG TABLET PO SCH ×2 (09:34→21:28)
[2018-08-24] MEDS: CLOPIDOGREL BISULFATE 75 MG TABLET PO SCH (09:34)
[2018-08-24] MEDS: TIOTROPIUM BROMIDE DPI 5 CAP/KIT (18 MCG/CAP) IH SCH (09:34)
[2018-08-24] MEDS: FUROSEMIDE 40 MG TABLET PO SCH (09:34)
[2018-08-24] MEDS: NICOTINE 21 MG/24 HR PATCH.TD24 TD SCH (09:34)
[2018-08-24] MEDS: FLUTICASONE/VILANTEROL 100-25 MCG/DOSE IH SCH (09:35)
--- NOTE | 2018-08-24 10:06 | PDOC PROGRESS REPORT ---
Subjective Progress Note for:: 08/24/18 Subjective:: Patient is currently resting in bed. He is in the middle of the nebulizer he has no complaints. Reason For Visit: COPD EXACERBATION AND CELLULITIS BOTH FEET Physical Exam Vital Signs: Temp Pulse Resp BP Pulse Ox 97.7 F 46 L 16 124/44 L 95 08/24/18 03:00 08/24/18 07:00 08/24/18 03:00 08/24/18 03:00 08/24/18 03:00 Intake & Output 08/23/18 08/24/18 08/25/18 06:59 06:59 06:59 Intake Total 2238 1060 Output Total 2424 975 Balance -186 85 Weight 116.5 kg 114.8 kg General appearance: PRESENT: no acute distress, cooperative, well-developed, other - Currently with nebulizer treatment Head exam: PRESENT: atraumatic, normocephalic Eye exam: PRESENT: conjunctiva pink. ABSENT: scleral icterus Ear exam: PRESENT: normal external ear exam Respiratory exam: PRESENT: clear to auscultation rom, symmetrical, unlabored. ABSENT: accessory muscle use, rales, rhonchi, tachypnea, wheezes - But he is currently receiving a nebulizer treatment Cardiovascular exam: PRESENT: RRR, +S1, +S2 GI/Abdominal exam: PRESENT: normal bowel sounds, soft. ABSENT: distended, ten derness Rectal exam: PRESENT: deferred Gentrourinary exam: ABSENT: indwelling catheter Extremities exam: ABSENT: pedal edema Musculoskeletal exam: PRESENT: normal inspection Neurological exam: PRESENT: alert, awake, oriented to person, oriented to place, oriented to time, oriented to situation, CN II-XII grossly intact. ABSENT: motor sensory deficit Psychiatric exam: PRESENT: appropriate affect, normal mood. ABSENT: agitated, anxious Focused psych exam: ABSENT: delusional, restlessness Skin exam: PRESENT: other - The skin on the heels, soles and toes of both feet are dry and cracked. Results Laboratory Results: 08/21/18 04:22 08/21/18 04:22 08/07/18 08/07/18 08/07/18 13:30 13:30 20:00 Creatine Kinase 310 H 250 H CK-MB (CK-2) Troponin I 0.015 NT-Pro-B Natriuret Pep 425 08/07/18 08/08/18 08/08/18 20:00 01:40 01:40 Creatine Kinase 295 H CK-MB (CK-2) 3.77 4.91 H Troponin I 0.014 0.012 NT-Pro-B Natriuret Pep 08/08/18 08/08/18 07:30 07:30 Creatine Kinase 409 H CK-MB (CK-2) 6.60 H Troponin I 0.018 NT-Pro-B Natriuret Pep 1040 H Impressions: Foot X-Ray 08/07/18 13:30 IMPRESSION: NEGATIVE STUDY OF THE RIGHT FOOT. NO RADIOGRAPHIC EVIDENCE OF ACUTE INJURY. Lower Extremity Ultrasound 08/11/18 00:00 IMPRESSION: Right: High-grade stenosis proximal femoral artery. Occluded posterior tibial artery. Left: Occluded femoral artery stent. Reconstituted flow with estimated 50% stenosis in the popliteal artery. Retrograde flow below the knee. Aorta w/Runoff CTA 08/13/18 11:50 IMPRESSION: 1. Mild diffuse inflow disease. No obvious high-grade stenosis. 2. Occluded left SFA. Collateral vessels reconstitute the left popliteal artery just above the knee joint. There is severe left infrapopliteal disease. 3. Moderate to severe distal left SFA and popliteal disease. There is severe left infrapopliteal disease. Correlation with conventional arteriography is recommended. Chest X-Ray 08/15/18 00:00 IMPRESSION: NO ACUTE RADIOGRAPHIC FINDING IN THE CHEST. Assessment and Plan - Diagnosis (1) COPD exacerbation Is this a current diagnosis for this admission?: Yes Plan: Initially resolved. 08/18: Appears he has recurrence of COPD exacerbation. Will add solumedrol. Continue scheduled breathing treatments. 08/20/2018-patient appears to be breathing comfortably. He remains on Solu- Medrol and I will decrease his scheduled DuoNeb's to every 8 hours with a PRN albuterol every 4 hours if needed. At this point I do not think that budesonide nebulizer is required. Of note the patient is not on any inhaler therapy at home. 08/21/2018-the patient continues to improve. He in fact spends time at rest on room air. With exertion he needs oxygen. I have learned that he has been accepted at a skilled facility and will likely discharge tomorrow. I will change the Solu-Medrol to prednisone in preparation for discharge. In addition I have started Brio Ellipta and this will replace his nebulizer treatments. 08/22/2018-please see dictated discharge summary as the patient was supposed to transfer 08/23/2018-the patient still gets short of breath with exertion and is able to tolerate room air at rest. Continue current regimen. August 24, 2018-currently on a nebulizer treatment. He is in fact able to tolerate rest on room air but with the least amount of exercise he utilizes oxygen. He would likely benefit from oxygen at night as well as with exertion. If he continues not to smoke and uses inhalers he may be able to eventually wean off of oxygen altogether. It is likely that he does have obstructive sleep apnea and being evaluated for this would be helpful as well. (2) Cellulitis of both feet Is this a current diagnosis for this admission?: Yes Plan: 08/07/2018-plan to do the blood cultures and to start him on levo floxacillin 500 mg IV daily. Patient is allergic to penicillins. 08/08/2018-blood cultures are so far negative. Presently on levofloxacin 500 mg IV daily. Still erythema and redness present in the both feet. 08/09/2018-patient came in with erythema redness of the lower extremities most likely secondary to chronic dermatitis. He was started on IV levo floxacillin, blood cultures are negative so far. Afebrile. WBC count is 4800. Plan is to continue the present management. 08/10/2018-patient came with erythema redness of the lower extremities afebrile. May be secondary to chronic skin changes. Complaining of pains especially on walking. Is also complaining of resting pain. To do the CT of the lower extremities. -as mentioned above patient came in with erythema, redness of the lower extremities. Most likely chronic skin changes due to poor circulation. PT consult was requested. With getting arterial Doppler today to Check the vascular status. 08/20/2018-cellulitis has resolved. 08/21/2018-patient completed antibiotic therapy. His legs are better. 08/22/2018-see discharge summary 08/23/2018-resolved August 24, 2018-the cellulitis has resolved. He does have tinea pedis. See below. (3) Peripheral arterial disease S/P stent Is this a current diagnosis for this admission?: Yes Plan: Patient needs follow-up with his vascular surgeon at [place]. 08/20/2018-the patient has a history of significant peripheral arterial disease. A stent has been placed but he has extensive disease in both legs. We will continue his Plavix therapy. It is difficult to know if his symptoms are claudication (which is a reasonable possibility) or not. I will ask physical therapy to work with the patient. 08/21/2018-patient will benefit from evaluation by a vascular surgeon since his leg pain is most likely claudication. He is on the Plavix therapy at this time. We will continue same. We will also continue his atorvastatin. 08/22/2018-see discharge summary 08/23/2018-currently stable. Continue antiplatelet and statin therapy. August 24, 2018-currently asymptomatic. Continue Plavix therapy. Consider dual therapy with Plavix and aspirin. (4) Debility and deconditioning Is this a current diagnosis for this admission?: Yes Plan: Patient qualifies for inpatient rehab for less than 30 days. 08/20/2018-the patient is making progress. Please see physical therapy notes. He walked 90 feet with only contact-guard assist. Consider discharged home with home health versus [facility] facility. 08/21/2018-as noted above he is doing better. At rest he is on room air but st ill requires oxygen with any exertion. He is on oxygen at home and varies the flow from 1 to 3 L. He will benefit from ongoing therapy and his activity level may improve with further vascular intervention. 08/22/2018-see discharge summary 08/23/2018-continue physical therapy until the patient is able to transfer to the [facility] facility. August 24, 2018-explained to the patient that increasing his activity would help his leg pain and he would likely benefit from a pulmonary rehab program. He is slated for transition to a [facility] facility for ongoing therapy with an expected stay of less than 30 days. (5) Chronic systolic CHF (congestive heart failure) Is this a current diagnosis for this admission?: Yes Plan: Compensated continue current regimen. 08/20/2018-currently asymptomatic for heart failure. Continue current regimen. 08/21/2018-continue current regimen. 08/22/2018-see discharge summary 08/23/2018-currently stable. No changes in the treatment regimen. August 24, 2018-we will continue current medications as the patient is stable. 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 08/20/2018-fingersticks are well above 200 consistently. I will add back the patient's metformin. He may also need long-acting insulin therapy. 08/21/2018-he is still exhibiting high glucose readings. Since there is most likely a discharge tomorrow, and the fact that we are tapering his steroids, his glucoses should improve. At the [facility] facility he may require long- acting insulin therapy. 08/22/2018-see discharge summary 08/23/2018-resume medication regimen prior to discharge August 24, 2018-all of his Accu-Cheks from yesterday have been under 200. Continue current regimen and he would do well to maintain a good diabetic diet. (7) Diarrhea Qualifiers: Diarrhea type: unspecified type Qualified Code(s): R19.7 - Diarrhea, unspecified Is this a current diagnosis for this admission?: Yes Plan: 08/20/2018-the patient developed diarrhea today with 4-5 bowel movements and some abdominal discomfort. A stool was sent for C. difficile and this was negative. We will monitor. Imodium added for symptom relief. 08/21/2018-unsure of the etiology but his C. difficile was negative and the diarrhea is improving. 08/22/2018-see discharge summary 08/23/2018-resolved August 24, 2018-patient is still having diarrhea. It is not discolored. He was tested for C. difficile and this was negative. I have asked for stool culture as well as stool for white blood cells. He is afebrile and so it is likely not infectious. He did report that he avoids milk in the past and so I have added lactose-free diet for the patient as well. He does have Imodium available. (8) Tinea pedis Qualifiers: Laterality: bilateral Qualified Code(s): B35.3 - Tinea pedis Is this a current diagnosis for this admission?: Yes Plan: August 24, 2018-with a dry scaly skin patients can be susceptible to small cracks in the epidermis leading to bed cellulitis. This is especially risky with the patient having peripheral vascular disease and diabetes. We will apply clotrimazole cream 3 times a day to the affected areas until clear. This therapy is usually extremely effective. He also needs to keep his feet clean and dry. - Time Time Spent with patient: 15-24 minutes Medications reviewed and adjusted accordingly: Yes Anticipated discharge: SNF
[2018-08-24] MEDS: CLOTRIMAZOLE 1% CREAM 15 GM TP SCH ×2 (15:31→21:28)
[2018-08-24] MEDS: ATORVASTATIN CALCIUM 40 MG TABLET PO SCH (21:28)
[2018-08-25] MEDS: INSULIN LISPRO 100 UNIT/ML 3 ML VIAL SUBCUT SCH ×5 (00:21→21:35)
[2018-08-25] MEDS: IPRATROPIUM/ALBUTEROL 0.5-2.5 MG/3 ML AMPUL NEB SCH ×3 (00:30→16:08)
[2018-08-25] MEDS: CLOTRIMAZOLE 1% CREAM 15 GM TP SCH ×3 (05:31→21:35)
[2018-08-25] MEDS: GABAPENTIN 300 MG CAPSULE PO SCH ×3 (05:31→21:35)
[2018-08-25] MEDS: METFORMIN HCL 500 MG TABLET PO SCH ×3 (05:31→21:35)
[2018-08-25] MEDS: ACETAMINOPHEN 325 MG TABLET PO PRN (07:45)
[2018-08-25] MEDS: CLOPIDOGREL BISULFATE 75 MG TABLET PO SCH (09:15)
[2018-08-25] MEDS: PREDNISONE 20 MG TABLET PO SCH ×2 (09:17→17:27)
[2018-08-25] MEDS: FAMOTIDINE 20 MG TABLET PO SCH ×2 (09:17→21:35)
[2018-08-25] MEDS: CARVEDILOL 3.125 MG TABLET PO SCH ×2 (09:17→21:35)
[2018-08-25] MEDS: FUROSEMIDE 40 MG TABLET PO SCH (09:17)
[2018-08-25] MEDS: TIOTROPIUM BROMIDE DPI 5 CAP/KIT (18 MCG/CAP) IH SCH (09:19)
[2018-08-25] MEDS: NICOTINE 21 MG/24 HR PATCH.TD24 TD SCH (09:21)
[2018-08-25] MEDS: FLUTICASONE/VILANTEROL 100-25 MCG/DOSE IH SCH (09:23)
[2018-08-25] MEDS: ATORVASTATIN CALCIUM 40 MG TABLET PO SCH (21:35)
[2018-08-26] MEDS: IPRATROPIUM/ALBUTEROL 0.5-2.5 MG/3 ML AMPUL NEB SCH ×4 (01:20→19:39)
[2018-08-26] MEDS: METFORMIN HCL 500 MG TABLET PO SCH ×3 (05:18→21:36)
[2018-08-26] MEDS: GABAPENTIN 300 MG CAPSULE PO SCH ×3 (05:18→21:36)
[2018-08-26] MEDS: CLOTRIMAZOLE 1% CREAM 15 GM TP SCH ×3 (05:18→21:36)
[2018-08-26] MEDS: ACETAMINOPHEN 325 MG TABLET PO PRN (07:36)
[2018-08-26] MEDS: INSULIN LISPRO 100 UNIT/ML 3 ML VIAL SUBCUT SCH ×4 (08:05→21:35)
[2018-08-26] MEDS: LOPERAMIDE HCL 2 MG CAPSULE PO PRN ×2 (08:55→13:23)
[2018-08-26] MEDS: FUROSEMIDE 40 MG TABLET PO SCH (09:00)
[2018-08-26] MEDS: CLOPIDOGREL BISULFATE 75 MG TABLET PO SCH (09:00)
[2018-08-26] MEDS: FLUTICASONE/VILANTEROL 100-25 MCG/DOSE IH SCH (09:00)
[2018-08-26] MEDS: NICOTINE 21 MG/24 HR PATCH.TD24 TD SCH (09:00)
[2018-08-26] MEDS: TIOTROPIUM BROMIDE DPI 5 CAP/KIT (18 MCG/CAP) IH SCH (09:00)
[2018-08-26] MEDS: FAMOTIDINE 20 MG TABLET PO SCH ×2 (09:01→21:36)
[2018-08-26] MEDS: PREDNISONE 20 MG TABLET PO SCH ×2 (09:01→17:23)
[2018-08-26] MEDS: CARVEDILOL 3.125 MG TABLET PO SCH ×2 (09:03→21:36)
--- NOTE | 2018-08-26 10:22 | PDOC PROGRESS REPORT ---
Subjective Progress Note for:: 08/25/18 Subjective:: The patient is resting comfortably on the bed. Respiratory therapy is about to initiate nebulizer treatment. The patient has no new complaints. Reason For Visit: COPD EXACERBATION AND CELLULITIS BOTH FEET Physical Exam Vital Signs: Temp Pulse Resp BP Pulse Ox 97.7 F 53 L 16 136/60 H 97 08/25/18 11:35 08/25/18 11:35 08/25/18 11:35 08/25/18 11:35 08/25/18 11:35 Intake & Output 08/24/18 08/25/18 08/26/18 06:59 06:59 06:59 Intake Total 1060 2280 Output Total 975 2200 Balance 85 80 Weight 114.8 kg 112.8 kg General appearance: PRESENT: no acute distress, cooperative, well-developed Eye exam: PRESENT: conjunctiva pink. ABSENT: scleral icterus Ear exam: PRESENT: normal external ear exam Respiratory exam: PRESENT: symmetrical, unlabored. ABSENT: accessory muscle use, rales, rhonchi, tachypnea, wheezes Cardiovascular exam: PRESENT: RRR, +S1, +S2 GI/Abdominal exam: PRESENT: normal bowel sounds, soft. ABSENT: distended, tenderness Rectal exam: PRESENT: deferred Gentrourinary exam: ABSENT: indwelling catheter Extremities exam: ABSENT: pedal edema, tenderness Neurological exam: PRESENT: alert, awake, oriented to person, oriented to place, oriented to time, oriented to situation, CN II-XII grossly intact. ABSENT: motor sensory deficit Psychiatric exam: PRESENT: appropriate affect, normal mood. ABSENT: agitated, anxious Focused psych exam: ABSENT: delusional, restlessness Skin exam: PRESENT: other - Pigment deposition in his legs consistent with peripheral vascular disease Results Laboratory Results: 08/21/18 04:22 08/21/18 04:22 08/07/18 08/07/18 08/07/18 13:30 13:30 20:00 Creatine Kinase 310 H 250 H CK-MB (CK-2) Troponin I 0.015 NT-Pro-B Natriuret Pep 425 08/07/18 08/08/18 08/08/18 20:00 01:40 01:40 Creatine Kinase 295 H CK-MB (CK-2) 3.77 4.91 H Troponin I 0.014 0.012 NT-Pro-B Natriuret Pep 08/08/18 08/08/18 07:30 07:30 Creatine Kinase 409 H CK-MB (CK-2) 6.60 H Troponin I 0.018 NT-Pro-B Natriuret Pep 1040 H Impressions: Foot X-Ray 08/07/18 13:30 IMPRESSION: NEGATIVE STUDY OF THE RIGHT FOOT. NO RADIOGRAPHIC EVIDENCE OF ACUTE INJURY. Lower Extremity Ultrasound 08/11/18 00:00 IMPRESSION: Right: High-grade stenosis proximal femoral artery. Occluded posterior tibial artery. Left: Occluded femoral artery stent. Reconstituted flow with estimated 50% stenosis in the popliteal artery. Retrograde flow below the knee. Aorta w/Runoff CTA 08/13/18 11:50 IMPRESSION: 1. Mild diffuse inflow disease. No obvious high-grade stenosis. 2. Occluded left SFA. Collateral vessels reconstitute the left popliteal artery just above the knee joint. There is severe left infrapopliteal disease. 3. Moderate to severe distal left SFA and popliteal disease. There is severe l eft infrapopliteal disease. Correlation with conventional arteriography is recommended. Chest X-Ray 08/15/18 00:00 IMPRESSION: NO ACUTE RADIOGRAPHIC FINDING IN THE CHEST. Assessment and Plan - Diagnosis (1) COPD exacerbation Is this a current diagnosis for this admission?: Yes Plan: Initially resolved. 08/18: Appears he has recurrence of COPD exacerbation. Will add solumedrol. Continue scheduled breathing treatments. 08/20/2018-patient appears to be breathing comfortably. He remains on Solu- Medrol and I will decrease his scheduled DuoNeb's to every 8 hours with a PRN albuterol every 4 hours if needed. At this point I do not think that budesonide nebulizer is required. Of note the patient is not on any inhaler therapy at home. 08/21/2018-the patient continues to improve. He in fact spends time at rest on room air. With exertion he needs oxygen. I have learned that he has been accepted at a skilled facility and will likely discharge tomorrow. I will change the Solu-Medrol to prednisone in preparation for discharge. In addition I have started Brio Ellipta and this will replace his nebulizer treatments. 08/22/2018-please see dictated discharge summary as the patient was supposed to transfer 08/23/2018-the patient still gets short of breath with exertion and is able to tolerate room air at rest. Continue current regimen. August 24, 2018-currently on a nebulizer treatment. He is in fact able to tolerate rest on room air but with the least amount of exercise he utilizes oxygen. He would likely benefit from oxygen at night as well as with exertion. If he continues not to smoke and uses inhalers he may be able to eventually wean off of oxygen altogether. It is likely that he does have obstructive sleep apnea and being evaluated for this would be helpful as well. 08/25/2018-patient has been stable. Consider another decrease in his prednisone. Continue current treatments. We will need to convert to combination inhalers and Spiriva while at the custodial facility. He should undergo a pulmonary rehab course after discharge from the custodial facility. (2) Cellulitis of both feet Is this a current diagnosis for this admission?: Yes Plan: 08/07/2018-plan to do the blood cultures and to start him on levo floxacillin 500 mg IV daily. Patient is allergic to penicillins. 08/08/2018-blood cultures are so far negative. Presently on levofloxacin 500 mg IV daily. Still erythema and redness present in the both feet. 08/09/2018-patient came in with erythema redness of the lower extremities most likely secondary to chronic dermatitis. He was started on IV levo floxacillin, blood cultures are negative so far. Afebrile. WBC count is 4800. Plan is to continue the present management. 08/10/2018-patient came with erythema redness of the lower extremities afebrile. May be secondary to chronic skin changes. Complaining of pains especially on walking. Is also complaining of resting pain. To do the CT of the lower extremities. -as mentioned above patient came in with erythema, redness of the lower extremities. Most likely chronic skin changes due to poor circulation. PT consult was requested. With getting arterial Doppler today to Check the vascular status. 08/20/2018-cellulitis has resolved. 08/21/2018-patient completed antibiotic therapy. His legs are better. 08/22/2018-see discharge summary 08/23/2018-resolved August 24, 2018-the cellulitis has resolved. He does have tinea pedis. See below. 08/25/2018-continue topical antifungal (3) Peripheral arterial disease S/P stent Is this a current diagnosis for this admission?: Yes Plan: Patient needs follow-up with his vascular surgeon at [place]. 08/20/2018-the patient has a history of significant peripheral arterial disease. A stent has been placed but he has extensive disease in both legs. We will continue his Plavix therapy. It is difficult to know if his symptoms are claudication (which is a reasonable possibility) or not. I will ask physical therapy to work with the patient. 08/21/2018-patient will benefit from evaluation by a vascular surgeon since his leg pain is most likely claudication. He is on the Plavix therapy at this time. We will continue same. We will also continue his atorvastatin. 08/22/2018-see discharge summary 08/23/2018-currently stable. Continue antiplatelet and statin therapy. August 24, 2018-currently asymptomatic. Continue Plavix therapy. Consider dual therapy with Plavix and aspirin. 08/25/2018-continue antiplatelet therapy. He is aware that he needs a vascular evaluation when he gets to [place]. (4) Debility and deconditioning Is this a current diagnosis for this admission?: Yes Plan: Patient qualifies for inpatient rehab for less than 30 days. 08/20/2018-the patient is making progress. Please see physical therapy notes. He walked 90 feet with only contact-guard assist. Consider discharged home with home health versus custodial facility. 08/21/2018-as noted above he is doing better. At rest he is on room air but still requires oxygen with any exertion. He is on oxygen at home and varies the flow from 1 to 3 L. He will benefit from ongoing therapy and his activity level may improve with further vascular intervention. 08/22/2018-see discharge summary 08/23/2018-continue physical therapy until the patient is able to transfer to the custodial facility. August 24, 2018-explained to the patient that increasing his activity would help his leg pain and he would likely benefit from a pulmonary rehab program. He is slated for transition to a custodial facility for ongoing therapy with an expected stay of less than 30 days. 08/25/2018-ongoing therapy should increase his exercise tolerance. He does need to maintain this regimen as an outpatient. (5) Chronic systolic CHF (congestive heart failure) Is this a current diagnosis for this admission?: Yes Plan: Compensated continue current regimen. 08/20/2018-currently asymptomatic for heart failure. Continue current regimen. 08/21/2018-continue current regimen. 08/22/2018-see discharge summary 08/23/2018-currently stable. No changes in the treatment regimen. August 24, 2018-we will continue current medications as the patient is stable. 08/25/2018-no changes in medications at this time. (6) Type 2 diabetes mellitus Qualifiers: Diabetes mellitus assisted insulin use: without longwall headgate operator use Diabetes mellitus complication status: with circulatory complication Diabetes mellitus complication detail: with peripheral angiopathy without gangrene Qualified Code(s): E11.51 - Type 2 diabetes mellitus with diabetic peripheral angiopathy without gangrene Is this a current diagnosis for this admission?: Yes Plan: Continue current regimen. 08/20/2018-fingersticks are well above 200 consistently. I will add back the patient's metformin. He may also need long-acting insulin therapy. 08/21/2018-he is still exhibiting high glucose readings. Since there is most likely a discharge tomorrow, and the fact that we are tapering his steroids, his glucoses should improve. At the custodial facility he may require long- acting insulin therapy. 08/22/2018-see discharge summary 08/23/2018-resume medication regimen prior to discharge August 24, 2018-all of his Accu-Cheks from yesterday have been under 200. Continue current regimen and he would do well to maintain a good diabetic diet. 08/25/2018-the patient occasionally has fingersticks greater than 200. It is not a consistent pattern and therefore possibly dietary noncompliance. Continue to encourage good diabetic diet. (7) Diarrhea Qualifiers: Diarrhea type: unspecified type Qualified Code(s): R19.7 - Diarrhea, unspecified Is this a current diagnosis for this admission?: Yes Plan: 08/20/2018-the patient developed diarrhea today with 4-5 bowel movements and some abdominal discomfort. A stool was sent for C. difficile and this was negative. We will monitor. Imodium added for symptom relief. 08/21/2018-unsure of the etiology but his C. difficile was negative and the diarr hea is improving. 08/22/2018-see discharge summary 08/23/2018-resolved August 24, 2018-patient is still having diarrhea. It is not discolored. He was tested for C. difficile and this was negative. I have asked for stool culture as well as stool for white blood cells. He is afebrile and so it is likely not infectious. He did report that he avoids milk in the past and so I have added lactose-free diet for the patient as well. He does have Imodium available. 08/25/2018-patient was complaining of diarrhea yesterday. No bowel movements yet today. A stool for culture and white blood cells is pending collection of specimen. (8) Tinea pedis Qualifiers: Laterality: bilateral Qualified Code(s): B35.3 - Tinea pedis Is this a current diagnosis for this admission?: Yes Plan: August 24, 2018-with a dry scaly skin patients can be susceptible to small cracks in the epidermis leading to bed cellulitis. This is especially risky with the patient having peripheral vascular disease and diabetes. We will apply clotrimazole cream 3 times a day to the affected areas until clear. This therapy is usually extremely effective. He also needs to keep his feet clean and dry. 08/25/2018-continued applications of clotrimazole cream should be effective. Will take several weeks for this to resolve.
[2018-08-26] MEDS ORDERED: PSYLLIUM SEED-SF 5.85 GM PACKET PO ONE (17:46)
--- NOTE | 2018-08-26 17:48 | PDOC PROGRESS REPORT ---
Subjective Progress Note for:: 08/26/18 Subjective:: Patient seen on morning rounds. He is found sitting up to the recliner comfortably on room air. He reports that he is feeling well today and is hopeful to hear soon about his insurance approval for SNF placement. He denies fever, chills, headache, dizziness, chest pain, palpitations, dyspnea, orthopnea, abdominal pain, nausea, vomiting, diarrhea. He does report occasional nonproductive cough. Otherwise he has no questions or concerns at this time. No concerns per nursing. Reason For Visit: COPD EXACERBATION AND CELLULITIS BOTH FEET Physical Exam Vital Signs: Temp Pulse Resp BP Pulse Ox 98.2 F 63 18 153/53 H 97 08/26/18 15:53 08/26/18 15:53 08/26/18 15:53 08/26/18 15:53 08/26/18 15:53 Intake & Output 08/25/18 08/26/18 08/27/18 06:59 06:59 06:59 Intake Total 2280 2520 246 Output Total 2200 760 Balance 80 1760 246 Weight 112.8 kg 112.1 kg General appearance: PRESENT: no acute distress, cooperative, obese, well- developed, well-nourished Head exam: PRESENT: atraumatic, normocephalic Eye exam: PRESENT: conjunctiva pink, EOMI, PERRLA. ABSENT: scleral icterus Ear exam: PRESENT: normal external ear exam Mouth exam: PRESENT: moist, tongue midline Teeth exam: PRESENT: poor dentation Neck exam: ABSENT: carotid bruit, JVD, lymphadenopathy, thyromegaly Respiratory exam: PRESENT: symmetrical, unlabored, wheezes - RLL. ABSENT: rales, rhonchi Cardiovascular exam: PRESENT: RRR. ABSENT: diastolic murmur, rubs, systolic murmur Pulses: PRESENT: normal dorsalis pedis pul Vascular exam: PRESENT: normal capillary refill GI/Abdominal exam: PRESENT: normal bowel sounds, soft. ABSENT: distended, guarding, mass, organolmegaly, rebound, tenderness Rectal exam: PRESENT: deferred Extremities exam: PRESENT: full ROM. ABSENT: calf tenderness, clubbing, pedal edema Neurological exam: PRESENT: alert, awake, oriented to person, oriented to place, oriented to time, oriented to situation, CN II-XII grossly intact. ABSENT: motor sensory deficit Psychiatric exam: PRESENT: appropriate affect, normal mood. ABSENT: homicidal i deation, suicidal ideation Skin exam: PRESENT: dry, intact, warm. ABSENT: cyanosis, rash Results Laboratory Results: 08/21/18 04:22 08/21/18 04:22 08/07/18 08/07/18 08/07/18 13:30 13:30 20:00 Creatine Kinase 310 H 250 H CK-MB (CK-2) Troponin I 0.015 NT-Pro-B Natriuret Pep 425 08/07/18 08/08/18 08/08/18 20:00 01:40 01:40 Creatine Kinase 295 H CK-MB (CK-2) 3.77 4.91 H Troponin I 0.014 0.012 NT-Pro-B Natriuret Pep 08/08/18 08/08/18 07:30 07:30 Creatine Kinase 409 H CK-MB (CK-2) 6.60 H Troponin I 0.018 NT-Pro-B Natriuret Pep 1040 H Impressions: Foot X-Ray 08/07/18 13:30 IMPRESSION: NEGATIVE STUDY OF THE RIGHT FOOT. NO RADIOGRAPHIC EVIDENCE OF ACUTE INJURY. Lower Extremity Ultrasound 08/11/18 00:00 IMPRESSION: Right: High-grade stenosis proximal femoral artery. Occluded posterior tibial artery. Left: Occluded femoral artery stent. Reconstituted flow with estimated 50% stenosis in the popliteal artery. Retrograde flow below the knee. Aorta w/Runoff CTA 08/13/18 11:50 IMPRESSION: 1. Mild diffuse inflow disease. No obvious high-grade stenosis. 2. Occluded left SFA. Collateral vessels reconstitute the left popliteal artery just above the knee joint. There is severe left infrapopliteal disease. 3. Moderate to severe distal left SFA and popliteal disease. There is severe left infrapopliteal disease. Correlation with conventional arteriography is recommended. Chest X-Ray 08/15/18 00:00 IMPRESSION: NO ACUTE RADIOGRAPHIC FINDING IN THE CHEST. Assessment and Plan - Diagnosis (1) COPD exacerbation Is this a current diagnosis for this admission?: Yes Plan: Acute exacerbation has resolved. Continue Breo and Spiriva. Continue scheduled and as needed nebulizer treatments; have decreased scheduled frequency. Continue prednisone; last dose tomorrow. Continue incentive spirometer and flutter valve. (2) Cellulitis of both feet Is this a current diagnosis for this admission?: Yes Plan: Resolved; patient does continue to have evidence of tinea pedis. The patient was empirically treated with Levaquin secondary to penicillin allerg y; received full course of therapy.. Continue topical antifungal. (3) Chronic systolic CHF (congestive heart failure) Is this a current diagnosis for this admission?: Yes Plan: Stable and without exacerbation at this time. Continue cardiac diet and daily weights. Continue Plavix, carvedilol, and furosemide. (4) Debility and deconditioning Is this a current diagnosis for this admission?: Yes Plan: PT/OT are consulted. Patient would benefit from SNF for ongoing physical therapy; expected to require a stay of less than 30 days. Discharge planning is consulted. (5) Diabetes Qualifiers: Diabetes mellitus type: type 2 Is this a current diagnosis for this admission?: Yes Plan: Patient is on a consistent carb/cardiac diet. Continue metformin 500 mg every 8 hours. Humalog for sliding scale coverage. Glucose elevations may be secondary to steroid use and treatment of COPD exacerbation. Dietary discretion is advised. Hypoglycemia protocol in place. (6) Diarrhea Qualifiers: Diarrhea type: unspecified type Qualified Code(s): R19.7 - Diarrhea, unspecified Is this a current diagnosis for this admission?: Yes Plan: C. difficile PCR negative. Stool culture pending. Slight decrease in frequency today. Imodium as needed. Patient is encouraged to increase fiber intake; will add daily Metamucil. (7) Peripheral arterial disease S/P stent Is this a current diagnosis for this admission?: Yes Plan: Patient reports history of peripheral arterial disease. Continue Plavix. Recommend outpatient vascular surgeon evaluation for claudication. (8) Tinea pedis Qualifiers: Laterality: bilateral Qualified Code(s): B35.3 - Tinea pedis Is this a current diagnosis for this admission?: Yes Plan: Continue clotrimazole cream topical application every 8 hours; will require several weeks of treatment. Keep feet dry. Maintain adequate blood glucose control. - Time Time Spent with patient: 25-34 minutes Medications reviewed and adjusted accordingly: Yes Anticipated discharge: SNF Within: when bed available
[2018-08-26] MEDS: ATORVASTATIN CALCIUM 40 MG TABLET PO SCH (21:36)
[2018-08-27] MEDS: METFORMIN HCL 500 MG TABLET PO SCH ×3 (05:22→21:05)
[2018-08-27] MEDS: CLOTRIMAZOLE 1% CREAM 15 GM TP SCH ×3 (05:22→21:11)
[2018-08-27] MEDS: GABAPENTIN 300 MG CAPSULE PO SCH ×3 (05:22→21:05)
[2018-08-27] MEDS: IPRATROPIUM/ALBUTEROL 0.5-2.5 MG/3 ML AMPUL NEB SCH (07:46)
[2018-08-27] MEDS: INSULIN LISPRO 100 UNIT/ML 3 ML VIAL SUBCUT SCH ×4 (08:47→21:55)
[2018-08-27] MEDS: LOPERAMIDE HCL 2 MG CAPSULE PO PRN ×2 (08:55→13:34)
[2018-08-27] MEDS: FUROSEMIDE 40 MG TABLET PO SCH (10:48)
[2018-08-27] MEDS: CLOPIDOGREL BISULFATE 75 MG TABLET PO SCH (10:49)
[2018-08-27] MEDS: NICOTINE 21 MG/24 HR PATCH.TD24 TD SCH (10:49)
[2018-08-27] MEDS: PREDNISONE 20 MG TABLET PO SCH ×2 (10:50→17:27)
[2018-08-27] MEDS: CARVEDILOL 3.125 MG TABLET PO SCH ×2 (10:50→21:06)
[2018-08-27] MEDS: FAMOTIDINE 20 MG TABLET PO SCH ×2 (10:50→21:05)
[2018-08-27] MEDS: FLUTICASONE/VILANTEROL 100-25 MCG/DOSE IH SCH (10:50)
[2018-08-27] MEDS: TIOTROPIUM BROMIDE DPI 5 CAP/KIT (18 MCG/CAP) IH SCH (10:51)
[2018-08-27 11:53] LABS: HEMATOCRIT 45.6 % (37.9-51.0); HEMOGLOBIN 15.8 g/dL (13.5-17.0); MEAN CORPUSCULAR HEMOGLOBIN 32.1 pg (27.0-33.4); MEAN CORPUSCULAR HGB CONC 34.8 g/dL (32.0-36.0); MEAN CORPUSCULAR VOLUME 93 fl (80-97); PLATELET COUNT 164 10^3/uL (150-450); RED BLOOD COUNT 4.93 10^6/uL (4.35-5.55); RED CELL DISTRIBUTION WIDTH 13.1 % (11.5-14.0); WHITE BLOOD COUNT 13.6 10^3/uL (4.0-10.5)
[2018-08-27 12:11] LABS: ALANINE AMINOTRANSFERASE 40 U/L (21-72); ALBUMIN 4.6 g/dL (3.5-5.0); ALKALINE PHOSPHATASE 72 U/L (38-126); ANION GAP 16 (5-19); ASPARTATE AMINO TRANSFERASE 18 U/L (17-59); BILIRUBIN,DIRECT 0.3 mg/dL (0.0-0.4); BILIRUBIN,TOTAL 0.7 mg/dL (0.2-1.3); BLOOD UREA NITROGEN 34 mg/dL (7-20); CALCIUM 10.4 mg/dL (8.4-10.2); CARBON DIOXIDE 22 mmol/L (22-30); CHLORIDE 99 mmol/L (98-107); GLUCOSE 130 mg/dL (75-110); POTASSIUM 4.3 mmol/L (3.6-5.0); SODIUM 136.9 mmol/L (137-145); TOTAL PROTEIN 8.1 g/dL (6.3-8.2)
[2018-08-27 12:18] LABS: ABSOLUTE LYMPHOCYTES# (MANUAL) 2.7 10^3/uL (0.5-4.7); ABSOLUTE MONOCYTES # (MANUAL) 0.4 10^3/uL (0.1-1.4); ABSOLUTE NEUTROPHILS# (MANUAL) 10.2 10^3/uL (1.7-8.2); BASOPHILS % (MANUAL) 0 % (0-2); EOSINOPHILS % (MANUAL) 2 % (0-6); LYMPHOCYTES % (MANUAL) 20 % (13-45); METAMYELOCYTES % (MANUAL) 1 % (0); MONOCYTES % (MANUAL) 3 % (3-13); SEGMENTED NEUTROPHILS % (MAN) 74 % (42-78); TOTAL CELLS COUNTED 100
[2018-08-27 12:19] LABS: PLATELET COMMENT ADEQUATE; PLATELET LARGE PRESENT; RBC MORPHOLOGY COMMENT NORMO-CYTIC/CHROMIC
--- NOTE | 2018-08-27 14:39 | RADIOLOGY REPORT (SQ) ---
EXAM DESCRIPTION: CT ABD/PELVIS ORAL ONLY COMPLETED DATE/TIME: 08/27/2018 2:08 pm REASON FOR STUDY: ABD pain, diarrhea F19.11 OTHER PSYCHOACTIVE SUBSTANCE ABUSE, IN REMISSION E11.21 TYPE 2 DIABETES MELLITUS WITH DIABETIC NEPHROPATHY D46.4 REFRACTORY ANEMIA, UNSPECIFIED COMPARISON: 08/13/2018 TECHNIQUE: CT scan of the abdomen and pelvis performed without intravenous contrast. Patient was gi jayce oral contrast. Images reviewed with lung, soft tissue, and bone windows. Reconstructed coronal an d sagittal MPR images reviewed. All images stored on PACS. All CT scanners at this facility use dose modulation, iterative reconstruction, and/or weight based d osing when appropriate to reduce radiation dose to as low as reasonably achievable (ALARA). [facility]: Dose Right [facility]: CareDose [facility]: Dose Right [facility]: Teradose 4D [facility]: [employer] RADIATION DOSE: CT Rad equipment meets quality standard of care and radiation dose reduction techniq ues were employed. CTDIvol: 23.4 mGy. DLP: 1297 mGy-cm.mGy. LIMITATIONS: None. FINDINGS: LOWER CHEST: Scattered coronary atherosclerosis. No acute intrathoracic findings. Left-s ided fat containing Bochdalek hernia. NON-CONTRASTED LIVER, SPLEEN, ADRENALS: Evaluation limited by lack of IV contrast. No identified sign ificant masses. PANCREAS: No masses. No peripancreatic inflammatory changes. GALLBLADDER: No identified stones by CT criteria. No inflammatory changes to suggest cholecystitis. RIGHT KIDNEY AND URETER: Assessment limited by lack of intravenous contrast. Stable peripherally [place] cified cystic lesion along the right lower pole. No nephrolithiasis. No hydronephrosis or hydrour eter. LEFT KIDNEY AND URETER: No suspicious masses. Assessment limited by lack of IV contrast. No signifi cant calcifications. No hydronephrosis or hydroureter. AORTA AND RETROPERITONEUM: No aneurysm. No retroperitoneal masses or adenopathy. BOWEL AND PERITONEAL CAVITY: No obvious masses or inflammatory changes. No free fluid. APPENDIX: Not visualized. PELVIS, BLADDER, AND ABDOMINAL WALL:Decompressed urinary bladder. No free fluid. Known adenopathy. BONES: No acute bony abnormality. No suspicious osseous lesions. Thoracolumbar spondylosis with low er lumbar facet arthropathy. OTHER: No other significant finding. IMPRESSION: 1. No evidence of intestinal obstruction. Scattered gas fluid levels throughout the tr ansverse colon which can be seen with diarrheal illness or cathartic use. No other evidence of acute intra-abdominal/pelvic process. 2. Additional chronic findings as above. COMMENT: Quality ID # [id number]: Final reports with documentation of one or more dose reduction techniques (e.g., Automated exposure control, adjustment of the mA and/or kV according to patient size, use of iterative reconstruction technique) TECHNICAL DOCUMENTATION: JOB ID: [id number] [employer]- All Rights Reserved Reading location - IP/workstation name: [email or web address]
[2018-08-27] MEDS ORDERED: DIPHENOXYLATE HCL/ATROP SULF 2.5-0.025 MG TABLET PO PRN (15:25)
[2018-08-27] MEDS ORDERED: PSYLLIUM SEED-SF 5.85 GM PACKET PO ONE (16:00)
[2018-08-27] MEDS: ONDANSETRON HCL INJ/PF 4 MG/2 ML SDV IV PRN (17:21)
[2018-08-27] MEDS: ACETAMINOPHEN 325 MG TABLET PO PRN (17:26)
[2018-08-27] MEDS: LACTOBACILLUS ACIDOPHILUS 250 MG TAB PO SCH (17:28)
--- NOTE | 2018-08-27 17:40 | PDOC PROGRESS REPORT ---
Subjective Progress Note for:: 08/27/18 Subjective:: Patient seen on morning rounds. He is found sitting up to the recliner comfortably on room air. Unfortunately, patient reports worsening diarrhea; > 12 bowel movements overnight now with incontinence and associated bilateral lower quadrant abdominal discomfort. He denies fever, however does report that he woke with diaphoresis requiring change of gown last night. He otherwise denies fever, chills, headache, dizziness, chest pain, palpitations, dyspnea, orthopnea, nausea, vomiting. He has no questions or concerns at this time. No concerns per nursing. Reason For Visit: COPD EXACERBATION AND CELLULITIS BOTH FEET Physical Exam Vital Signs: Temp Pulse Resp BP Pulse Ox 98.0 F 61 18 130/50 H 98 08/27/18 11:55 08/27/18 11:55 08/27/18 11:55 08/27/18 11:55 08/27/18 11:55 Intake & Output 08/26/18 08/27/18 08/28/18 06:59 06:59 06:59 Intake Total 2520 966 Output Total 760 700 Balance 1760 266 Weight 112.1 kg 112.1 kg General appearance: PRESENT: no acute distress, cooperative, obese, well-devel oped, well-nourished Head exam: PRESENT: atraumatic, normocephalic Eye exam: PRESENT: conjunctiva pink, EOMI, PERRLA. ABSENT: scleral icterus Ear exam: PRESENT: normal external ear exam Mouth exam: PRESENT: moist, tongue midline Teeth exam: PRESENT: poor dentation Neck exam: ABSENT: carotid bruit, JVD, lymphadenopathy, thyromegaly Respiratory exam: PRESENT: rhonchi, symmetrical, unlabored. ABSENT: rales, wheezes Cardiovascular exam: PRESENT: RRR, +S1, +S2. ABSENT: diastolic murmur, rubs, systolic murmur Pulses: PRESENT: normal dorsalis pedis pul Vascular exam: PRESENT: normal capillary refill GI/Abdominal exam: PRESENT: hyperactive bowel sounds, soft, tenderness - bilateral lower quadrants. ABSENT: distended, guarding, mass, organolmegaly, rebound Rectal exam: PRESENT: deferred Extremities exam: PRESENT: full ROM. ABSENT: calf tenderness, clubbing, pedal edema Neurological exam: PRESENT: alert, awake, oriented to person, oriented to place, oriented to time, oriented to situation, CN II-XII grossly intact. ABSENT: motor sensory deficit Psychiatric exam: PRESENT: appropriate affect, normal mood. ABSENT: homicidal ideation, suicidal ideation Skin exam: PRESENT: dry, intact, warm. ABSENT: cyanosis, rash Results Laboratory Results: 08/27/18 11:10 08/27/18 11:10 08/27/18 08/27/18 08/27/18 11:10 11:10 13:45 WBC 13.6 H RBC 4.93 Hgb 15.8 Hct 45.6 MCV 93 MCH 32.1 MCHC 34.8 RDW 13.1 Plt Count 164 Seg Neutrophils % Not Reportable Lymphocytes % Not Reportable Monocytes % Not Reportable Eosinophils % Not Reportable Basophils % Not Reportable Absolute Neutrophils Not Reportable Absolute Lymphocytes Not Reportable Absolute Monocytes Not Reportable Absolute Eosinophils Not Reportable Absolute Basophils Not Reportable Sodium 136.9 L Potassium 4.3 Chloride 99 Carbon Dioxide 22 Anion Gap 16 BUN 34 H Creatinine 0.92 Est GFR ( Amer) > 60 Est GFR (Non-Af Amer) > 60 Glucose 130 H Calcium 10.4 H Total Bilirubin 0.7 AST 18 ALT 40 Alkaline Phosphatase 72 Total Protein 8.1 Albumin 4.6 Stool for White Cells RARE H 08/07/18 08/07/18 08/07/18 13:30 13:30 20:00 Creatine Kinase 310 H 250 H CK-MB (CK-2) Troponin I 0.015 NT-Pro-B Natriuret Pep 425 08/07/18 08/08/18 08/08/18 20:00 01:40 01:40 Creatine Kinase 295 H CK-MB (CK-2) 3.77 4.91 H Troponin I 0.014 0.012 NT-Pro-B Natriuret Pep 08/08/18 08/08/18 07:30 07:30 Creatine Kinase 409 H CK-MB (CK-2) 6.60 H Troponin I 0.018 NT-Pro-B Natriuret Pep 1040 H Impressions: Foot X-Ray 08/07/18 13:30 IMPRESSION: NEGATIVE STUDY OF THE RIGHT FOOT. NO RADIOGRAPHIC EVIDENCE OF ACUTE INJURY. Lower Extremity Ultrasound 08/11/18 00:00 IMPRESSION: Right: High-grade stenosis proximal femoral artery. Occluded posterior tibial artery. Left: Occluded femoral artery stent. Reconstituted flow with estimated 50% stenosis in the popliteal artery. Retrograde flow below the knee. Aorta w/Runoff CTA 08/13/18 11:50 IMPRESSION: 1. Mild diffuse inflow disease. No obvious high-grade stenosis. 2. Occluded left SFA. Collateral vessels reconstitute the left popliteal artery just above the knee joint. There is severe left infrapopliteal disease. 3. Moderate to severe distal left SFA and popliteal disease. There is severe left infrapopliteal disease. Correlation with conventional arteriography is recommended. Chest X-Ray 08/15/18 00:00 IMPRESSION: NO ACUTE RADIOGRAPHIC FINDING IN THE CHEST. Abdomen/Pelvis CT 08/27/18 00:00 IMPRESSION: 1. No evidence of intestinal obstruction. Scattered gas fluid levels throughout the transverse colon which can be seen with diarrheal illness or cathartic use. No other evidence of acute intra-abdominal/pelvic process. 2. Additional chronic findings as above. Assessment and Plan - Diagnosis (1) COPD exacerbation Is this a current diagnosis for this admission?: Yes Plan: Acute exacerbation has resolved. Continue Breo and Spiriva. Continue as needed nebulizer treatments. Continue incentive spirometer and flutter valve. (2) Cellulitis of both feet Is this a current diagnosis for this admission?: Yes Plan: Resolved; patient does continue to have evidence of tinea pedis. The patient was empirically treated with Levaquin secondary to penicillin allergy; received full course of therapy.. Continue topical antifungal. (3) Chronic systolic CHF (congestive heart failure) Is this a current diagnosis for this admission?: Yes Plan: Stable and without exacerbation at this time. Continue cardiac diet and daily weights. Continue Plavix, carvedilol, and furosemide. (4) Debility and deconditioning Is this a current diagnosis for this admission?: Yes Plan: PT/OT are consulted. Patient would benefit from SNF for ongoing physical therapy; expected to require a stay of less than 30 days. Discharge planning is consulted. (5) Diabetes Qualifiers: Diabetes mellitus type: type 2 Is this a current diagnosis for this admission?: Yes Plan: Patient is on a consistent carb/cardiac diet. Continue metformin 500 mg every 8 hours. Humalog for sliding scale coverage. Glucose elevations may be secondary to steroid use and treatment of COPD exacerbation. Dietary discretion is advised. Hypoglycemia protocol in place. (6) Diarrhea Qualifiers: Diarrhea type: unspecified type Qualified Code(s): R19.7 - Diarrhea, unspecified Is this a current diagnosis for this admission?: Yes Plan: C. difficile PCR negative. Stool culture pending. Rare WBCs and stool sample. Significant increase in frequency of stools today. CT ABD/Pelvis w/ oral contrast was negative for intestinal obstruction, scattered gas fluids were identified throughout the transverse colon (can be see n in diarrheal illness or cathartic use) and no other evidence of acute abdominal/pelvic processes. WBCs elevated to 13k. Although evidence of colitis was not clearly identified on CT; given the prog ressively worsening symptoms (new report of left lower quadrant abdominal discomfort, increased frequency and volume of stools, incontinence of stools) and leukocytosis, will start the patient on p.o. ciprofloxacin and metronidazole. We will also begin twice daily probiotic. Patient is encouraged to increase fiber intake; will add daily Metamucil. (7) Peripheral arterial disease S/P stent Is this a current diagnosis for this admission?: Yes Plan: Patient reports history of peripheral arterial disease. Continue Plavix. Recommend outpatient vascular surgeon evaluation for claudication. (8) Tinea pedis Qualifiers: Laterality: bilateral Qualified Code(s): B35.3 - Tinea pedis Is this a current diagnosis for this admission?: Yes Plan: Continue clotrimazole cream topical application every 8 hours; will require several weeks of treatment. Keep feet dry. Maintain adequate blood glucose control. - Time Time Spent with patient: 35 or more minutes Medications reviewed and adjusted accordingly: Yes Anticipated discharge: SNF Within: within 48 hours
[2018-08-27] MEDS: ATORVASTATIN CALCIUM 40 MG TABLET PO SCH (21:05)
[2018-08-27] MEDS: CIPROFLOXACIN HCL 500 MG TABLET PO SCH (21:09)
[2018-08-27] MEDS: METRONIDAZOLE 500 MG TABLET PO SCH (21:09)
[2018-08-28] MEDS: GABAPENTIN 300 MG CAPSULE PO SCH ×3 (06:00→22:09)
[2018-08-28] MEDS: METRONIDAZOLE 500 MG TABLET PO SCH ×3 (06:01→22:08)
[2018-08-28] MEDS: METFORMIN HCL 500 MG TABLET PO SCH ×3 (06:01→22:08)
[2018-08-28 06:22] LABS: HEMATOCRIT 42.3 % (37.9-51.0); HEMOGLOBIN 14.9 g/dL (13.5-17.0); MEAN CORPUSCULAR HEMOGLOBIN 32.7 pg (27.0-33.4); MEAN CORPUSCULAR HGB CONC 35.1 g/dL (32.0-36.0); MEAN CORPUSCULAR VOLUME 93 fl (80-97); PLATELET COUNT 124 10^3/uL (150-450); RED BLOOD COUNT 4.55 10^6/uL (4.35-5.55); RED CELL DISTRIBUTION WIDTH 12.8 % (11.5-14.0); WHITE BLOOD COUNT 9.9 10^3/uL (4.0-10.5)
[2018-08-28 06:55] LABS: ANION GAP 13 (5-19); BLOOD UREA NITROGEN 27 mg/dL (7-20); CALCIUM 9.6 mg/dL (8.4-10.2); CARBON DIOXIDE 25 mmol/L (22-30); CHLORIDE 100 mmol/L (98-107); GLUCOSE 168 mg/dL (75-110); POTASSIUM 4.5 mmol/L (3.6-5.0); SODIUM 138.1 mmol/L (137-145)
[2018-08-28] MEDS: ACETAMINOPHEN 325 MG TABLET PO PRN ×2 (08:14→13:16)
[2018-08-28] MEDS: INSULIN LISPRO 100 UNIT/ML 3 ML VIAL SUBCUT SCH ×4 (08:18→22:09)
[2018-08-28] MEDS: CLOTRIMAZOLE 1% CREAM 15 GM TP SCH ×3 (08:19→22:11)
[2018-08-28] MEDS: NICOTINE 21 MG/24 HR PATCH.TD24 TD SCH (09:01)
[2018-08-28] MEDS: FLUTICASONE/VILANTEROL 100-25 MCG/DOSE IH SCH (09:02)
[2018-08-28] MEDS: TIOTROPIUM BROMIDE DPI 5 CAP/KIT (18 MCG/CAP) IH SCH (09:03)
[2018-08-28] MEDS: CIPROFLOXACIN HCL 500 MG TABLET PO SCH ×2 (09:04→22:08)
[2018-08-28] MEDS: LACTOBACILLUS ACIDOPHILUS 250 MG TAB PO SCH ×2 (09:05→17:40)
[2018-08-28] MEDS: PREDNISONE 20 MG TABLET PO SCH ×2 (09:05→17:40)
[2018-08-28] MEDS: CLOPIDOGREL BISULFATE 75 MG TABLET PO SCH (09:05)
[2018-08-28] MEDS: FAMOTIDINE 20 MG TABLET PO SCH ×2 (09:05→22:08)
[2018-08-28] MEDS: CARVEDILOL 3.125 MG TABLET PO SCH ×2 (09:05→22:08)
[2018-08-28] MEDS: FUROSEMIDE 40 MG TABLET PO SCH (09:06)
--- NOTE | 2018-08-28 16:36 | PDOC PROGRESS REPORT ---
Subjective Progress Note for:: 08/28/18 Subjective:: Patient seen on morning rounds. He is found sitting up to the recliner comfortably on room air. Patient reports that his abdominal discomfort and frequency of stools has decreased since yesterday (following start of probiotics, Cipro and Flagyl); no bowel movement since waking this morning. Overall, he is feeling much improved. He otherwise denies fever, chills, headache, dizziness, chest pain, palpitations, dyspnea, orthopnea, nausea, vomiting. He has no questions or concerns at this time. No concerns per nursing. Reason For Visit: COPD EXACERBATION AND CELLULITIS BOTH FEET Physical Exam Vital Signs: Temp Pulse Resp BP Pulse Ox 97.7 F 48 L 17 131/54 H 100 08/28/18 11:47 08/28/18 11:47 08/28/18 11:47 08/28/18 11:47 08/28/18 11:47 Intake & Output 08/27/18 08/28/18 08/29/18 06:59 06:59 06:59 Intake Total 966 1360 Output Total 700 1675 Balance 266 -315 Weight 112.1 kg 112.1 kg General appearance: PRESENT: no acute distress, cooperative, obese, well- developed, well-nourished Head exam: PRESENT: atraumatic, normocephalic Eye exam: PRESENT: conjunctiva pink, EOMI, PERRLA. ABSENT: scleral icterus Ear exam: PRESENT: normal external ear exam Mouth exam: PRESENT: moist, tongue midline Teeth exam: PRESENT: poor dentation Neck exam: ABSENT: carotid bruit, JVD, lymphadenopathy, thyromegaly Respiratory exam: PRESENT: clear to auscultation rom, symmetrical, unlabored. ABSENT: rales, rhonchi, wheezes Cardiovascular exam: PRESENT: RRR, +S1, +S2. ABSENT: diastolic murmur, rubs, systolic murmur Pulses: PRESENT: normal dorsalis pedis pul Vascular exam: PRESENT: normal capillary refill GI/Abdominal exam: PRESENT: normal bowel sounds, soft. ABSENT: distended, guarding, mass, organolmegaly, rebound, tenderness Rectal exam: PRESENT: deferred Extremities exam: PRESENT: full ROM. ABSENT: calf tenderness, clubbing, pedal edema Musculoskeletal exam: PRESENT: ambulatory - Ambulatory with front wheel walker Neurological exam: PRESENT: alert, awake, oriented to person, oriented to place, oriented to time, oriented to situation, CN II-XII grossly intact. ABSENT: motor sensory deficit Psychiatric exam: PRESENT: appropriate affect, normal mood. ABSENT: homicidal ideation, suicidal ideation Skin exam: PRESENT: dry, intact, warm. ABSENT: cyanosis, rash Results Laboratory Results: 08/28/18 05:34 08/28/18 05:34 08/28/18 08/28/18 05:34 05:34 WBC 9.9 RBC 4.55 Hgb 14.9 Hct 42.3 MCV 93 MCH 32.7 MCHC 35.1 RDW 12.8 Plt Count 124 L Sodium 138.1 Potassium 4.5 Chloride 100 Carbon Dioxide 25 Anion Gap 13 BUN 27 H Creatinine 0.78 Est GFR ( Amer) > 60 Est GFR (Non-Af Amer) > 60 Glucose 168 H Calcium 9.6 08/26/18 08:50 Stool - Stool - Final 08/07/18 08/07/18 08/07/18 13:30 13:30 20:00 Creatine Kinase 310 H 250 H CK-MB (CK-2) Troponin I 0.015 NT-Pro-B Natriuret Pep 425 08/07/18 08/08/18 08/08/18 20:00 01:40 01:40 Creatine Kinase 295 H CK-MB (CK-2) 3.77 4.91 H Troponin I 0.014 0.012 NT-Pro-B Natriuret Pep 08/08/18 08/08/18 07:30 07:30 Creatine Kinase 409 H CK-MB (CK-2) 6.60 H Troponin I 0.018 NT-Pro-B Natriuret Pep 1040 H Impressions: Foot X-Ray 08/07/18 13:30 IMPRESSION: NEGATIVE STUDY OF THE RIGHT FOOT. NO RADIOGRAPHIC EVIDENCE OF ACUTE INJURY. Lower Extremity Ultrasound 08/11/18 00:00 IMPRESSION: Right: High-grade stenosis proximal femoral artery. Occluded posterior tibial artery. Left: Occluded femoral artery stent. Reconstituted flow with estimated 50% stenosis in the popliteal artery. Retrograde flow below the knee. Aorta w/Runoff CTA 08/13/18 11:50 IMPRESSION: 1. Mild diffuse inflow disease. No obvious high-grade stenosis. 2. Occluded left SFA. Collateral vessels reconstitute the left popliteal artery just above the knee joint. There is severe left infrapopliteal disease. 3. Moderate to severe distal left SFA and popliteal disease. There is severe left infrapopliteal disease. Correlation with conventional arteriography is recommended. Chest X-Ray 08/15/18 00:00 IMPRESSION: NO ACUTE RADIOGRAPHIC FINDING IN THE CHEST. Abdomen/Pelvis CT 08/27/18 00:00 IMPRESSION: 1. No evidence of intestinal obstruction. Scattered gas fluid levels throughout the transverse colon which can be seen with diarrheal illness or cathartic use. No other evidence of acute intra-abdominal/pelvic process. 2. Additional chronic findings as above. Assessment and Plan - Diagnosis (1) COPD exacerbation Is this a current diagnosis for this admission?: Yes Plan: Acute exacerbation has resolved. Continue Breo and Spiriva. Continue as needed nebulizer treatments. Continue incentive spirometer and flutter valve. (2) Cellulitis of both feet Is this a current diagnosis for this admission?: Yes Plan: Resolved; patient does continue to have evidence of tinea pedis. The patient was empirically treated with Levaquin secondary to penicillin allergy; received full course of therapy. Continue topical antifungal. (3) Chronic systolic CHF (congestive heart failure) Is this a current diagnosis for this admission?: Yes Plan: Stable and without exacerbation at this time. Continue cardiac diet and daily weights. Continue Plavix, carvedilol, and furosemide. (4) Debility and deconditioning Is this a current diagnosis for this admission?: Yes Plan: PT/OT are consulted. Patient would benefit from SNF for ongoing physical therapy; expected to require a stay of less than 30 days. Discharge planning is consulted. (5) Diabetes Qualifiers: Diabetes mellitus type: type 2 Is this a current diagnosis for this admission?: Yes Plan: Patient is on a consistent carb/cardiac diet. Continue metformin 500 mg every 8 hours. Humalog for sliding scale coverage. Dietary discretion is advised. Hypoglycemia protocol in place. (6) Diarrhea Qualifiers: Diarrhea type: unspecified type Qualified Code(s): R19.7 - Diarrhea, unspecified Is this a current diagnosis for this admission?: Yes Plan: Improved today; no bowel movements overnight or this morning. C. difficile PCR negative. Stool culture pending. Rare WBCs and stool sample. CT ABD/Pelvis w/ oral contrast was negative for intestinal obstruction, scattered gas fluids were identified throughout the transverse colon (can be seen in diarrheal illness or cathartic use) and no other evidence of acute abdominal/pelvic processes. Patient is afebrile and leukocytosis has resolved. Although evidence of colitis was not clearly identified on CT; given the pr ogressively worsening symptoms (new report of left lower quadrant abdominal discomfort, increased frequency and volume of stools, incontinence of stools) and leukocytosis, the patient was started on p.o. ciprofloxacin and metronidazole. Continue ciprofloxacin 500 mg twice daily and metronidazole 500 mg every 8 hours x10 days. Continue twice daily probiotic. Patient is encouraged to increase fiber intake; will add daily Metamucil. (7) Peripheral arterial disease S/P stent Is this a current diagnosis for this admission?: Yes Plan: Patient reports history of peripheral arterial disease. Continue Plavix. Recommend outpatient vascular surgeon evaluation for claudication. (8) Tinea pedis Qualifiers: Laterality: bilateral Qualified Code(s): B35.3 - Tinea pedis Is this a current diagnosis for this admission?: Yes Plan: Continue clotrimazole cream topical application every 8 hours; will require s everal weeks of treatment. Keep feet dry. Maintain adequate blood glucose control. - Time Time Spent with patient: 15-24 minutes Medications reviewed and adjusted accordingly: Yes Anticipated discharge: SNF - vs home Within: within 24 hours
[2018-08-28] MEDS: ATORVASTATIN CALCIUM 40 MG TABLET PO SCH (22:08)
[2018-08-29] MEDS: METRONIDAZOLE 500 MG TABLET PO SCH ×2 (05:42→14:53)
[2018-08-29] MEDS: GABAPENTIN 300 MG CAPSULE PO SCH ×2 (05:42→14:53)
[2018-08-29] MEDS: METFORMIN HCL 500 MG TABLET PO SCH ×2 (05:42→14:53)
[2018-08-29] MEDS: CLOTRIMAZOLE 1% CREAM 15 GM TP SCH ×2 (05:43→14:01)
[2018-08-29] MEDS: INSULIN LISPRO 100 UNIT/ML 3 ML VIAL SUBCUT SCH ×3 (08:00→16:25)
[2018-08-29] MEDS ORDERED: PSYLLIUM SEED-SF 5.85 GM PACKET PO ONE (09:47)
--- NOTE | 2018-08-29 10:03 | PDOC DISCHARGE SUMMARY ---
General - Admit/Disc Date/PCP Admission Date/Primary Care Provider: 08/07/18 16:44 Discharge Date: 08/29/18 - Discharge Diagnosis (1) COPD exacerbation Is this a current diagnosis for this admission?: Yes Summary: Acute exacerbation has resolved. Continue Breo and Spiriva. (2) Cellulitis of both feet Is this a current diagnosis for this admission?: Yes Summary: Resolved; patient does continue to have evidence of tinea pedis. The patient was empirically treated with Levaquin secondary to penicillin allergy; received full course of therapy. Continue topical antifungal. (3) Chronic systolic CHF (congestive heart failure) Is this a current diagnosis for this admission?: Yes Summary: Stable and without exacerbation at this time. Unknown LVEF; no indications for inpatient echocardiogram. Recommend routine follow up upon establishing w/ new PCP upon arrival to [place]. Continue cardiac diet and daily weights. Continue Plavix, carvedilol, and furosemide. (4) Debility and deconditioning Is this a current diagnosis for this admission?: Yes Summary: Improved; patient now independently ambulatory 200 feet with front wheel walker. PT/OT services were consulted. Discharge planning has been consulted to assist with obtaining from a walker for discharge. (5) Diabetes Is this a current diagnosis for this admission?: Yes Summary: Well-controlled; A1c 5.5%. Patient is on a consistent carb/cardiac diet. Continue metformin 500 mg every 8 hours. Continue consistent carb diet. (6) Diarrhea Is this a current diagnosis for this admission?: Yes Summary: Significantly improved; only one soft semi-formed bowel movement in last 24 hours. C. difficile PCR negative. Stool culture pending. Rare WBCs and stool sample. CT ABD/Pelvis w/ oral contrast was negative for intestinal obstruction, scattered gas fluids were identified throughout the transverse colon (can be seen in diarrheal illness or cathartic use) and no other evidence of acute abdominal/pelvic processes. Patient is afebrile and leukocytosis has resolved. Although evidence of colitis was not clearly identified on CT; given the progressively worsening symptoms (new report of left lower quadrant abdominal discomfort, increased frequency and volume of stools, incontinence of stools) and leukocytosis, the patient was started on p.o. ciprofloxacin and metron idazole. Continue ciprofloxacin 500 mg twice daily and metronidazole 500 mg every 8 hours x10 days. Continue twice daily probiotic. Patient is encouraged to increase fiber intake; will add daily Metamucil. (7) Peripheral arterial disease S/P stent Is this a current diagnosis for this admission?: Yes Summary: Patient reports history of peripheral arterial disease. Continue Plavix. Recommend outpatient vascular surgeon evaluation for claudication. (8) Tinea pedis Is this a current diagnosis for this admission?: Yes Summary: Continue clotrimazole cream topical application every 8 hours; will require several weeks of treatment. Keep feet dry. Maintain adequate blood glucose control. - Additional Information Resuscitation Status: Full Code Discharge Diet: Cardiac, Diabetic Discharge Activity: Activity As Tolerated, Balance Activity w/Rest Prescriptions: RX: Atorvastatin Calcium [Lipitor 40 mg Tablet] 40 mg PO QHS #30 tablet RX: Carvedilol [Coreg 3.125 mg Tablet] 3.125 mg PO Q12 #60 tablet RX: Ciprofloxacin HCl [Cipro 500 mg Tablet] 500 mg PO Q12 #20 tablet RX: Clopidogrel Bisulfate [Plavix 75 mg Tablet] 75 mg PO DAILY #30 tablet RX: Clotrimazole 1% Cream [Lotrimin 1% Cream 15 gm] 1 applic TP Q8 #1 tube RX: Lactobacillus Acidophilus [Bacid 250 mg Tablet] 250 mg PO BID #20 tab RX: Metronidazole [Flagyl 500 mg Tablet] 500 mg PO Q8 #30 tablet Home Medications: RX: Carvedilol [Coreg 3.125 mg Tablet] 3.125 mg PO Q12 08/07/18 RX: Gabapentin [Neurontin 300 mg Capsule] 600 mg PO Q8 08/07/18 RX: Metformin HCl [Metformin HCl ER] 750 mg PO BID 08/07/18 RX: Acetaminophen [Tylenol 325 mg Tablet] 650 mg PO Q4HP PRN tablet 08/22/18 RX: Famotidine [Pepcid 20 mg Tablet] 20 mg PO Q12 tablet 08/22/18 RX: Fluticasone/Vilanterol [Breo 100-25 Mcg Ellipta 14 Dose/Dpi] 1 inh IH DAILY inhaler 08/22/18 RX: Furosemide [Lasix 40 mg Tablet] 40 mg PO DAILY tablet 08/22/18 RX: Gabapentin [Neurontin 300 mg Capsule] 600 mg PO Q8 capsule 08/22/18 RX: Insulin Lispro [Humalog Insulin (Lispro) 100 unit/mL] 0 - 12 unit SUBCUT Q6 unit 08/22/18 RX: Ipratropium/Albuterol Sulfate [Duoneb 3 ml Ampul] 3 ml NEB RTQ8 PRN vial.neb 08/22/18 RX: Loperamide HCl [Imodium 2 mg Capsule] 2 mg PO Q4HP PRN capsule 08/22/18 RX: Nicotine [Nicoderm 21 mg/24 Hr Transderm Patch] 1 each TD DAILY patch.td24 08/22/18 RX: Prednisone [Deltasone 20 mg Tablet] 20 mg PO BID tablet 08/22/18 RX: Tiotropium [place] [Spiriva Handihaler 5 Cap/Kit (18 Mcg/Cap)] 1 cap IH DAILY kit 08/22/18 RX: Albuterol Sulfate [Ventolin 0.083% Neb 2.5 mg/3 mL Ampul] 2.5 mg NEB RTQ4HP PRN vial.neb 08/28/18 RX: Atorvastatin Calcium [Lipitor 40 mg Tablet] 40 mg PO QHS #30 tablet 08/28/18 RX: Carvedilol [Coreg 3.125 mg Tablet] 3.125 mg PO Q12 #60 tablet 08/28/18 RX: Ciprofloxacin HCl [Cipro 500 mg Tablet] 500 mg PO Q12 #20 tablet 08/28/18 RX: Clopidogrel Bisulfate [Plavix 75 mg Tablet] 75 mg PO DAILY #30 tablet 08/28/18 RX: Clotrimazole 1% Cream [Lotrimin 1% Cream 15 gm] 1 applic TP Q8 #1 tube 08/28/18 RX: Lactobacillus Acidophilus [Bacid 250 mg Tablet] 250 mg PO BID #20 tab 08/28/18 RX: Metronidazole [Flagyl 500 mg Tablet] 500 mg PO Q8 #30 tablet 08/28/18 History of Present Illness History of Present Illness: Per H&P by Dr. Baldwin: AREN SIMPSON is a 68 year old male with a history of hypertension, diabetes mellitus, congestive heart failure, myocardial ischemia left lower leg stent placement, left carotid endarterectomy, COPD, emphysema came to the emergency room with complaints of redness of the both feet associated with swelling and pain for the last few days. He is homeless and walking in the [place]. He is also told the ER physician he has a problem with breathing and increasing wheezing with minimal activity. Medical consult was called for admission. Patient denies any history of fever complaining of nonspecific shortness of breath associated wheezing and dry cough denies any headache dizzy spells denies any nausea vomiting diarrhea denies any abdominal pains denies any symptoms complaining of redness swelling of the both feet associated with severe pain. Physical Exam Vital Signs: Temp Pulse Resp BP Pulse Ox 97.6 F 58 L 18 116/55 L 98 08/29/18 08:00 08/29/18 08:00 08/29/18 08:00 08/29/18 08:00 08/29/18 08:00 Intake & Output 08/28/18 08/29/18 08/30/18 06:59 06:59 06:59 Intake Total 1360 1822 Output Total 1675 1400 Balance -315 422 Weight 112.1 kg 112.1 kg General appearance: PRESENT: no acute distress, cooperative, obese, well- developed, well-nourished Head exam: PRESENT: atraumatic, normocephalic Eye exam: PRESENT: conjunctiva pink, EOMI, PERRLA. ABSENT: scleral icterus Ear exam: PRESENT: normal external ear exam Mouth exam: PRESENT: moist, tongue midline Teeth exam: PRESENT: poor dentation Neck exam: ABSENT: carotid bruit, JVD, lymphadenopathy, thyromegaly Respiratory exam: PRESENT: clear to auscultation rom, symmetrical, unlabored. ABSENT: rales, rhonchi, wheezes Cardiovascular exam: PRESENT: RRR, +S1, +S2. ABSENT: diastolic murmur, rubs, systolic murmur Pulses: PRESENT: normal dorsalis pedis pul Vascular exam: PRESENT: normal capillary refill GI/Abdominal exam: PRESENT: normal bowel sounds, soft. ABSENT: distended, guarding, mass, organolmegaly, rebound, tenderness Rectal exam: PRESENT: deferred Extremities exam: PRESENT: full ROM. ABSENT: calf tenderness, clubbing, pedal edema Musculoskeletal exam: PRESENT: ambulatory - 200 feet independently with front wheel walker Neurological exam: PRESENT: alert, awake, oriented to person, oriented to place, oriented to time, oriented to situation, CN II-XII grossly intact. ABSENT: motor sensory deficit Psychiatric exam: PRESENT: appropriate affect, normal mood. ABSENT: homicidal ideation, suicidal ideation Skin exam: PRESENT: dry, erythema - w/ peeling od skin r/t resolving cellulitis/marizol infection, intact, warm. ABSENT: cyanosis, rash Results Laboratory Results: 08/28/18 05:34 08/28/18 05:34 08/26/18 08:50 Stool - Stool - Final 08/07/18 08/07/18 08/07/18 13:30 13:30 20:00 Creatine Kinase 310 H 250 H CK-MB (CK-2) Troponin I 0.015 NT-Pro-B Natriuret Pep 425 08/07/18 08/08/18 08/08/18 20:00 01:40 01:40 Creatine Kinase 295 H CK-MB (CK-2) 3.77 4.91 H Troponin I 0.014 0.012 NT-Pro-B Natriuret Pep 08/08/18 08/08/18 07:30 07:30 Creatine Kinase 409 H CK-MB (CK-2) 6.60 H Troponin I 0.018 NT-Pro-B Natriuret Pep 1040 H Impressions: Foot X-Ray 08/07/18 13:30 IMPRESSION: NEGATIVE STUDY OF THE RIGHT FOOT. NO RADIOGRAPHIC EVIDENCE OF ACUTE INJURY. Lower Extremity Ultrasound 08/11/18 00:00 IMPRESSION: Right: High-grade stenosis proximal femoral artery. Occluded posterior tibial artery. Left: Occluded femoral artery stent. Reconstituted flow with estimated 50% stenosis in the popliteal artery. Retrograde flow below the knee. Aorta w/Runoff CTA 08/13/18 11:50 IMPRESSION: 1. Mild diffuse inflow disease. No obvious high-grade stenosis. 2. Occluded left SFA. Collateral vessels reconstitute the left popliteal artery just above the knee joint. There is severe left infrapopliteal disease. 3. Moderate to severe distal left SFA and popliteal disease. There is severe l eft infrapopliteal disease. Correlation with conventional arteriography is recommended. Chest X-Ray 08/15/18 00:00 IMPRESSION: NO ACUTE RADIOGRAPHIC FINDING IN THE CHEST. Abdomen/Pelvis CT 08/27/18 00:00 IMPRESSION: 1. No evidence of intestinal obstruction. Scattered gas fluid levels throughout the transverse colon which can be seen with diarrheal illness or cathartic use. No other evidence of acute intra-abdominal/pelvic process. 2. Additional chronic findings as above. Qualifiers - * PATIENT BEING DISCHARGED WITH ANY OF THE FOLLOWING DIAGNOSIS: No Acute Heart Failure - Is this a Heart Failure Patient?: No LVEF < 40%?: No- if no continue to question #3 Plan Discharge Plan: Discharge to home with self-care. Establish with primary care provider upon arrival to [place]. Recommend that you follow-up with a vascular surgeon upon arrival to [place]; this referral will likely need to be placed through your new primary care provider. Take medications as prescribed. Follow a consistent carb and cardiac diet. Return to the emergency department as needed for concerning symptoms. Time Spent: Greater than 30 Minutes
[2018-08-29] MEDS: FUROSEMIDE 40 MG TABLET PO SCH (10:34)
[2018-08-29] MEDS: CLOPIDOGREL BISULFATE 75 MG TABLET PO SCH (10:34)
[2018-08-29] MEDS: FAMOTIDINE 20 MG TABLET PO SCH (10:35)
[2018-08-29] MEDS: NICOTINE 21 MG/24 HR PATCH.TD24 TD SCH (10:36)
[2018-08-29] MEDS: LACTOBACILLUS ACIDOPHILUS 250 MG TAB PO SCH (10:36)
[2018-08-29] MEDS: PREDNISONE 20 MG TABLET PO SCH (10:36)
[2018-08-29] MEDS: CIPROFLOXACIN HCL 500 MG TABLET PO SCH (10:42)
[2018-08-29] MEDS: CARVEDILOL 3.125 MG TABLET PO SCH (10:42)
[2018-08-29] MEDS: FLUTICASONE/VILANTEROL 100-25 MCG/DOSE IH SCH (10:42)
[2018-08-29] MEDS: TIOTROPIUM BROMIDE DPI 5 CAP/KIT (18 MCG/CAP) IH SCH (10:43)
[2018-08-29 14:46] VITALS: BP 126/53
== END 2018-08-29 16:45 | disposition home or self-care (01) | DRG 191 ==
LOC: ER 13:08 → EH 16:44 → OBSVTOIN 16:44 → 5 19:42
PROVIDERS: ADMIT Internal Medicine; ATTEND Internal Medicine
DX: J43.9 Emphysema, unspecified (principal); L03.116 Cellulitis of left lower limb; L03.115 Cellulitis of right lower limb; I50.22 Chronic systolic (congestive) heart failure; B35.3 Tinea pedis; I11.0 Hypertensive heart disease with heart failure; F32.9 Major depressive disorder, single episode, unspecified; E66.9 Obesity, unspecified; Z68.38 Body mass index [BMI] 38.0-38.9, adult; E11.51 Type 2 diabetes mellitus with diabetic peripheral angiopathy without gangrene; R19.7 Diarrhea, unspecified; I25.2 Old myocardial infarction; Z59.0 Homelessness; Z79.899 Other long term (current) drug therapy; Z79.84 Long term (current) use of oral hypoglycemic drugs; Z90.49 Acquired absence of other specified parts of digestive tract; Z83.3 Family history of diabetes mellitus; Z82.49 Family history of ischemic heart disease and other diseases of the circulatory system; Z88.0 Allergy status to penicillin; Z71.6 Tobacco abuse counseling; Z99.81 Dependence on supplemental oxygen
CPT/HCPCS: 36415; 71045; 74176; 75635; 80048; 80053; 80061; 80307; 82550; 82553; 82962; 83036; 83605; 83735; 83880; 84443; 84484; 85025; 85027; 85610; 87040; 87045; 87205; 87493; 89055; 93005; 93010; 93925; 94640; 94667; 94668; 94799; 96374; 99285; J1650; J1815; J2270; J2300; J2405; J2920; J2930; J3490; J7512; J7620